=== PATIENT | male | born 1965 | race Caucasian/White ===

== ENCOUNTER 2022-06-07 15:23 | Outpatient (REF) | payer OTHER, SELFPAY ==
--- NOTE | ~2022-06-07 | US_ITS ---
EXAMINATION: US RETROPERITONEAL LIMITED (RENAL ONLY) CLINICAL INFORMATION: Flank pain, hypertension. COMPARISON: None TECHNIQUE: Real-time imaging of the kidneys. FINDINGS: RIGHT KIDNEY: 9.8 x 6.9 x 6.7 cm (SAG x AP x TRV). The kidney is normal in size, contour, and echogenicity. Renal cortical thickness is normal. No calculi or focal parenchymal lesions. No hydronephrosis. LEFT KIDNEY: 11.5 x 5.8 x 7.0 cm (SAG x AP x TRV). The kidney is normal in size, contour, and echogenicity. Renal cortical thickness is normal. No calculi or focal parenchymal lesions. No hydronephrosis. US/US renal BI IMPRESSION: Normal renal ultrasound.
== END 2022-06-07 15:24 | disposition home or self-care (01) ==
LOC: HO.HMGCX 15:23
PROVIDERS: PCP Internal Medicine; Visit Provider Internal Medicine
DX: R10.9 Unspecified abdominal pain (principal)
CPT/HCPCS: 76775

== ENCOUNTER 2022-11-20 17:51 | Inpatient (IN) | payer OTHER, SELFPAY ==
--- NOTE | ~2022-11-20 | CT_ITS ---
EXAMINATION: CT ABDOMEN AND PELVIS WITH CONTRAST CLINICAL INFORMATION: Upper GI bleed. ? esophageal varices COMPARISON: None. TECHNIQUE: Multidetector volumetric imaging was performed from the superior aspect of the liver through the pubic symphysis following administration of 85 mL Omnipaque 300 intravenous contrast. Sagittal and coronal reformatted images were obtained on the technologist workstation.. This CT examination was performed using dose optimization techniques as appropriate, variously including the following: *Automated exposure control *Adjustment of mA and/or kV according to patient size (this includes techniques or standardized protocols for targeted exams where dose is matched to indication/reason for exam; i.e. extremities or head) *Use of iterative reconstruction technique DLP: 871 mGy-cm FINDINGS: LUNG BASES: The visualized lung bases are unremarkable. LIVER, GALLBLADDER, AND BILIARY TREE: Liver demonstrates a nodular contour suggesting underlying fibrotic/cirrhotic changes. Subtle scattered subcentimeter hypodensities are seen but these are too small to characterize further on this study. Gallstones in the dependent aspect of the otherwise unremarkable gallbladder PANCREAS: Unremarkable. SPLEEN: Splenomegaly with maximal AP diameter of 16.7 cm. ADRENAL GLANDS: Unremarkable. KIDNEYS AND URETERS: The kidneys are normal in size, shape, and attenuation. No hydronephrosis, hydroureter, or calculi seen. No perinephric stranding. BLADDER: Unremarkable. GASTROINTESTINAL TRACT: Colon is mostly decompressed. There is mild fatty replacement in the colonic wall more so in the ascending colon. This could represent sequela of prior inflammatory change but I do not appreciate any abnormal enhancement to suggest an acute inflammatory process. Appendix is unremarkable. Visualized small bowel is unremarkable. Nasogastric tube seen within the stomach. ABDOMINAL WALL: No significant hernia is appreciated. LYMPHOVASCULAR STRUCTURES: Vascular calcification within the aorta iliac system. Visualized superior mesenteric vein, splenic vein, portal veins, and hepatic veins are grossly patent. A few small paraesophageal varicosities are noted PELVIC VISCERA: Unremarkable. OSSEOUS STRUCTURES: Mild multilevel degenerative changes in the spine CT/CT abdomen pelvis w IV con IMPRESSION: Nodular contour to the liver suggesting underlying fibrotic/cirrhotic changes. There is splenomegaly and small paraesophageal varicosities suggesting underlying portal hypertension. No acute intra-abdominal process seen. There is mild fatty replacement in the colonic wall more so in the ascending colon. This could represent sequela of prior inflammatory change but I do not appreciate any abnormal enhancement to suggest an acute inflammatory process.
[2022-11-20 19:01] LABS: MANUAL DIFF FLAG NO
[2022-11-20 19:02] LABS: Basophils Absolute Auto 0.1 X10*3/uL (0.0-0.2); Basophils Percent Auto 0.4 % (0-2); Eosinophils Percent Auto 0.1 % (0-4); Hematocrit 33.5 % (42.0-52.0); Hemoglobin 12.1 g/dl (14.0-18.0); Imm Gran Abs Auto 0.07 X10*3/uL (0.00-0.03); Imm Gran Pct Auto 0.5 % (0.0-0.4); Lymphocytes Absolute Auto 1.3 X10*3/uL (1.2-4.9); Lymphocytes Percent Auto 9.9 % (20-40); Mean Corpuscular HGB Conc 36.1 g/dl (31.0-36.0); Mean Corpuscular Hemoglobin 35.2 pg (27.0-33.0); Mean Corpuscular Volume 97.4 fL (80.0-98.0); Mean Platelet Volume 9.6 fL (9.4-12.4); Monocytes Absolute Auto 1.1 X10*3/uL (0.1-1.2); Monocytes Percent Auto 7.9 % (2-11); Neutrophils Absolute Auto 10.8 x10*3/uL (2.0-8.3); Neutrophils Percent Auto 81.2 % (45-73); Red Blood Count 3.44 X10*6/uL (4.60-5.80); White Blood Count 13.3 X10*3/uL (4.8-10.8)
[2022-11-20 19:03] LABS: Platelet Count 96 X10*3/uL (160-400)
[2022-11-20 19:08] LABS: INTERNATIONAL NORM RATIO 1.3 (0.9-1.1); Prothrombin Time 14.7 SEC (10.0-13.1)
[2022-11-20 19:11] LABS: Partial Thromboplastin Time 28.6 SEC (26.0-36.4)
[2022-11-20 19:21] LABS: Ethanol < 10 mg/dL
[2022-11-20 19:28] LABS: Alanine Aminotransferase 38 U/L (0-40); Albumin Level 3.1 g/dL (3.5-5.0); Alkaline Phosphatase 93 U/L (39-117); Anion Gap 15 (12-20); Aspartate Amino Transferase 58 U/L (5-37); Bilirubin Direct 1.7 mg/dL (0.0-0.5); Bilirubin Total 4.4 mg/dL (0.0-1.0); Blood Urea Nitrogen 33 mg/dL (9-16); Calcium 8.9 mg/dL (8.4-10.2); Carbon Dioxide 25 mmol/L (22-29); Chloride 101 mmol/L (96-108); Estimated Glomerular Filt Rate > 60; Glucose Random 161 mg/dL (60-115); Lipase 17 U/L (8-78); Magnesium 1.4 mg/dL (1.6-2.6); Potassium 4.8 mmol/L (3.3-5.1); Sodium 136 mmol/L (135-145); Total Protein 5.8 g/dL (6.5-8.0)
[2022-11-20 20:16] VITALS: BP 113/83; PULSE 137; RESP 18; TEMP 36; O2SAT 99; BMI 38.0
--- NOTE | 2022-11-20 20:16 | ED.NAVMDI ---
HPI - Nausea/Vomiting/Diarrhea General Chief complaint: Nausea/Vomiting/Diarrhea <SHAZIA Gates - Last Filed: 11/20/22 20:22> Stated complaint: vomiting blood <SHAZIA Gates - Last Filed: 11/20/22 20:22> Time Seen by Provider: 11/20/22 21:10 <SHAZIA Gates - Last Filed: 11/20/22 20:22> Source: patient, family, RN notes reviewed and old records reviewed <Teja Barreto - Last Filed: 11/20/22 23:26> Mode of arrival: ambulatory <Teja Barreto - Last Filed: 11/20/22 23:26> Limitations: no limitations <Teja Barreto - Last Filed: 11/20/22 23:26> History of Present Illness HPI Narrative: A 57-year-old male past medical history significant for alcohol dependence, hypertension, obesity presents for evaluation of ?vomiting blood. ? Patient reports that this morning approximately 12 hours ago while at work he felt nauseous and vomited ?a lot of bright red blood. He states that he has vomited a total of 7 times today and as always been either bright red blood or coffee-ground in appearance. He reports he also started with dark black stool today Denies any history of GI bleed He denies any abdominal pain The patient is not on any anticoagulation He reports that he uses ibuprofen 600 mg every other day He reports that he drinks approximately 8 beers per day and occasionally also has ?rum and coke. The patient denies any history of alcohol withdrawal His last drink was late last night <Teja Barreto - Last Filed: 11/20/22 23:26> Related Data Home medications: Previous Rx's Medication Instructions Recorded sildenafil 100 mg tablet (Viagra) 100 mg PO DAILY PRN sexual 07/22/22 activity #14 tabs lisinopril 20 1 tab PO DAILY 90 days #90 tabs 08/11/22 mg-hydrochlorothiazide 25 mg tablet <SHAZIA Gates - Last Filed: 11/20/22 20:22> Allergies/Adverse reactions: Allergies Allergy/AdvReac Type Severity Reaction Status Date / Time No Known Allergies Allergy Verified 11/20/22 20:16 <SHAZIA Gates - Last Filed: 11/20/22 20:22> Review of Systems Constitutional: Constitutional: Denies anorexia, Denies body ache(s), Denies lethargy, Denies malaise and Denies weakness <Teja Barreto - Last Filed: 11/20/22 23:26> Cardiovascular: Cardiovascular: Denies chest pain and Denies dyspnea <Teja Barreto - Last Filed: 11/20/22 23:26> Respiratory: Respiratory: Denies cough and Denies dyspnea <Teja Barreto - Last Filed: 11/20/22 23:26> Gastrointestinal: Gastrointestinal: Denies abdominal pain, Reports melena and Reports coffee ground emesis <Teja Barreto - Last Filed: 11/20/22 23:26> Neurologic: Denies weakness <Teja Barreto - Last Filed: 11/20/22 23:26> PMFSH Past Medical History Medical History: Medical History (Updated 11/20/22 @ 21:56 by Teja Barreto) Erectile dysfunction Fractured coccyx Hypertension Lumbar stress fracture Obesity (BMI 30-39.9) Tubular adenoma of colon <SHAZIA Gates - Last Filed: 11/20/22 20:22> Surgical History: Surgical History (Updated 05/13/20 @ 06:09 by Melissa [place] Deyanira) No pertinent past surgical history <SHAZIA Gates - Last Filed: 11/20/22 20:22> Family History Family History: Family History (Updated 05/22/22 @ 18:08 by Dalton Pisano MD) Father No problems noted. Mother No problems noted. Brother Alcohol abuse Brother CVA (cerebral vascular accident) <SHAZIA Gates - Last Filed: 11/20/22 20:22> Social History Social History: Social History (Updated 05/22/22 @ 18:08 by Dalton Pisano MD) Housing: House Alcohol intake: current Alcohol intake frequency: 3 or more drinks per day Alcohol type: beer and hard liquor Patient Tobacco Use Status: Former Tobacco user Years Smoked: stopped 2016 but does cigar Smoked in Last 30 Days: No e-Cigarette/Vaping Use: Never Used Second Hand Smoke Exposure: No Use of substances other than those prescribed or required for medical reasons: No Advance Directives: No Advance Directives Information Provided: Yes Current occupational status: employed Cognitive needs: No Hearing needs: No Vision needs: Yes <SHAZIA Gates - Last Filed: 11/20/22 20:22> Physical Exam Vital Signs: Vital Signs: Last Vital Signs Temp 98.0 F 11/20/22 22:58 Pulse 122 H 11/20/22 22:58 Resp 20 11/20/22 22:58 BP 115/75 11/20/22 22:58 Pulse Ox 97 11/20/22 22:58 O2 Del Method Room Air 11/20/22 22:58 BMI result Body Mass Index 38.0 <SHAZIA Gates - Last Filed: 11/20/22 20:22> Vital Signs: Last Vital Signs Temp 98.0 F 11/20/22 22:58 Pulse 122 H 11/20/22 22:58 Resp 20 11/20/22 22:58 BP 115/75 11/20/22 22:58 Pulse Ox 97 11/20/22 22:58 O2 Del Method Room Air 11/20/22 22:58 BMI result Body Mass Index 38.0 <Teja Barreto - Last Filed: 11/20/22 23:26> Const: General: healthy appearing, comfortable, no acute distress, alert and awake <Teja Barreto - Last Filed: 11/20/22 23:26> Nutritional Appearance: well nourished <Teja Barreto - Last Filed: 11/20/22 23:26> Orientation/consciousness: patient oriented x3 <Teja Barreto - Last Filed: 11/20/22 23:26> HEENT: Head: Yes normocephalic and Yes atraumatic <Teja Barreto - Last Filed: 11/20/22 23:26> Resp: Effort & Inspection: normal respiratory effort, able to speak in complete sentences, no audible wheezes and not labored <Teja Barreto - Last Filed: 11/20/22 23:26> Auscultation: clear to auscultation bilaterally <Teja Barreto - Last Filed: 11/20/22 23:26> Cardio: Rate: regular rate <Teja Barreto - Last Filed: 11/20/22 23:26> Rhythm: regular rhythm <Teja Barreto - Last Filed: 11/20/22 23:26> GI: Inspection: No distended <Teja Rendony - Last Filed: 11/20/22 23:26> Palpation (GI): Soft to palpation, not firm, nontender, no guarding and not rigid <Teja Rendony - Last Filed: 11/20/22 23:26> Auscultation: normoactive bowel sounds <Teja Rendony - Last Filed: 11/20/22 23:26> Rectal Exam - Male: Yes visual inspection normal, Yes normal sphincter tone, Yes heme positive stool and Yes other (Stool is black in color) <Teja Barreto - Last Filed: 11/20/22 23:26> Skin: General skin exam: no rashes or lesions noted and elasticity normal <Teja Rendony - Last Filed: 11/20/22 23:26> Neuro: General: patient oriented x3 <Tejanikki Barreto - Last Filed: 11/20/22 23:26> Cranial nerves: Yes CN's II-XII intact bilaterally and Yes Bilaterally intact EOM present <Teja Barreto - Last Filed: 11/20/22 23:26> Cognition (Neuro): normal cognition <Teja Barreto Last Filed: 11/20/22 23:26> Course Course Course Narrative: RME - 57 y/o male with history of HTN, obesity, chronic back pain on intermittent NSAIDs who presents to the ER for evaluation of acute onset of projectile bright red vomitus and coffee ground emesis that started this morning. He has had 7 episodes today, last was 20 minutes ago. No abdominal pain. Daily ETOH. Labs show Tbili 4.4. new anemia, worsening thrombocytopenia. no hx liver disease that he knows of. Plan: IV PPI, ?octreotide. add hepatitis panel, defer imaging to main ER provider. next to go back <SHAZIA Gates - Last Filed: 11/20/22 20:22> Reevaluation(s) Reevaluation #1: Patient had NG tube placed with approximately 40-50 cc of dark red blood withdrawn. The patient did vomit dark red blood again after the NG tube was placed. I spoke with GI, Dr. Rodriguez who recommends admission to medical service, NPO and the patient will be scoped in the morning. He recommends starting octreotide but does not recommend ceftriaxone at this time. <Teja Barreto - Last Filed: 11/20/22 23:26> Time: 23:25 <Teja Barreto - Last Filed: 11/20/22 23:26> Medications Administered Discontinued Medications Generic Name Dose Route Start Last Admin Trade Name Freq PRN Reason Stop Dose Admin Sodium Chloride 1,000 mls @ 999 mls/hr 11/20/22 20:30 11/20/22 22:16 Ns IV 11/20/22 21:30 Infused .Q1H1M BETSY Infusion Iohexol 100 ml 11/20/22 22:19 11/20/22 22:20 Iohexol 350 Mg/Ml 100 Ml Infus..Btl IV 11/20/22 22:20 85 ml ONCE ONE Administration Ondansetron HCl 4 mg 11/20/22 23:13 11/20/22 23:22 Ondansetron Hcl 4 Mg/2 Ml Vial IVPUSH 11/20/22 23:14 4 mg ONCE ONE Administration Pantoprazole Sodium 80 mg 11/20/22 20:19 11/20/22 21:17 Pantoprazole Sodium 40 Mg/10 Ml Vial IVPUSH 11/20/22 20:20 80 mg ONCE ONE Administration <SHAZIA Gates - Last Filed: 11/20/22 20:22> Medications Administered Discontinued Medications Generic Name Dose Route Start Last Admin Trade Name Freq PRN Reason Stop Dose Admin Sodium Chloride 1,000 mls @ 999 mls/hr 11/20/22 20:30 11/20/22 22:16 Ns IV 11/20/22 21:30 Infused .Q1H1M BETSY Infusion Iohexol 100 ml 11/20/22 22:19 11/20/22 22:20 Iohexol 350 Mg/Ml 100 Ml Infus..Btl IV 11/20/22 22:20 85 ml ONCE ONE Administration Ondansetron HCl 4 mg 11/20/22 23:13 11/20/22 23:22 Ondansetron Hcl 4 Mg/2 Ml Vial IVPUSH 11/20/22 23:14 4 mg ONCE ONE Administration Pantoprazole Sodium 80 mg 11/20/22 20:19 11/20/22 21:17 Pantoprazole Sodium 40 Mg/10 Ml Vial IVPUSH 11/20/22 20:20 80 mg ONCE ONE Administration <Teja Barreto - Last Filed: 11/20/22 23:26> Medical Decision Making Medical Decision Making MDM Narrative: 57-year-old male presents for evaluation of vomiting blood. He has multiple risk factors for upper GI bleed including alcohol abuse and NSAID use. Patient is black stool on exam that is heme positive. He was initially tachycardic on arrival to 137. This improved to 114 without intervention. The patient's initial H&H was 12.1 and 33.5. [place] [address]. Patient's BUN to creatinine ratio was over 30 his magnesium is low at 1.4. The patient's total bilirubin is 4.4 although he has no abdominal tenderness on exam. Patient has mild transaminitis with an AST of 58 and a normal alk-phos. Patient has no known history of esophageal varices. He was given Protonix 80 mg IV. He clearly has an upper GI bleed, we will put an NG tube in to see if there is any active bleeding. There is no indication for transfusion at this time. The patient is not anticoagulated. Will get a CT scan of the abdomen pelvis to evaluate for esophageal varices <Teja Barreto - Last Filed: 11/20/22 23:26> Differential Diagnosis Upper GI bleed Peptic ulcer disease Esophageal varices Liver cirrhosis <Teja Barreto - Last Filed: 11/20/22 23:26> Lab Data Result Diagrams: 11/20/22 18:57 11/20/22 18:57 <SHAZIA Gates - Last Filed: 11/20/22 20:22> Labs: Lab Results 11/20/22 11/20/22 11/20/22 Range/Units 18:57 18:57 18:57 WBC 13.3 H (4.8-10.8) X10*3/uL RBC 3.44 L (4.60-5.80) X10*6/uL Hgb 12.1 L (14.0-18.0) g/dl Hct 33.5 L (42.0-52.0) % MCV 97.4 (80.0-98.0) fL MCH 35.2 H (27.0-33.0) pg MCHC 36.1 H (31.0-36.0) g/dl RDW 13.0 (11.0-16.0) % Plt Count 96 L (160-400) X10*3/uL MPV 9.6 (9.4-12.4) fL Immature Gran % (Auto) 0.5 H (0.0-0.4) % Neut % (Auto) 81.2 H (45-73) % Lymph % (Auto) 9.9 L (20-40) % Thayer % (Auto) 7.9 (2-11) % Eos % (Auto) 0.1 (0-4) % Baso % (Auto) 0.4 (0-2) % Lymph # (Auto) 1.3 (1.2-4.9) X10*3/uL Thayer # (Auto) 1.1 (0.1-1.2) X10*3/uL Eos # (Auto) 0.0 (0.0-0.4) X10*3/uL Baso # (Auto) 0.1 (0.0-0.2) X10*3/uL Abs Immat Gran (auto) 0.07 H (0.00-0.03) X10*3/uL Absolute Neuts (auto) 10.8 H (2.0-8.3) x10*3/uL Absolute Nucleated RBC 0.000 (0.0-0.012) X10*3/uL Nucleated RBC % (auto) 0.0 (0.0-0.2) /100WBC PT 14.7 H (10.0-13.1) SEC INR 1.3 H (0.9-1.1) APTT 28.6 (26.0-36.4) SEC Sodium 136 (135-145) mmol/L Potassium 4.8 (3.3-5.1) mmol/L Chloride 101 (96-108) mmol/L Carbon Dioxide 25 (22-29) mmol/L Anion Gap 15 (12-20) BUN 33 H (9-16) mg/dL Creatinine 0.90 (0.5-1.4) mg/dL Estim Creat Clear Calc TNP Estimated GFR > 60 Random Glucose 161 H (60-115) mg/dL Calcium 8.9 (8.4-10.2) mg/dL Magnesium 1.4 L* (1.6-2.6) mg/dL Total Bilirubin 4.4 H (0.0-1.0) mg/dL Direct Bilirubin 1.7 H (0.0-0.5) mg/dL AST 58 H (5-37) U/L ALT 38 (0-40) U/L Alkaline Phosphatase 93 (39-117) U/L Total Protein 5.8 L (6.5-8.0) g/dL Albumin 3.1 L (3.5-5.0) g/dL Lipase 17 (8-78) U/L Stool Occult Blood (NEGATIVE) Ethyl Alcohol mg/dL COVID-19 ([facility]) (Negative) COVID-19 Clin Com 11/20/22 11/20/22 11/20/22 Range/Units 18:57 21:37 21:37 WBC (4.8-10.8) X10*3/uL RBC (4.60-5.80) X10*6/uL Hgb (14.0-18.0) g/dl Hct (42.0-52.0) % MCV (80.0-98.0) fL MCH (27.0-33.0) pg MCHC (31.0-36.0) g/dl RDW (11.0-16.0) % Plt Count (160-400) X10*3/uL MPV (9.4-12.4) fL Immature Gran % (Auto) (0.0-0.4) % Neut % (Auto) (45-73) % Lymph % (Auto) (20-40) % Thayer % (Auto) (2-11) % Eos % (Auto) (0-4) % Baso % (Auto) (0-2) % Lymph # (Auto) (1.2-4.9) X10*3/uL Thayer # (Auto) (0.1-1.2) X10*3/uL Eos # (Auto) (0.0-0.4) X10*3/uL Baso # (Auto) (0.0-0.2) X10*3/uL Abs Immat Gran (auto) (0.00-0.03) X10*3/uL Absolute Neuts (auto) (2.0-8.3) x10*3/uL Absolute Nucleated RBC (0.0-0.012) X10*3/uL Nucleated RBC % (auto) (0.0-0.2) /100WBC PT (10.0-13.1) SEC INR (0.9-1.1) APTT (26.0-36.4) SEC Sodium (135-145) mmol/L Potassium (3.3-5.1) mmol/L Chloride (96-108) mmol/L Carbon Dioxide (22-29) mmol/L Anion Gap (12-20) BUN (9-16) mg/dL Creatinine (0.5-1.4) mg/dL Estim Creat Clear Calc Estimated GFR Random Glucose (60-115) mg/dL Calcium (8.4-10.2) mg/dL Magnesium (1.6-2.6) mg/dL Total Bilirubin (0.0-1.0) mg/dL Direct Bilirubin (0.0-0.5) mg/dL AST (5-37) U/L ALT (0-40) U/L Alkaline Phosphatase (39-117) U/L Total Protein (6.5-8.0) g/dL Albumin (3.5-5.0) g/dL Lipase (8-78) U/L Stool Occult Blood POSITIVE (NEGATIVE) Ethyl Alcohol < 10 mg/dL COVID-19 ([facility]) Negative (Negative) COVID-19 Clin Com See Note <SHAZIA Gates - Last Filed: 11/20/22 20:22> Lab Results 11/20/22 11/20/22 11/20/22 Range/Units 18:57 18:57 18:57 WBC 13.3 H (4.8-10.8) X10*3/uL RBC 3.44 L (4.60-5.80) X10*6/uL Hgb 12.1 L (14.0-18.0) g/dl Hct 33.5 L (42.0-52.0) % MCV 97.4 (80.0-98.0) fL MCH 35.2 H (27.0-33.0) pg MCHC 36.1 H (31.0-36.0) g/dl RDW 13.0 (11.0-16.0) % Plt Count 96 L (160-400) X10*3/uL MPV 9.6 (9.4-12.4) fL Immature Gran % (Auto) 0.5 H (0.0-0.4) % Neut % (Auto) 81.2 H (45-73) % Lymph % (Auto) 9.9 L (20-40) % Thayer % (Auto) 7.9 (2-11) % Eos % (Auto) 0.1 (0-4) % Baso % (Auto) 0.4 (0-2) % Lymph # (Auto) 1.3 (1.2-4.9) X10*3/uL Thayer # (Auto) 1.1 (0.1-1.2) X10*3/uL Eos # (Auto) 0.0 (0.0-0.4) X10*3/uL Baso # (Auto) 0.1 (0.0-0.2) X10*3/uL Abs Immat Gran (auto) 0.07 H (0.00-0.03) X10*3/uL Absolute Neuts (auto) 10.8 H (2.0-8.3) x10*3/uL Absolute Nucleated RBC 0.000 (0.0-0.012) X10*3/uL Nucleated RBC % (auto) 0.0 (0.0-0.2) /100WBC PT 14.7 H (10.0-13.1) SEC INR 1.3 H (0.9-1.1) APTT 28.6 (26.0-36.4) SEC Sodium 136 (135-145) mmol/L Potassium 4.8 (3.3-5.1) mmol/L Chloride 101 (96-108) mmol/L Carbon Dioxide 25 (22-29) mmol/L Anion Gap 15 (12-20) BUN 33 H (9-16) mg/dL Creatinine 0.90 (0.5-1.4) mg/dL Estim Creat Clear Calc TNP Estimated GFR > 60 Random Glucose 161 H (60-115) mg/dL Calcium 8.9 (8.4-10.2) mg/dL Magnesium 1.4 L* (1.6-2.6) mg/dL Total Bilirubin 4.4 H (0.0-1.0) mg/dL Direct Bilirubin 1.7 H (0.0-0.5) mg/dL AST 58 H (5-37) U/L ALT 38 (0-40) U/L Alkaline Phosphatase 93 (39-117) U/L Total Protein 5.8 L (6.5-8.0) g/dL Albumin 3.1 L (3.5-5.0) g/dL Lipase 17 (8-78) U/L Stool Occult Blood (NEGATIVE) Ethyl Alcohol mg/dL COVID-19 ([facility]) (Negative) COVID-19 Clin Com 11/20/22 11/20/22 11/20/22 Range/Units 18:57 21:37 21:37 WBC (4.8-10.8) X10*3/uL RBC (4.60-5.80) X10*6/uL Hgb (14.0-18.0) g/dl Hct (42.0-52.0) % MCV (80.0-98.0) fL MCH (27.0-33.0) pg MCHC (31.0-36.0) g/dl RDW (11.0-16.0) % Plt Count (160-400) X10*3/uL MPV (9.4-12.4) fL Immature Gran % (Auto) (0.0-0.4) % Neut % (Auto) (45-73) % Lymph % (Auto) (20-40) % Thayer % (Auto) (2-11) % Eos % (Auto) (0-4) % Baso % (Auto) (0-2) % Lymph # (Auto) (1.2-4.9) X10*3/uL Thayer # (Auto) (0.1-1.2) X10*3/uL Eos # (Auto) (0.0-0.4) X10*3/uL Baso # (Auto) (0.0-0.2) X10*3/uL Abs Immat Gran (auto) (0.00-0.03) X10*3/uL Absolute Neuts (auto) (2.0-8.3) x10*3/uL Absolute Nucleated RBC (0.0-0.012) X10*3/uL Nucleated RBC % (auto) (0.0-0.2) /100WBC PT (10.0-13.1) SEC INR (0.9-1.1) APTT (26.0-36.4) SEC Sodium (135-145) mmol/L Potassium (3.3-5.1) mmol/L Chloride (96-108) mmol/L Carbon Dioxide (22-29) mmol/L Anion Gap (12-20) BUN (9-16) mg/dL Creatinine (0.5-1.4) mg/dL Estim Creat Clear Calc Estimated GFR Random Glucose (60-115) mg/dL Calcium (8.4-10.2) mg/dL Magnesium (1.6-2.6) mg/dL Total Bilirubin (0.0-1.0) mg/dL Direct Bilirubin (0.0-0.5) mg/dL AST (5-37) U/L ALT (0-40) U/L Alkaline Phosphatase (39-117) U/L Total Protein (6.5-8.0) g/dL Albumin (3.5-5.0) g/dL Lipase (8-78) U/L Stool Occult Blood POSITIVE (NEGATIVE) Ethyl Alcohol < 10 mg/dL COVID-19 ([facility]) Negative (Negative) COVID-19 Clin Com See Note <Teja Barreto - Last Filed: 11/20/22 23:26> Discharge Plan Discharge Clinical Impression: Acute upper GI bleed <SHAZIA Gates - Last Filed: 11/20/22 20:22> Patient Disposition: Admitted As Inpatient <SHAZIA Gates - Last Filed: 11/20/22 20:22>
[2022-11-20 20:51] VITALS: BP 116/69; PULSE 114; RESP 15; TEMP 37.4; O2SAT 99
[2022-11-20] MEDS: 0.9 % Sodium Chloride 1,000 ML 999 ML IV (21:01)
[2022-11-20] MEDS: Pantoprazole Sodium 40 MG/10 ML VIAL 80 MG IVPUSH (21:17)
--- NOTE | 2022-11-20 21:40 | PHA.MEDREC ---
Pharmacy Consult ? Medication Reconciliation Pharmacy has completed the medication reconciliation.
[2022-11-20 21:48] LABS: OBS Int Ctl Valid YES; OBS1 POSITIVE (NEGATIVE)
[2022-11-20 22:03] LABS: COVID-19 Test Negative (Negative); IDNOW Serial# 6674DD1D
[2022-11-20] MEDS: iohexoL 350 MG/ML 100 ML INFUS..BTL IV (22:20)
[2022-11-20 22:58] VITALS: BP 115/75; PULSE 122; RESP 20; TEMP 36.7; O2SAT 97
[2022-11-20] MEDS: ondansetron HCL 4 MG/2 ML VIAL IVPUSH (23:22)
[2022-11-20] MEDS: Octreotide Acetate 100 MCG/ML AMPUL 50 MCG IVPUSH (23:32)
[2022-11-21] VITALS (9 sets, daily range): BP systolic 102–135; BP diastolic 53–76; PULSE 88–114; RESP 13–20; TEMP 36.2–37.2; O2SAT 94–98; BMI 38.1
--- NOTE | 2022-11-21 00:01 | PC.NURSE ---
handoff to rich zuniga
[2022-11-21 00:14] LABS: Hematocrit 29.7 % (42.0-52.0); Hemoglobin 10.8 g/dl (14.0-18.0)
--- NOTE | 2022-11-21 00:50 | P.HPHOSP_ITS ---
History of Present Illness Date of Service: 11/21/22 Chief Complaint: vomiting blood 57-year-old male with past medical history of hypertension, alcohol abuse daily, presents to the hospital with complaints of coffee-ground emesis. Patient reports having multiple episodes of recurrent coffee-ground emesis. Hav ing no abdominal pain, no chest pain, no trauma, no nausea, no diarrhea, did developed tarry black stools eventually, but reports no other acute complaint. Denies any shortness of breath, no urinary symptoms and no lower extremity edema. Denies any previous similar episode. Reports taking ibuprofen 800 every other day for back pain for the past 4-5 months. On arrival to the ED patient found to have a heart rate of 137 otherwise stable Labs are significant for WBC count of 13.3, hemoglobin of 12.1 that dropped to 10.8 and 29.7 after 6 hours, INR of 1.3, magnesium of 1.4, total bili of 4.4, direct bili of 1.7, AST of 50, abdomen pelvic CT shows evidence of cirrhotic changes, splenomegaly and small paraesophageal varicosities, suggesting underlying hypertension, NG tube to placed, GI consult, patient will be admitted for further management Review of Systems Review of Systems: Yes all other systems are reviewed and are negative [facility] Medical History Erectile dysfunction Fractured coccyx Hypertension Lumbar stress fracture Obesity (BMI 30-39.9) Tubular adenoma of colon Family History Father No problems noted. Mother No problems noted. Brother Alcohol abuse Brother CVA (cerebral vascular accident) Surgical History No pertinent past surgical history Social History Housing: House Alcohol intake: current Alcohol intake frequency: 3 or more drinks per day Alcohol type: beer and hard liquor Patient Tobacco Use Status: Former Tobacco user Years Smoked: stopped 2015 but does cigar Smoked in Last 30 Days: No e-Cigarette/Vaping Use: Never Used Second Hand Smoke Exposure: No Use of substances other than those prescribed or required for medical reasons: No Advance Directives: No Advance Directives Information Provided: Yes Current occupational status: employed Cognitive needs: No Hearing needs: No Vision needs: Yes Meds Allergies Allergy/AdvReac Type Severity Reaction Status Date / Time No Known Allergies Allergy Verified 11/20/22 20:16 Active Medications: Current Medications Pharmacy Consult (Consult Rx Perform Med Rec) 1 each MISCELLANE ONCE PRN PRN Reason: Consult order Physical Exam Vital Signs and Narrative: Vital Signs: Last Vital Signs Temp 98.0 F 11/20/22 22:58 Pulse 122 H 11/20/22 22:58 Resp 20 11/20/22 22:58 BP 115/75 11/20/22 22:58 Pulse Ox 97 11/20/22 22:58 O2 Del Method Room Air 11/20/22 22:58 BMI result Body Mass Index 38.0 Const: General: cooperative and no acute distress Orientation/consciousness: patient oriented x3 HEENT: Other: NG tube in place, draining dark red blood Eyes: General: appearance normal, both eyes and all related structures Pupils: Equal, round and reactive pupils present Resp: Effort & Inspection: normal respiratory effort Auscultation: clear to auscultation bilaterally Cardio: Rate: regular rate Rhythm: regular rhythm GI: Palpation (GI): Soft to palpation Auscultation: normal bowel sounds Skin: General skin exam: no rashes or lesions noted Neuro: General: patient oriented x3 Cranial nerves: Yes Equal, round and reactive pupils present Cognition (Neuro): normal cognition Extrem: General: Yes normal to inspection and Yes no pedal edema Results Labs 11/21/22 00:06 11/20/22 18:57 Labs: Laboratory Results - last 24 hr 11/20/22 11/20/22 11/20/22 18:57 18:57 18:57 MCV 97.4 MCH 35.2 H MCHC 36.1 H RDW 13.0 Plt Count 96 L MPV 9.6 Immature Gran % (Auto) 0.5 H Neut % (Auto) 81.2 H Lymph % (Auto) 9.9 L [place] % (Auto) 7.9 Eos % (Auto) 0.1 Baso % (Auto) 0.4 Lymph # (Auto) 1.3 [place] # (Auto) 1.1 Eos # (Auto) 0.0 Baso # (Auto) 0.1 Abs Immat Gran (auto) 0.07 H Absolute Neuts (auto) 10.8 H Absolute Nucleated RBC 0.000 Nucleated RBC % (auto) 0.0 PT 14.7 H INR 1.3 H APTT 28.6 Anion Gap 15 Estim Creat Clear Calc TNP Estimated GFR > 60 Random Glucose 161 H Calcium 8.9 Magnesium 1.4 L* Total Bilirubin 4.4 H Direct Bilirubin 1.7 H AST 58 H ALT 38 Alkaline Phosphatase 93 Total Protein 5.8 L Albumin 3.1 L Lipase 17 Stool Occult Blood Ethyl Alcohol COVID-19 ([facility]) COVID-19 Clin Com 11/20/22 11/20/22 11/20/22 18:57 21:37 21:37 MCV MCH MCHC RDW Plt Count MPV Immature Gran % (Auto) Neut % (Auto) Lymph % (Auto) [place] % (Auto) Eos % (Auto) Baso % (Auto) Lymph # (Auto) [place] # (Auto) Eos # (Auto) Baso # (Auto) Abs Immat Gran (auto) Absolute Neuts (auto) Absolute Nucleated RBC Nucleated RBC % (auto) PT INR APTT Anion Gap Estim Creat Clear Calc Estimated GFR Random Glucose Calcium Magnesium Total Bilirubin Direct Bilirubin AST ALT Alkaline Phosphatase Total Protein Albumin Lipase Stool Occult Blood POSITIVE Ethyl Alcohol < 10 COVID-19 ([facility]) Negative COVID-19 Clin Com See Note Imaging Radiologist's Impressions: Impressions Abdomen/Pelvis CT 11/20/22 22:29 IMPRESSION: Nodular contour to the liver suggesting underlying fibrotic/cirrhotic changes. There is splenomegaly and small paraesophageal varicosities suggesting underlying portal hypertension. No acute intra-abdominal process seen. There is mild fatty replacement in the colonic wall more so in the ascending colon. This could represent sequela of prior inflammatory change but I do not appreciate any abnormal enhancement to suggest an acute inflammatory process. Assessment and Plan (1) Acute upper GI bleed: Status: Acute (2) Liver cirrhosis: Status: Acute Plan patient with history of alcohol abuse presents to the hospital with hemoptysis # hemoptysis - likely secondary to acute upper GI bleed - in the setting of alcohol abuse as well as ibuprofen use every other day - patient placed on PPI IV b.i.d., as well as octreotide drip - hemoglobin stable - has tachycardia - GI consult, plan for endoscopy in a.m. - will keep NPO # liver cirrhosis - likely secondary to alcohol abuse - hepatitis panel pending - GI consulted # alcohol abuse - currently not withdrawing - will place on CIWA - once able to take p.o., can consider starting him on thiamine and folic acid supplement # hypertension - stable - hold antihypertensive in the setting of GI bleed DVT prophylaxis: SCDs given acute GI bleed, patient will require minimum 2 nights inpatient hospital stay for further evaluation Time Spent With Patient Time: Total time managing care of this patient today ____ minutes. Quality Stroke Does the patient have a stroke diagnosis?: No VTE Prior VTE?: No VTE Risk Level:: Medical - moderate - high VTE Device Contraindication: N/A - Device Ordered VTE Drug Contraindication: Treatment Not Indicated
[2022-11-21] MEDS: Octreotide Acetate 500 MCG in 0.9 % Sodium Chloride 500 ML 50.1 MCG IVCONT (01:38)
[2022-11-21] MEDS: Lactated Ringers 1,000 ML 100 ML IVCONT (01:48)
--- NOTE | 2022-11-21 01:58 | PC.NURSE ---
Took over care at 11:30pm, pt medicated per Sep, pt a&o, denies any sob or chest pain, N-Gtube in place and functioning. pt had 700cc of urine out put, pt placed on bedside monitor. no sign of distress. Will continue to monitor
[2022-11-21] MEDS: Pantoprazole Sodium 40 MG/10 ML VIAL IVPUSH ×2 (06:02→16:50)
--- NOTE | 2022-11-21 06:09 | PC.NURSE ---
pt medicated per mar. pt denies any pain.
[2022-11-21 06:37] LABS: Hemoglobin 10.2 g/dl (14.0-18.0)
[2022-11-21 06:58] LABS: Alanine Aminotransferase 31 U/L (0-40); Albumin Level 2.9 g/dL (3.5-5.0); Alkaline Phosphatase 74 U/L (39-117); Anion Gap 11 (12-20); Aspartate Amino Transferase 51 U/L (5-37); Bilirubin Total 3.4 mg/dL (0.0-1.0); Blood Urea Nitrogen 39 mg/dL (9-16); Calcium 8.3 mg/dL (8.4-10.2); Carbon Dioxide 27 mmol/L (22-29); Chloride 104 mmol/L (96-108); Creatinine Clr Calc Pharmacy 95.2; Estimated Glomerular Filt Rate > 60; Glucose Random 144 mg/dL (60-115); Potassium 4.5 mmol/L (3.3-5.1); Sodium 137 mmol/L (135-145); Total Protein 5.2 g/dL (6.5-8.0)
--- NOTE | 2022-11-21 07:23 | PC.NURSE ---
taking over care of pt. Pt alert/oriented. Pt just met with MD concerning endoscopy this morning to assess source of GI bleed. Discussion of possible esophageal varies as cause. NG tube patent and draining dark red on intermittent suction. Approx 50ml in drainage container. IVs running per SEP. call abad within reach, will cont to jose juan.
--- NOTE | 2022-11-21 07:36 | MHC.SHP ---
Pre-Procedural Eval Section A Date of Service: 11/21/22 The patient is an INPATIENT: Yes Changes since office visit: No Cold of Flu in the past 2 weeks, No New Medical Problems, No Changes in Medication and No Patient answered all questions The History & Physical has been completed within 30 days and I have reviewed it.: Yes Section B Chief Complaint: GI Bleed Allergies: Allergies Allergy/AdvReac Type Severity Reaction Status Date / Time No Known Allergies Allergy Verified 11/20/22 20:16 Plan I have reviewed the history and physical and performed a pertinent physical examination on my patient. No changes have occurred unless specified. Time Spent With Patient Time: Total time managing care of this patient today ____ minutes.
--- NOTE | 2022-11-21 07:36 | PM.EVENT ---
Event Note Date of Service: 11/21/22 Event Note: GI consult dictated EGD today for further evaluation of UGI bleed. Pt understands risks and benefits and agrees to proceed. Time Spent With Patient Time: Total time managing care of this patient today ____ minutes.
[2022-11-21] MEDS: Magnesium Sulfate/H2O 2 GM/50 ML PIGGYBACK IV (07:47)
--- NOTE | 2022-11-21 09:40 | PC.NURSE ---
gave report to short stay regarding pt endoscopy. RN said that they would come and get pt at approx 11am.
--- NOTE | 2022-11-21 09:52 | PC.NURSE ---
IVs cont to run, NG tube patent, minimal increase in drainage since check this morning <100ml dark red drainage.
--- NOTE | 2022-11-21 10:10 | MHC.CM.PN ---
Addendum entered by Wilda Hays 11/21/22 10:51: Received notification that patient wants to complete a HCP. HCP completed, signed and witnessed. Original given to patient. Copy placed in chart. Original Note: Attempted to meet with patient in regards to discharge planning. Patient is currently sleeping. Spoke with patient's , Kirstie, via telephone at [phone]. Patient lives with , ambulates independently and had no services prior to coming to the hospital. Patient is employed full-time. No services anticipated to be needed because patient is not homebound. PCP verified. Patient has not received any Covid vaccines. Patient has never completed a HCP. Kirstie will transport patient home when medically stable. Continue to monitor for d/c needs.
--- NOTE | 2022-11-21 10:48 | HO.PM.IMPN ---
Subjective Subjective Date of Service: 11/21/22 Interval History: hematemesis Physical Exam Vital Signs: Vital Signs: Last Vital Signs Temp 98.0 F 11/21/22 07:14 Pulse 106 H 11/21/22 07:14 Resp 18 11/21/22 07:14 BP 119/62 11/21/22 07:14 Pulse Ox 94 11/21/22 07:14 O2 Del Method Room Air 11/21/22 07:14 BMI result Body Mass Index 38.0 General: AO X 3, no acute distress Resp: CTA bilateral, no accessory muscles used CVS: S1,S2,RRR GI: soft, non tender, non distended Neuro: motor grossly intact, alert Psych: appropriate affect, appropriate insight Objective Data Active Medications Lactated Ringer's (Lr) 1,000 mls @ 100 mls/hr IVCONT .Q10H [facility] Last Admin: 11/21/22 01:48 Dose: 100 mls/hr Documented By: UMM Octreotide Acetate 500 mcg/ (Sodium Chloride) 501 mls @ 50.1 mls/hr IVCONT .Q10H [facility] Last Admin: 11/21/22 01:38 Dose: 50 mcg/hr, 50.1 mls/hr Documented By: UMM Ondansetron HCl (Ondansetron Hcl 4 Mg/2 Ml Vial) 4 mg IVPUSH Q8H PRN PRN Reason: Nausea and Vomiting Pantoprazole Sodium (Pantoprazole Sodium 40 Mg/10 Ml Vial) 40 mg IVPUSH BID@0630,1630 [facility] Last Admin: 11/21/22 06:02 Dose: 40 mg Documented By: MELISSA Pharmacy Consult (Consult Rx Perform Med Rec) 1 each MISCELLANE ONCE PRN PRN Reason: Consult order Sodium Chloride (0.9 % Sodium Chloride Flush 3 Ml Syringe) 3 ml IVFLUSH QSHIFT [facility] Last Admin: 11/21/22 07:48 Dose: Not Given Documented By: DEVAUGHN Non-Admin Reason: IV Running Labs 11/21/22 06:20 11/21/22 06:20 Labs: Laboratory Results - last 24 hr 11/20/22 11/20/22 11/20/22 18:57 18:57 18:57 MCV 97.4 MCH 35.2 H MCHC 36.1 H RDW 13.0 Plt Count 96 L MPV 9.6 Immature Gran % (Auto) 0.5 H Neut % (Auto) 81.2 H Lymph % (Auto) 9.9 L [place] % (Auto) 7.9 Eos % (Auto) 0.1 Baso % (Auto) 0.4 Lymph # (Auto) 1.3 [place] # (Auto) 1.1 Eos # (Auto) 0.0 Baso # (Auto) 0.1 Abs Immat Gran (auto) 0.07 H Absolute Neuts (auto) 10.8 H Absolute Nucleated RBC 0.000 Nucleated RBC % (auto) 0.0 PT 14.7 H INR 1.3 H APTT 28.6 Anion Gap 15 Estim Creat Clear Calc TNP Estimated GFR > 60 Random Glucose 161 H Calcium 8.9 Magnesium 1.4 L* Total Bilirubin 4.4 H Direct Bilirubin 1.7 H AST 58 H ALT 38 Alkaline Phosphatase 93 Total Protein 5.8 L Albumin 3.1 L Lipase 17 Stool Occult Blood Ethyl Alcohol COVID-19 ([facility]) COVID-19 Clin Com 11/20/22 11/20/22 11/20/22 18:57 21:37 21:37 MCV MCH MCHC RDW Plt Count MPV Immature Gran % (Auto) Neut % (Auto) Lymph % (Auto) [place] % (Auto) Eos % (Auto) Baso % (Auto) Lymph # (Auto) [place] # (Auto) Eos # (Auto) Baso # (Auto) Abs Immat Gran (auto) Absolute Neuts (auto) Absolute Nucleated RBC Nucleated RBC % (auto) PT INR APTT Anion Gap Estim Creat Clear Calc Estimated GFR Random Glucose Calcium Magnesium Total Bilirubin Direct Bilirubin AST ALT Alkaline Phosphatase Total Protein Albumin Lipase Stool Occult Blood POSITIVE Ethyl Alcohol < 10 COVID-19 ([facility]) Negative COVID-19 Clin Com See Note 11/21/22 06:20 MCV MCH MCHC RDW Plt Count MPV Immature Gran % (Auto) Neut % (Auto) Lymph % (Auto) [place] % (Auto) Eos % (Auto) Baso % (Auto) Lymph # (Auto) [place] # (Auto) Eos # (Auto) Baso # (Auto) Abs Immat Gran (auto) Absolute Neuts (auto) Absolute Nucleated RBC Nucleated RBC % (auto) PT INR APTT Anion Gap 11 L Estim Creat Clear Calc 95.2 Estimated GFR > 60 Random Glucose 144 H Calcium 8.3 L D Magnesium Total Bilirubin 3.4 H Direct Bilirubin AST 51 H ALT 31 Alkaline Phosphatase 74 Total Protein 5.2 L Albumin 2.9 L Lipase Stool Occult Blood Ethyl Alcohol COVID-19 ([facility]) COVID-19 Clin Com Assessment and Plan (1) Liver cirrhosis: Status: Acute Plan 57M PMH etoh dependence presented with hematemesis acute blood loss anemia due to hematemesis in etoh dependence with cirrhosis and 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 Quality Stroke Does the patient have a stroke diagnosis?: No VTE Prior VTE?: No VTE Risk Level:: Medical - moderate - high VTE Device Contraindication: N/A - Device Ordered VTE Drug Contraindication: Treatment Not Indicated
--- NOTE | 2022-11-21 10:53 | PC.NURSE ---
garret from RN at short stay says endo is running a little behind and they will come get ot closer to 1200
[2022-11-21] MEDS: Lactated Ringers 1,000 ML 9 ML IVCONT (12:00)
--- NOTE | 2022-11-21 12:23 | PC.NURSE ---
pt to short stay. next dose of octreotide acetate held bc first bag was still running.
[2022-11-21 13:01] LABS: Hematocrit 27.1 % (42.0-52.0); Hemoglobin 9.5 g/dl (14.0-18.0)
--- NOTE | 2022-11-21 13:37 | CONS_ITS ---
DATE OF SERVICE: 11/21/2022 REFERRING PHYSICIAN: Dr. Barreto REASON FOR CONSULTATION: Hematemesis and upper GI bleeding. HISTORY OF PRESENT ILLNESS: The patient is a pleasant 57-year-old man who presented to the emergency room with complaints of hematemesis. He states he worked yesterday morning when he vomited a large amount of bright red blood and had recurrent episodes of coffee-grounds emesis at home. He presented to the emergency room where he reports having had 1 further episode of emesis and was evaluated. NG tube placement was done, which showed some dark blood with about 50 mL overnight of drainage. He has no complaints of abdominal pain. He does drink approximately 4 to 6 drinks on a daily basis and does have a history of ibuprofen usage every other day for his back discomfort. He denies a prior history of peptic ulcer disease. He was evaluated with laboratory studies and imaging. CT scanning of the abdomen and pelvis shows changes of cirrhosis with splenomegaly and small paraesophageal varicosities. Blood work showed a hematocrit of 33.5 on admission. This dropped somewhat overnight to 28.0. He denies a prior history of peptic ulcer disease or upper GI bleeding. He has not required blood transfusion. PAST MEDICAL HISTORY: 1. Hypertension. 2. Alcohol abuse. 3. Colon polyps. 4. Lumbar stress fracture. 5. Elevated body mass index. 6. Coccyx fracture. CURRENT MEDICATIONS: His current medication list is reviewed in the chart. ALLERGIES: THERE ARE NONE REPORTED. FAMILY HISTORY: This is reviewed with the patient and is noncontributory. SOCIAL HISTORY: Alcohol use is as above. REVIEW OF SYSTEMS: SKIN: No pruritus. HEENT: Negative. CARDIOPULMONARY: He denies shortness of breath or chest pain. GASTROINTESTINAL: As above. GENITOURINARY: Negative. NEUROPSYCHIATRIC: Negative. PHYSICAL EXAMINATION: GENERAL: Shows a pleasant male, lying comfortably on a stretcher. VITAL SIGNS: Reviewed in electronic medical record and are stable. SKIN: Anicteric. HEENT: Shows no scleral icterus. NECK: Without lymphadenopathy or thyromegaly. LUNGS: Clear. HEART: Shows a regular rate and rhythm. S1, S2. No murmur. ABDOMEN: Soft without focal masses or tenderness. Bowel sounds are present. No organomegaly is noted. EXTREMITIES: Show trace edema. DIAGNOSTIC DATA: Laboratory data and CT scanning are reviewed. IMPRESSION: Upper gastrointestinal bleeding. This could be related to his NSAID use with an NSAID induced ulcer. Also possible is erosive esophagitis and bleeding from esophageal varices with his underlying cirrhosis. I discussed endoscopy with him including risks and benefits. This will be arranged for later today. I agree with following his hematocrit and monitoring him for continued signs of bleeding and blood transfusion needs. I would recommend continuing octreotide, which was started in the emergency room along with pantoprazole. Thanks for asking me to see him. I will follow him in the hospital with you. MD DANIEL Valentin/SHAN / [id number]
--- NOTE | 2022-11-21 14:03 | HO.ANESPROP2 ---
HPI - Anesthesia Eval Consult details Narrative: upper endo for hematemisis with history of alcoholic cirrhosis and varices PMFSH Active Problems Active Problems: All Active Problems (Updated 11/21/22 @ 06:18 by Ayanna Lara MD) Liver cirrhosis (Acute) Acute upper GI bleed (Acute) Tubular adenoma of colon (Acute) Right flank pain (Acute) Bicipital tendinitis of right shoulder (Acute) Annual physical exam (Acute) Multiple pigmented nevi (Acute) Erectile dysfunction (Acute) Hypertension (Acute) Obesity (BMI 30-39.9) (Acute) Past Medical History Medical History Erectile dysfunction Fractured coccyx Hypertension Lumbar stress fracture Obesity (BMI 30-39.9) Tubular adenoma of colon Family History Family History Father No problems noted. Mother No problems noted. Brother Alcohol abuse Brother CVA (cerebral vascular accident) Family history of problems with anesthesia: No Surgical History Surgical History No pertinent past surgical history History of Problems with Anesthesia: No Social History Social History Housing: House Alcohol intake: current Alcohol intake frequency: 3 or more drinks per day Alcohol type: beer and hard liquor Patient Tobacco Use Status: Current someday Tobacco user Cigarettes Per Day: 4 Years Smoked: stopped 2015 but does cigar e-Cigarette/Vaping Use: Never Used Second Hand Smoke Exposure: No service: No Current occupational status: employed Cognitive needs: No Hearing needs: No Vision needs: Yes Meds Allergies Allergy/AdvReac Type Severity Reaction Status Date / Time No Known Allergies Allergy Verified 11/20/22 20:16 Active Medications: Current Medications Lactated Ringer's (Lr) 1,000 mls @ 100 mls/hr IVCONT .Q10H [facility] Last Admin: 11/21/22 12:00 Dose: 9 mls/hr Octreotide Acetate 500 mcg/ (Sodium Chloride) 501 mls @ 50.1 mls/hr IVCONT .Q10H [facility] Last Admin: 11/21/22 01:38 Dose: 50 mcg/hr, 50.1 mls/hr Ondansetron HCl (Ondansetron Hcl 4 Mg/2 Ml Vial) 4 mg IVPUSH Q8H PRN PRN Reason: Nausea and Vomiting Pantoprazole Sodium (Pantoprazole Sodium 40 Mg/10 Ml Vial) 40 mg IVPUSH BID@0630,1630 [facility] Last Admin: 11/21/22 06:02 Dose: 40 mg Pharmacy Consult (Consult Rx Perform Med Rec) 1 each MISCELLANE ONCE PRN PRN Reason: Consult order Sodium Chloride (0.9 % Sodium Chloride Flush 3 Ml Syringe) 3 ml IVFLUSH QSHIFT [facility] Last Admin: 11/21/22 07:48 Dose: Not Given Exam Exam Date and Time: November 21, 2022 1403 Height,Weight and Vital Signs: Height 5 ft 8 in Weight 113.398 kg Last Vital Signs Temp 97.7 F 11/21/22 12:33 Pulse 106 H 11/21/22 12:33 Resp 16 11/21/22 12:33 BP 118/67 11/21/22 12:33 Pulse Ox 98 11/21/22 12:33 O2 Del Method Room Air 11/21/22 12:33 Pertinent Lab Results Pertinent Lab Results: Laboratory Tests 11/20/22 11/20/22 11/20/22 18:57 18:57 18:57 WBC 13.3 H RBC 3.44 L Hgb 12.1 L Hct 33.5 L MCV 97.4 MCH 35.2 H MCHC 36.1 H RDW 13.0 Plt Count 96 L MPV 9.6 Immature Gran % (Auto) 0.5 H Neut % (Auto) 81.2 H Lymph % (Auto) 9.9 L [place] % (Auto) 7.9 Eos % (Auto) 0.1 Baso % (Auto) 0.4 Lymph # (Auto) 1.3 [place] # (Auto) 1.1 Eos # (Auto) 0.0 Baso # (Auto) 0.1 Abs Immat Gran (auto) 0.07 H Absolute Neuts (auto) 10.8 H Absolute Nucleated RBC 0.000 Nucleated RBC % (auto) 0.0 PT 14.7 H INR 1.3 H APTT 28.6 Sodium 136 Potassium 4.8 Chloride 101 Carbon Dioxide 25 Anion Gap 15 BUN 33 H Creatinine 0.90 Estim Creat Clear Calc TNP Estimated GFR > 60 Random Glucose 161 H Calcium 8.9 Magnesium 1.4 L* Total Bilirubin 4.4 H Direct Bilirubin 1.7 H AST 58 H ALT 38 Alkaline Phosphatase 93 Total Protein 5.8 L Albumin 3.1 L Lipase 17 Stool Occult Blood Ethyl Alcohol COVID-19 ([facility]) COVID-19 Clin Com 11/20/22 11/20/22 11/20/22 18:57 21:37 21:37 WBC RBC Hgb Hct MCV MCH MCHC RDW Plt Count MPV Immature Gran % (Auto) Neut % (Auto) Lymph % (Auto) [place] % (Auto) Eos % (Auto) Baso % (Auto) Lymph # (Auto) [place] # (Auto) Eos # (Auto) Baso # (Auto) Abs Immat Gran (auto) Absolute Neuts (auto) Absolute Nucleated RBC Nucleated RBC % (auto) PT INR APTT Sodium Potassium Chloride Carbon Dioxide Anion Gap BUN Creatinine Estim Creat Clear Calc Estimated GFR Random Glucose Calcium Magnesium Total Bilirubin Direct Bilirubin AST ALT Alkaline Phosphatase Total Protein Albumin Lipase Stool Occult Blood POSITIVE Ethyl Alcohol < 10 COVID-19 ([facility]) Negative COVID-19 Clin Com See Note 11/21/22 11/21/22 11/21/22 00:06 06:20 06:20 WBC RBC Hgb 10.8 L 10.2 L Hct 29.7 L 28.0 L MCV MCH MCHC RDW Plt Count MPV Immature Gran % (Auto) Neut % (Auto) Lymph % (Auto) [place] % (Auto) Eos % (Auto) Baso % (Auto) Lymph # (Auto) [place] # (Auto) Eos # (Auto) Baso # (Auto) Abs Immat Gran (auto) Absolute Neuts (auto) Absolute Nucleated RBC Nucleated RBC % (auto) PT INR APTT Sodium 137 Potassium 4.5 Chloride 104 Carbon Dioxide 27 Anion Gap 11 L BUN 39 H Creatinine 1.02 Estim Creat Clear Calc 95.2 Estimated GFR > 60 Random Glucose 144 H Calcium 8.3 L D Magnesium Total Bilirubin 3.4 H Direct Bilirubin AST 51 H ALT 31 Alkaline Phosphatase 74 Total Protein 5.2 L Albumin 2.9 L Lipase Stool Occult Blood Ethyl Alcohol COVID-19 ([facility]) COVID-19 Clin Com 11/21/22 12:53 WBC RBC Hgb 9.5 L Hct 27.1 L MCV MCH MCHC RDW Plt Count MPV Immature Gran % (Auto) Neut % (Auto) Lymph % (Auto) [place] % (Auto) Eos % (Auto) Baso % (Auto) Lymph # (Auto) [place] # (Auto) Eos # (Auto) Baso # (Auto) Abs Immat Gran (auto) Absolute Neuts (auto) Absolute Nucleated RBC Nucleated RBC % (auto) PT INR APTT Sodium Potassium Chloride Carbon Dioxide Anion Gap BUN Creatinine Estim Creat Clear Calc Estimated GFR Random Glucose Calcium Magnesium Total Bilirubin Direct Bilirubin AST ALT Alkaline Phosphatase Total Protein Albumin Lipase Stool Occult Blood Ethyl Alcohol COVID-19 ([facility]) COVID-19 Clin Com Airway Mallampati Class: II TM Dist: >3cm Neck ROM: Full Heart: rrr Lungs: cta Assessment and Plan Assessment Anesthesia Assessment: Anesthesia Plan Discussed and Chart Reviewed Final Anesthetic Review Family History of Problems with Anesthesia: No History of Problems with Anesthesia: No NPO: Yes ASA Class: III and Emergency Final Preanesthetic Review: No Changes in Pt Med Stat, Meds/Allgs Chart Reviewed, Consent Obtained/Reviewed and Anes Risks/Benef Reviewed Patient Risk: Intermediate Procedure Risk: Low Anesthetic Plan Anesthetic Plan: MAC: Disposition: Standard PACU
--- NOTE | 2022-11-21 14:37 | PM.OP ---
Brief Operative Note Date of Service: 11/21/22 Pre-op diagnosis: ugi bleed Post-op diagnosis: same Procedure: egd Surgeon: Jeromy Rodriguez Anesthesia: MAC Was an Roll Wrapper used for this Procedure?: No Estimated blood loss (mL): 2 Pathology: other Condition: stable Disposition: PACU
--- NOTE | 2022-11-21 14:40 | PM.EVENT ---
Event Note Date of Service: 11/22/22 Event Note: EGD/bx multiple gastric ulcers below EGJ, nonbleeding all with clean bases, largest about 25 x 10 mm Grade 1 nonbleeding esophageal varices mild portal hypertensive gastropathy. antral biopsies taken. Rec: f/u bx results d/c octreotide cont ppi no nsaids, etoh,tob repeat EGD in 12 weeks to assess healing Time Spent With Patient Time: Total time managing care of this patient today ____ minutes.
--- NOTE | 2022-11-21 16:24 | PC.NURSE ---
assumed care of patient post upper endoscopy. patient denies pain at this time. able to make needs known. call abad placed within reach
[2022-11-21] MEDS: 0.9 % Sodium Chloride Flush 3 ML SYRINGE IVFLUSH (16:50)
--- NOTE | 2022-11-21 18:31 | PC.NURSE ---
nurse to nurse report called to [facility] [place] @ [phone]
[2022-11-21 19:50] LABS: Hematocrit 36.8 % (42.0-52.0); Hemoglobin 13.2 g/dl (14.0-18.0)
[2022-11-22] MEDS: 0.9 % Sodium Chloride Flush 3 ML SYRINGE IVFLUSH ×4 (00:48→21:05)
--- NOTE | 2022-11-22 01:57 | OP_ITS ---
DATE OF SERVICE: 11/21/2022 SURGEON: Jeromy Rodriguez MD INDICATIONS: Upper GI bleeding. PREOPERATIVE DIAGNOSIS: POSTOPERATIVE DIAGNOSIS: PROCEDURE PERFORMED: Upper endoscopy with biopsy. ESTIMATED BLOOD LOSS: COMPLICATIONS: ANESTHESIA: Medications: Monitored anesthesia care. ASSISTANTS: SPECIMENS: DESCRIPTION OF PROCEDURE: A history and physical was performed. The risks and benefits of the procedure were explained to the patient. Informed consent was obtained. The patient was placed in the left lateral decubitus position. The Olympus video gastroscope was introduced into the esophagus, stomach, and duodenum. Examination was performed and the scope was removed. He tolerated the procedure well and was returned to the recovery area in stable condition. FINDINGS: Esophagus: The esophagus showed 3 chains of small grade 1 varices extending from the EG junction at 42 cm to about 34 cm. There was no stigmata of recent hemorrhage and the varices collapsed with insufflation. Stomach: There were multiple clean-based nonbleeding gastric ulcers below the EG junction. The largest of these measured about 25 x 10 mm. No therapy was performed. No gastric varices were identified. There were mild changes of portal hypertensive gastropathy and some pre-pyloric erosions. Antral biopsies were obtained. Duodenum: The bulb and second portion were normal. IMPRESSION: 1. Gastrointestinal bleeding secondary to gastric ulcers. 2. Small grade 1 esophageal varices, nonbleeding. RECOMMENDATIONS: 1. Follow up with the biopsy results. 2. Discontinue octreotide. 3. Continue with proton pump inhibitor. 4. No NSAIDs, alcohol, or tobacco. 5. He will need repeat EGD in about 12 weeks to assess for healing. MD DANIEL Valentin/ZHANEL / [id number] [facility] HOSPITALNorbert
[2022-11-22 03:17] VITALS: BP 107/61; PULSE 82; RESP 18; TEMP 36.2; O2SAT 97
[2022-11-22 04:30] LABS: HBc Num1 0.07 S/CO (0.00-0.79); HBsAGNum1 0.34 S/CO (0.00-0.99); Hepatitis A Antibody IgM 0.32 Index (0-0.79); Hepatitis B Core Antibody Nonreactive (Nonreactive); Hepatitis B Surface Antigen Negative (Negative); ~HepC Num1 0.09 S/CO (0.00-0.79); ~Hepatitis A Antibody IgM Nonreactive (Nonreactive); ~Hepatitis B Surface Antibody NONREACTIVE (Nonreactive); ~Hepatitis C Antibody Nonreactive (Nonreactive)
[2022-11-22] MEDS: Pantoprazole Sodium 40 MG/10 ML VIAL IVPUSH ×2 (05:19→15:43)
[2022-11-22 06:47] LABS: Hemoglobin 9.4 g/dl (14.0-18.0); Mean Corpuscular HGB Conc 34.8 g/dl (31.0-36.0); Mean Corpuscular Hemoglobin 35.9 pg (27.0-33.0); Mean Corpuscular Volume 103.1 fL (80.0-98.0); Mean Platelet Volume 9.9 fL (9.4-12.4); Red Blood Count 2.62 X10*6/uL (4.60-5.80); Red Cell Distribution Width 13.4 % (11.0-16.0)
[2022-11-22 06:48] LABS: Platelet Count 72 X10*3/uL (160-400)
--- NOTE | 2022-11-22 06:58 | HO.POSTANES ---
Post Anesthesia Evaluation Post Anesthesia Evaluation Vital Signs: Vital Signs Temp Pulse Resp BP Pulse Ox O2 Del Method 11/22/22 03:17 97.1 F 82 18 107/61 97 Room Air 11/21/22 23:42 99.0 F 88 18 107/53 L 98 Room Air Anesthesia: Monitored Mental Status: Awake Pain Control: Satisfactory Nausea/Vomiting: None Hydration: Adequate Anesthesia-Related Issues: No Anes. Related Issues
[2022-11-22 07:45] VITALS: BP 107/56; PULSE 89; RESP 16; TEMP 36.9; O2SAT 99
[2022-11-22 07:51] LABS: Alanine Aminotransferase 42 U/L (0-40); Albumin Level 2.8 g/dL (3.5-5.0); Alkaline Phosphatase 75 U/L (39-117); Anion Gap 11 (12-20); Aspartate Amino Transferase 83 U/L (5-37); Blood Urea Nitrogen 27 mg/dL (9-16); Calcium 8.2 mg/dL (8.4-10.2); Carbon Dioxide 27 mmol/L (22-29); Chloride 105 mmol/L (96-108); Creatinine Clr Calc Pharmacy 95.3; Estimated Glomerular Filt Rate > 60; Glucose Fasting 105 mg/dL (60-99); Potassium 4.2 mmol/L (3.3-5.1); Sodium 139 mmol/L (135-145); Total Protein 5.2 g/dL (6.5-8.0)
[2022-11-22 11:18] VITALS: BP 98/65; PULSE 89; RESP 16; TEMP 36.2; O2SAT 98
--- NOTE | 2022-11-22 13:41 | PM.GIPN ---
Subjective Subjective Date of Service: 11/22/22 Interval History: tolerating clear liquids no hematemesis Critical Care Time (minutes): 0 Physical Exam Vital Signs: Vital Signs: Last Vital Signs Temp 97.2 F 11/22/22 11:18 Pulse 89 11/22/22 11:18 Resp 16 11/22/22 11:18 BP 98/65 11/22/22 11:18 Pulse Ox 98 11/22/22 11:18 O2 Del Method Room Air 11/22/22 11:18 BMI result Body Mass Index 38.1 GI: Other: abdomen is soft and nontender Objective Data Labs 11/22/22 06:28 11/22/22 06:28 Labs: Laboratory Results - last 24 hr 11/20/22 11/21/22 11/22/22 18:57 19:20 06:28 WBC 11.0 H RBC 2.62 L D Hgb 13.2 L D 9.4 L D Hct 36.8 L D 27.0 L D MCV 103.1 H D MCH 35.9 H MCHC 34.8 RDW 13.4 Plt Count 72 L MPV 9.9 Absolute Nucleated RBC 0.000 Nucleated RBC % (auto) 0.0 Sodium Potassium Chloride Carbon Dioxide Anion Gap BUN Creatinine Estim Creat Clear Calc Estimated GFR Fasting Glucose Calcium Total Bilirubin Direct Bilirubin AST ALT Alkaline Phosphatase Total Protein Albumin Hepatitis A IgM Ab Nonreactive Hep Bs Antigen Negative Hep Bs Antibody NONREACTIVE Hep B Core Total Ab Nonreactive Hepatitis C Ab (EIA) Nonreactive 11/22/22 06:28 WBC RBC Hgb Hct MCV MCH MCHC RDW Plt Count MPV Absolute Nucleated RBC Nucleated RBC % (auto) Sodium 139 Potassium 4.2 Chloride 105 Carbon Dioxide 27 Anion Gap 11 L BUN 27 H Creatinine 1.02 Estim Creat Clear Calc 95.3 Estimated GFR > 60 Fasting Glucose 105 H Calcium 8.2 L Total Bilirubin 2.0 H Direct Bilirubin 1.0 H AST 83 H ALT 42 H Alkaline Phosphatase 75 Total Protein 5.2 L Albumin 2.8 L Hepatitis A IgM Ab Hep Bs Antigen Hep Bs Antibody Hep B Core Total Ab Hepatitis C Ab (EIA) Procedures Date of Service Date of Service: 11/22/22 Progress Note: A&P Assessment and plan (1) Acute upper GI bleed: Status: Acute Assessment and Plan: UGIB secondary to gastric ulcers cont bid ppi, can switch to po advance diet follow hct pr advised to avoid nsaids, alcohol and tobacco Time Spent With Patient Time: Total time managing care of this patient today ____ minutes. Quality Stroke Does the patient have a stroke diagnosis?: No VTE Prior VTE?: No VTE Risk Level:: Medical - moderate - high VTE Device Contraindication: N/A - Device Ordered VTE Drug Contraindication: Treatment Not Indicated
[2022-11-22 15:14] VITALS: BP 111/63; PULSE 59; RESP 20; TEMP 36.2; O2SAT 98
--- NOTE | 2022-11-22 15:15 | HO.PM.IMPN ---
Subjective Subjective Date of Service: 11/22/22 Interval History: Seen and evaluated hemoglobin stable tolerating clears no reported bleeding but had black stool no other overnight events Review of Systems Review of Systems: Yes all other systems are reviewed and are negative Physical Exam Vital Signs: Vital Signs: Last Vital Signs Temp 97.2 F 11/22/22 11:18 Pulse 89 11/22/22 11:18 Resp 16 11/22/22 11:18 BP 98/65 11/22/22 11:18 Pulse Ox 98 11/22/22 11:18 O2 Del Method Room Air 11/22/22 14:04 BMI result Body Mass Index 38.1 Const: Other: Constitutional : Awake, interactive, not in distress Neck : Normal inspection, Supple Cardiovascular : RRR, no JVP, no lower extremity edema Respiratory : good bilateral air entry, no crackles, wheezes or rhonchi Gastrointestinal: soft, lax, Normal bowel sounds, Non tender Skin : Warm, Dry Neurological : Alert & oriented x3, No focal deficit Objective Data Active Medications Ondansetron HCl (Ondansetron Hcl 4 Mg/2 Ml Vial) 4 mg IVPUSH Q8H PRN PRN Reason: Nausea and Vomiting Pantoprazole Sodium (Pantoprazole Sodium 40 Mg/10 Ml Vial) 40 mg IVPUSH BID@0630,1630 [facility] Last Admin: 11/22/22 05:19 Dose: 40 mg Documented By: REAL Pharmacy Consult (Consult Rx Perform Med Rec) 1 each MISCELLANE ONCE PRN PRN Reason: Consult order Sodium Chloride (0.9 % Sodium Chloride Flush 3 Ml Syringe) 3 ml IVFLUSH QSHIFT [facility] Last Admin: 11/22/22 09:13 Dose: 3 ml Documented By: JOSÉ Labs 11/22/22 06:28 11/22/22 06:28 Labs: Laboratory Results - last 24 hr 11/20/22 11/22/22 11/22/22 18:57 06:28 06:28 MCV 103.1 H D MCH 35.9 H MCHC 34.8 RDW 13.4 Plt Count 72 L MPV 9.9 Absolute Nucleated RBC 0.000 Nucleated RBC % (auto) 0.0 Anion Gap 11 L Estim Creat Clear Calc 95.3 Estimated GFR > 60 Fasting Glucose 105 H Calcium 8.2 L Total Bilirubin 2.0 H Direct Bilirubin 1.0 H AST 83 H ALT 42 H Alkaline Phosphatase 75 Total Protein 5.2 L Albumin 2.8 L Hepatitis A IgM Ab Nonreactive Hep Bs Antigen Negative Hep Bs Antibody NONREACTIVE Hep B Core Total Ab Nonreactive Hepatitis C Ab (EIA) Nonreactive Assessment and Plan (1) Acute upper GI bleed: Status: Acute (2) Gastric ulcer: Status: Acute Plan 57M PMH etoh dependence presented with hematemesis acute blood loss anemia due to hematemesis from gastric ulcers EGD showed gastric ulcers GI input appreciated continue ppi DC octreotide monitor cbc advance diet as tolerated etoh cirrhosis etoh abstinence, gi following (new diagnosis per patient) CIWA monitring for withdrawal htn restart as tolerated obesity weight loss recommended dvt prophylaxis - mechanical due to gi bleed full code reason for continued hospitalization: monitoring diet tolerance, possibe rebleed pending safe discharge plan Time Spent With Patient Time: Total time managing care of this patient today ____ minutes. Quality Stroke Does the patient have a stroke diagnosis?: No VTE Prior VTE?: No VTE Risk Level:: Medical - moderate - high VTE Device Contraindication: N/A - Device Ordered VTE Drug Contraindication: Treatment Not Indicated
[2022-11-22 19:10] VITALS: BP 120/56; PULSE 90; RESP 20; TEMP 36.1; O2SAT 100
[2022-11-22 23:15] VITALS: BP 103/52; PULSE 82; RESP 20; TEMP 36.6; O2SAT 98
[2022-11-23 04:00] VITALS: BP 100/53; PULSE 84; RESP 16; TEMP 36.3; O2SAT 97
[2022-11-23] MEDS: Pantoprazole Sodium 40 MG/10 ML VIAL IVPUSH (05:09)
[2022-11-23 07:30] LABS: Hematocrit 23.1 % (42.0-52.0); Hemoglobin 8.2 g/dl (14.0-18.0); Mean Corpuscular HGB Conc 35.5 g/dl (31.0-36.0); Mean Corpuscular Hemoglobin 35.8 pg (27.0-33.0); Mean Corpuscular Volume 100.9 fL (80.0-98.0); Mean Platelet Volume 9.3 fL (9.4-12.4); Red Blood Count 2.29 X10*6/uL (4.60-5.80); Red Cell Distribution Width 13.3 % (11.0-16.0); White Blood Count 5.4 X10*3/uL (4.8-10.8)
[2022-11-23 07:32] LABS: Platelet Count 46 X10*3/uL (160-400)
[2022-11-23 07:55] VITALS: BP 110/58; PULSE 79; RESP 20; TEMP 36.2; O2SAT 97
[2022-11-23 11:20] VITALS: BP 117/67; PULSE 85; RESP 20; TEMP 36.2; O2SAT 98
--- NOTE | 2022-11-23 12:31 | PM.EVENT ---
Event Note Date of Service: 11/23/22 Event Note: no vomiting last bm yest, black but formed vss abd soft, nt hct down somewhat but no bleeding seems stable for d/c advised to avoid alcohol, tob, nsaids f/u in office Time Spent With Patient Time: Total time managing care of this patient today ____ minutes.
--- NOTE | 2022-11-23 12:45 | PM.DS ---
DS: Providers Provider Date of Service: 11/23/22 Date of admission: 11/21/22 00:47 Primary care physician: Dalton Pisano MD Consults: 11/21/22 00:37 Consult to Gastroenterology Routine Consulting Provider: Jeromy Rodriguez Reason for consultation: Gi bleed Has provider been notified: Yes DS: Diagnosis Discharge Diagnosis (1) Acute upper GI bleed: Status: Acute (2) Gastric ulcer: Status: Acute (3) Liver cirrhosis: Status: Acute DS: Summary Hospital Course Hospital Course: Admission note HPI ?57-year-old male with past medical history of hypertension, alcohol? abuse daily, presents to the hospital with complaints of coffee-ground emesis.? Patient reports having multiple episodes of recurrent coffee-ground emesis.? Having no abdominal pain, no chest pain, no trauma, no nausea, no diarrhea, did developed tarry black stools? eventually, but reports no other acute complaint.? Denies any shortness of breath, no urinary symptoms and no lower extremity edema.? ? Denies any previous similar episode.? Reports taking ibuprofen 800 every other day for back pain for the past 4-5 months.? On arrival to the ED patient found to have a heart rate of 137 otherwise stable Labs are significant for WBC count of 13.3, hemoglobin of 12.1 that dropped to 10.8 and 29.7 after 6 hours, INR of 1.3, magnesium of 1.4, total bili of 4.4, direct bili of 1.7, AST of 50, abdomen pelvic CT shows? evidence of cirrhotic changes, splenomegaly and small paraesophageal varicosities, suggesting underlying hypertension, NG tube to placed, GI consult, patient will be admitted for further management Hospital course The patient was admitted for evaluation of acute blood loss anemia due to hematemesis. treated primarly with PPI IV, Octerotide and IVF. seen by GI dr Rodriguez who did an upper endoscopy showing an evidence of multiple non-bleeding gastric ulcers. no recurrence of bleeding inpatient. hemoglobin dropped but did not need blood transfusion. tolerated advancing diet with a plan to follow with GI as outpatient. Had hx of alcoholic cirrhosis. reported etoh abstinence. kept on CIWA monitring with no signs of withdrawal. Avoid Alcohol, NSAIDs pain medications and smoking Continue Omeprazole twice daily To follow with dr Rodriguez as outpatient Time Spent with Patient Time attestation: Total time managing care of this patient today ____ minutes. Discharge coordination time: Greater than 30 minutes Quality: Safe Use of Opioids Does Pt have an Active Cancer Diagnosis on the Problem List?: No Quality: Stroke Does the patient have a stroke diagnosis?: No Physical Exam Vital Signs: Vital Signs: Last Vital Signs Temp 97.1 F 11/23/22 11:20 Pulse 85 11/23/22 11:20 Resp 20 11/23/22 11:20 BP 117/67 11/23/22 11:20 Pulse Ox 98 11/23/22 11:20 O2 Del Method Room Air 11/23/22 11:20 BMI result Body Mass Index 38.1 Const: Other: Constitutional : Awake, interactive, not in distress Neck : Normal inspection, Supple Cardiovascular : RRR, no JVP, no lower extremity edema Respiratory : good bilateral air entry, no crackles, wheezes or rhonchi Gastrointestinal: soft, lax, Normal bowel sounds, Non tender Skin : Warm, Dry Neurological : Alert & oriented x3, No focal deficit DS: Data Data Completed and Pending Pending studies at discharge: Pending at discharge 11/21/22 14:33 Surgical [PTH] Routine Labs on day of discharge: Laboratory Results - last 24 hr 11/23/22 07:10 WBC 5.4 RBC 2.29 L Hgb 8.2 L Hct 23.1 L MCV 100.9 H MCH 35.8 H MCHC 35.5 RDW 13.3 Plt Count 46 L D MPV 9.3 L Absolute Nucleated RBC 0.000 Nucleated RBC % (auto) 0.[address] scan - abdomen: Radiologist's impression: ITS Impressions Abdomen/Pelvis CT 11/20/22 22:29 IMPRESSION: Nodular contour to the liver suggesting underlying fibrotic/cirrhotic changes. There is splenomegaly and small paraesophageal varicosities suggesting underlying portal hypertension. No acute intra-abdominal process seen. There is mild fatty replacement in the colonic wall more so in the ascending colon. This could represent sequela of prior inflammatory change but I do not appreciate any abnormal enhancement to suggest an acute inflammatory process. Discharge Plan Discharge Anticipated Discharge Date/Time: 11/23/22 12:42 Patient Disposition: Home, Self-Care Discharge Diagnosis: Acute gastrointestinal bleeding Referrals: Po,Dalton Shultz MD [Primary Care Provider] - 1 Week Discharge Medications: New omeprazole 40 mg capsule,delayed release(DR/EC) 40 mg PO BID Qty: 60 0RF Continued sildenafil [Viagra] 100 mg tablet 100 mg PO DAILY PRN (Reason: sexual activity) Qty: 14 12RF Rx Instructions: administer 30 minutes to 4 hours before activity lisinopril-hydrochlorothiazide 20-25 mg tablet 1 tab PO DAILY 90 Days Qty: 90 1RF Discharge Orders: Discharge Order (Routine); Ordered 11/23/22 Ordered By: Delfino Rivera Diet: Advance to usual diet Activity on Discharge: As tolerated Stand Alone Forms: Patient Portal Discharge page Care Plan Goals: Read below Health Concerns: Read below Plan of Treatment: Read below Assessment: You were admitted to the hospital for evaluation of vomiting blood. seen by GI who did urgent endoscopy showing evidence of multiple gastric ulcers with no active bleeding. you were treated with IV Pantoprazole with good response as you were able to tolerate diet. Avoid Alcohol, NSAIDs pain medications and smoking Continue Omeprazole twice daily To follow with dr Rodriguez as outpatient Discharge Date/Time: 11/23/22 13:35
--- NOTE | 2022-11-23 13:16 | MHC.CM.PN ---
PT WILL DC HOME TODAY WITH NO SERVICES S/O TO TRANSPORT
--- NOTE | 2022-11-23 13:34 | PC.NURSE ---
pt A&O, vitals within parameters, with at bedside - discharge instructions given. both verbalize understanding. IV out. ambulated with to front of hospital
== END 2022-11-23 13:35 | disposition home or self-care (01) | DRG 377 ==
LOC: HO.ED 23:29 → HO.EDOVER 11-21 00:52 → HO.IMC 11-21 16:31
PROVIDERS: Internal Medicine; Internal Medicine Gastroenterology; Physician Assistant; Admitting Provider Internal Medicine; Emergency Provider Emergency Medicine; PCP Internal Medicine; Visit Provider Student in an Organized Health Care Education/Training Program
PROC: 0DB78ZX Excision of Stomach, Pylorus, Via Natural or Artificial Opening Endoscopic, Diagnostic (ICD-10-PCS; principal; 2022-11-21 12:10)
DX: K25.4 Chronic or unspecified gastric ulcer with hemorrhage (principal); I85.11 Secondary esophageal varices with bleeding; D62 Acute posthemorrhagic anemia; R04.2 Hemoptysis; K76.6 Portal hypertension; K70.30 Alcoholic cirrhosis of liver without ascites; F10.20 Alcohol dependence, uncomplicated; T39.315A Adverse effect of propionic acid derivatives, initial encounter; E66.9 Obesity, unspecified; Z68.38 Body mass index [BMI] 38.0-38.9, adult; K31.89 Other diseases of stomach and duodenum; E83.42 Hypomagnesemia; F17.210 Nicotine dependence, cigarettes, uncomplicated; Z71.6 Tobacco abuse counseling; Z20.822 Contact with and (suspected) exposure to COVID-19; Z88.6 Allergy status to analgesic agent; Z79.899 Other long term (current) drug therapy
CPT/HCPCS: 36415; 74177; 80048; 80053; 80076; 80307; 82272; 83690; 83735; 85014; 85018; 85025; 85027; 85610; 85730; 86704; 86706; 86709; 86803; 87340; 87635; 88305; 88342; 99285; J2250; J2354; J2405; J3475; Q9967

== ENCOUNTER 2022-11-28 09:25 | Outpatient (REF) | payer OTHER, SELFPAY ==
[2022-11-28 09:44] LABS: MANUAL DIFF FLAG NO
[2022-11-28 10:03] LABS: Basophils Absolute Auto 0.1 X10*3/uL (0.0-0.2); Basophils Percent Auto 1.2 % (0-2); Eosinophils Absolute Auto 0.1 X10*3/uL (0.0-0.4); Eosinophils Percent Auto 2.5 % (0-4); Hematocrit 26.1 % (42.0-52.0); Imm Gran Abs Auto 0.04 X10*3/uL (0.00-0.03); Imm Gran Pct Auto 0.8 % (0.0-0.4); Lymphocytes Absolute Auto 1.2 X10*3/uL (1.2-4.9); Lymphocytes Percent Auto 23.3 % (20-40); Mean Corpuscular HGB Conc 34.5 g/dl (31.0-36.0); Mean Corpuscular Hemoglobin 35.4 pg (27.0-33.0); Mean Corpuscular Volume 102.8 fL (80.0-98.0); Mean Platelet Volume 9.9 fL (9.4-12.4); Monocytes Absolute Auto 0.7 X10*3/uL (0.1-1.2); Neutrophils Percent Auto 59.2 % (45-73); Red Blood Count 2.54 X10*6/uL (4.60-5.80); Red Cell Distribution Width 13.7 % (11.0-16.0); White Blood Count 5.1 X10*3/uL (4.8-10.8)
[2022-11-28 10:06] LABS: Platelet Count 76 X10*3/uL (160-400)
[2022-11-28 12:08] LABS: Alanine Aminotransferase 39 U/L (0-40); Albumin Level 2.8 g/dL (3.5-5.0); Alkaline Phosphatase 94 U/L (39-117); Anion Gap 8 (12-20); Aspartate Amino Transferase 51 U/L (5-37); Bilirubin Total 1.7 mg/dL (0.0-1.0); Blood Urea Nitrogen 14 mg/dL (9-16); Carbon Dioxide 26 mmol/L (22-29); Chloride 107 mmol/L (96-108); Estimated Glomerular Filt Rate > 60; Glucose Random 143 mg/dL (60-115); Phosphorus 1.9 mg/dL (2.7-4.5); Potassium 4.3 mmol/L (3.3-5.1); Sodium 137 mmol/L (135-145); Total Protein 5.3 g/dL (6.5-8.0)
== END 2022-11-28 09:26 | disposition home or self-care (01) ==
LOC: HO.LAB 09:25
PROVIDERS: PCP Internal Medicine; Visit Provider Nurse Practitioner Family
DX: Z13.0 Encounter for screening for diseases of the blood and blood-forming organs and certain disorders involving the immune mechanism (principal); D64.9 Anemia, unspecified; R25.2 Cramp and spasm
CPT/HCPCS: 36415; 80053; 83735; 84100; 85025

== ENCOUNTER 2022-12-13 15:20 | Outpatient (REF) | payer OTHER, SELFPAY ==
[2022-12-13 16:22] LABS: Alanine Aminotransferase 32 U/L (0-40); Alkaline Phosphatase 91 U/L (39-117); Anion Gap 11 (12-20); Aspartate Amino Transferase 37 U/L (5-37); Bilirubin Total 1.3 mg/dL (0.0-1.0); Blood Urea Nitrogen 15 mg/dL (9-16); Calcium 8.4 mg/dL (8.4-10.2); Carbon Dioxide 24 mmol/L (22-29); Chloride 107 mmol/L (96-108); Estimated Glomerular Filt Rate > 60; Glucose Random 132 mg/dL (60-115); Phosphorus 2.9 mg/dL (2.7-4.5); Potassium 4.1 mmol/L (3.3-5.1); Sodium 138 mmol/L (135-145); Total Protein 5.9 g/dL (6.5-8.0)
== END 2022-12-13 15:21 | disposition home or self-care (01) ==
LOC: HO.LAB 15:20
PROVIDERS: PCP Internal Medicine; Visit Provider Nurse Practitioner Family
DX: E83.51 Hypocalcemia (principal); E83.39 Other disorders of phosphorus metabolism
CPT/HCPCS: 36415; 80053; 84100

== ENCOUNTER 2023-01-09 10:08 | Outpatient (REF) | payer OTHER, SELFPAY ==
[2023-01-09 10:37] LABS: MANUAL DIFF FLAG NO
[2023-01-09 10:43] LABS: Basophils Absolute Auto 0.1 X10*3/uL (0.0-0.2); Basophils Percent Auto 1.2 % (0-2); Eosinophils Absolute Auto 0.1 X10*3/uL (0.0-0.4); Eosinophils Percent Auto 2.7 % (0-4); Hematocrit 33.7 % (42.0-52.0); Hemoglobin 11.4 g/dl (14.0-18.0); Imm Gran Abs Auto 0.01 X10*3/uL (0.00-0.03); Imm Gran Pct Auto 0.2 % (0.0-0.4); Lymphocytes Absolute Auto 1.3 X10*3/uL (1.2-4.9); Lymphocytes Percent Auto 30.4 % (20-40); Mean Corpuscular HGB Conc 33.8 g/dl (31.0-36.0); Mean Corpuscular Hemoglobin 31.8 pg (27.0-33.0); Mean Corpuscular Volume 94.1 fL (80.0-98.0); Mean Platelet Volume 9.4 fL (9.4-12.4); Monocytes Absolute Auto 0.5 X10*3/uL (0.1-1.2); Monocytes Percent Auto 10.9 % (2-11); Neutrophils Absolute Auto 2.3 x10*3/uL (2.0-8.3); Neutrophils Percent Auto 54.6 % (45-73); Red Blood Count 3.58 X10*6/uL (4.60-5.80); Red Cell Distribution Width 12.9 % (11.0-16.0); White Blood Count 4.1 X10*3/uL (4.8-10.8)
[2023-01-09 10:47] LABS: Platelet Count 52 X10*3/uL (160-400)
[2023-01-09 11:04] LABS: INTERNATIONAL NORM RATIO 1.1 (0.9-1.1); Prothrombin Time 13.1 SEC (10.0-13.1)
[2023-01-09 12:22] LABS: Alanine Aminotransferase 21 U/L (0-40); Albumin Level 3.2 g/dL (3.5-5.0); Alkaline Phosphatase 92 U/L (39-117); Anion Gap 14 (12-20); Aspartate Amino Transferase 43 U/L (5-37); Bilirubin Direct 0.4 mg/dL (0.0-0.5); Blood Urea Nitrogen 14 mg/dL (9-16); Calcium 8.9 mg/dL (8.4-10.2); Carbon Dioxide 23 mmol/L (22-29); Chloride 103 mmol/L (96-108); Estimated Glomerular Filt Rate > 60; Glucose Random 101 mg/dL (60-115); Iron 39 mcg/dL (45-160); Percent Iron Saturation 14 % (15-50); Sodium 136 mmol/L (135-145); Total Iron Binding Capacity 287 mcg/dL (228-428); Total Protein 6.9 g/dL (6.5-8.0); Unsaturated Iron Binding 248 ug/dL
[2023-01-09 12:29] LABS: Ferritin 63 ng/mL (20-250)
[2023-01-09 12:30] LABS: Folate 8.4 ng/mL (> or = 4.0); Vitamin B12 676 pg/mL (200-900)
[2023-01-10 04:39] LABS: Hepatitis A Antibody IgG REACTIVE (Nonreactive); ~Hepatitis A Antibody IgG 10.39 S/CO (0.00-0.99)
[2023-01-10 04:47] LABS: HBS Num1 0.19 mIU/mL (0-7.99); HBc Num1 0.09 S/CO (0.00-0.79); HBsAGNum1 0.28 S/CO (0.00-0.99); Hepatitis B Core Antibody Nonreactive (Nonreactive); Hepatitis B Surface Antigen Negative (Negative); ~HepC Num1 0.08 S/CO (0.00-0.79); ~Hepatitis B Surface Antibody NONREACTIVE (Nonreactive); ~Hepatitis C Antibody Nonreactive (Nonreactive)
[2023-01-11 11:53] LABS: Alpha Fetoprotein 3.9 ng/mL (<6.1)
== END 2023-01-09 10:09 | disposition home or self-care (01) ==
LOC: HO.10HDL 10:08
PROVIDERS: Visit Provider Internal Medicine
DX: K70.30 Alcoholic cirrhosis of liver without ascites (principal); D64.9 Anemia, unspecified
CPT/HCPCS: 36415; 80053; 82105; 82248; 82607; 82728; 82746; 83540; 85025; 85610; 86704; 86706; 86708; 86803; 87340

== ENCOUNTER 2023-03-09 08:44 | Day surgery (SDC) | payer OTHER, SELFPAY ==
--- NOTE | 2023-03-08 10:03 | P.CONAN_ITS ---
Documented by User: Yue Shelley NP 03/08/23 10:08 HPI - Anesthesia Eval Consult details Narrative: 57yo M for Upper Endoscopy and Colonoscopy s/p EGD 11/2022 with MAC Hx ETOH cirrhosis, nonbleeding varices by EGD 11/2022. Continues daily [place] [facility] [place] [facility] Active Problems Active Problems: All Active Problems (Updated 12/01/22 @ 00:34 by Background Daemon) Cramping of hands (Acute) Anemia (Acute) Tubular adenoma of colon (Acute) Right flank pain (Acute) Bicipital tendinitis of right shoulder (Acute) Annual physical exam (Acute) Multiple pigmented nevi (Acute) Erectile dysfunction (Acute) Hypertension (Acute) Obesity (BMI 30-39.9) (Acute) Past Medical History Medical History Erectile dysfunction Fractured coccyx Hypertension Lumbar stress fracture Obesity (BMI 30-39.9) Tubular adenoma of colon Family History Family History Father No problems noted. Mother No problems noted. Brother Alcohol abuse Brother CVA (cerebral vascular accident) Family history of problems with anesthesia: No Surgical History Surgical History No pertinent past surgical history History of Problems with Anesthesia: No Social History Social History Household Members: Significant Other Housing: House Do you presently have visiting nurse or other home services: No Alcohol intake: current Alcohol intake frequency: 3 or more drinks per day Alcohol type: beer and hard liquor Patient Tobacco Use Status: Current everyday Tobacco user Tobacco use type: Cigarette Cigarette Packs Per Day: 0.5 Cigarettes Per Day: 10.0 Years Smoked: stopped 2015 but does cigar e-Cigarette/Vaping Use: Never Used Second Hand Smoke Exposure: No service: No Current occupational status: employed Cognitive needs: No Hearing needs: No Vision needs: Yes Meds Allergies Allergy/AdvReac Type Severity Reaction Status Date / Time NSAIDS (Non-Steroidal Allergy Unknown Verified 11/28/22 08:52 Anti-Inflamma Exam Exam Date and Time: March 08, 2023 1003 Pertinent Lab Results Pertinent Lab Results: Laboratory Tests 01/09/23 10:19 Sodium 136 Potassium 4.0 Chloride 103 Carbon Dioxide 23 BUN 14 Creatinine 0.87 Laboratory Tests 01/09/23 01/09/23 10:19 10:19 PT 13.1 INR 1.1 Iron 39 L TIBC 287 % Saturation 14 L Unsat Iron Binding 248 Ferritin 63 Total Bilirubin 1.0 Direct Bilirubin 0.4 AST 43 H ALT 21 Alkaline Phosphatase 92 Total Protein 6.9 Albumin 3.2 L Assessment and Plan Assessment Anesthesia Assessment: Chart Reviewed Final Anesthetic Review Family History of Problems with Anesthesia: No History of Problems with Anesthesia: No Documented by User: Matt Nicholas MD 03/09/23 08:40 PMFSH Past Medical History Medical History Erectile dysfunction Fractured coccyx Hypertension Lumbar stress fracture Obesity (BMI 30-39.9) Tubular adenoma of colon Family History Family History Father No problems noted. Mother No problems noted. Brother Alcohol abuse Brother CVA (cerebral vascular accident) Surgical History Surgical History No pertinent past surgical history Social History Social History Household Members: Significant Other Housing: House Do you presently have visiting nurse or other home services: No Alcohol intake: current Alcohol intake frequency: 3 or more drinks per day Alcohol type: beer and hard liquor Patient Tobacco Use Status: Current everyday Tobacco user Tobacco use type: Cigarette Cigarette Packs Per Day: 0.5 Cigarettes Per Day: 10.0 Years Smoked: stopped 2015 but does cigar e-Cigarette/Vaping Use: Never Used Second Hand Smoke Exposure: No service: No Current occupational status: employed Cognitive needs: No Hearing needs: No Vision needs: Yes Meds Allergies Allergy/AdvReac Type Severity Reaction Status Date / Time NSAIDS (Non-Steroidal Allergy Unknown Verified 11/28/22 08:52 Anti-Inflamma Exam Airway Mallampati Class: II TM Dist: >3cm Neck ROM: Limited Heart: rrr Lungs: cta Assessment and Plan Final Anesthetic Review NPO: Yes ASA Class: III Final Preanesthetic Review: No Changes in Pt Med Stat, Meds/Allgs Chart Reviewed, Consent Obtained/Reviewed and Anes Risks/Benef Reviewed Patient Risk: Intermediate Procedure Risk: Intermediate Anesthetic Plan Anesthetic Plan: MAC: and Agree w/ Assess. and Plan Disposition: Standard PACU
[2023-03-09 09:04] VITALS: BP 147/85; PULSE 100; RESP 18; TEMP 36.7; O2SAT 97; BMI 36.8
[2023-03-09] MEDS: Lactated Ringers 1,000 ML 100 ML IVCONT (09:18)
[2023-03-09 10:33] VITALS: BP 91/57; PULSE 92; RESP 16; TEMP 36.2; O2SAT 95
--- NOTE | 2023-03-09 10:42 | PC.NURSE ---
late entry: dr. lang reviewed December 2022 labwork, declined ordered cbc.
--- NOTE | 2023-03-09 10:43 | P.BOP_ITS ---
Brief Operative Note Date of Service: 03/09/23 Pre-op diagnosis: Hx of gastric ulcers, Screening Post-op diagnosis: other (Esophageal varices, Gastritis, Diverticulosis) Procedure: EGD, Colonoscopy to cecum Surgeon: Hector Alcantar Anesthesia: MAC Was an Radiologic Technology Teacher used for this Procedure?: No Estimated blood loss (mL): 0 Pathology: none sent Condition: stable Disposition: PACU
[2023-03-09 10:48] VITALS: BP 107/69; PULSE 98; RESP 16; O2SAT 97
[2023-03-09 11:03] VITALS: BP 125/67; PULSE 88; RESP 18; TEMP 36.6; O2SAT 98
--- NOTE | 2023-03-09 11:53 | OP_ITS ---
DATE OF SERVICE: 03/09/2023 SURGEON: Hector Alcantar MD INDICATIONS: The patient presents for evaluation of previous history of gastric ulcers, personal history of tubular adenoma of the colon, and colorectal cancer screening. Full consent has been obtained from him for both procedures, including risks of bleeding and perforation. PREOPERATIVE DIAGNOSIS: History of gastric ulcers, personal history of tubular adenoma of the colon, colorectal cancer screening. POSTOPERATIVE DIAGNOSIS: PROCEDURE PERFORMED: ESTIMATED BLOOD LOSS: COMPLICATIONS: ANESTHESIA: Monitored anesthesia care. ASSISTANTS: SPECIMENS: PROCEDURE: Esophagogastroduodenoscopy, and colonoscopy to the cecum. POSTOPERATIVE DIAGNOSES: History of gastric ulcers, personal history of tubular adenoma of the colon, colorectal cancer screening, nonbleeding grade 1-2 esophageal varices, hiatal hernia, mild gastritis, diverticulosis, internal hemorrhoids. DESCRIPTION OF PROCEDURE: The patient was placed in the left lateral decubitus position. The Olympus video gastroscope was passed in the posterior oropharynx and upper esophagus under direct vision. The scope was passed slowly to the distal esophagus. The gastroesophageal junction appeared at 37 cm. There was no sign of any esophagitis nor Mac's esophagus. There were nonbleeding grade 1-2 esophageal varices, but without any stigmata of recent nor active bleeding. The scope entered the stomach, there was a small hiatal hernia. The scope was advanced to the pylorus and the duodenum was cannulated to the descending portion. The duodenum including the bulb appeared normal without mass or ulceration. The scope was withdrawn back in the stomach. The gastric antrum had some areas of erythema and edema, but no erosions or ulceration. The scope was retroflexed visualizing the proximal stomach carefully which appeared normal, without any sign of varices, mass, nor ulceration. The scope was straightened and withdrawn back to the esophagus. The esophageal mucosa otherwise appeared normal. The scope was withdrawn from the patient. He was turned around for the colonoscopy. The digital rectal exam revealed no abnormalities. The Olympus video pediatric colonoscope was entered into the rectum advanced easily to the cecum. Once in the cecum, I did identify normal-appearing cecal pouch with appendiceal orifice and a normal-appearing ileocecal valve. The entire cecum and ileocecal valve appeared normal. There was transillumination of light deep in the right lower quadrant. The scope was then slowly withdrawn assessing all mucosal surfaces carefully. Preparation was excellent, although did require some irrigation and suctioning to remove some liquid stool. I did not visualize any sign of polyps, colitis, nor angiodysplasia. There was a mild amount of sigmoid diverticulosis. In the rectum, scope was retroflexed visualizing internal hemorrhoids, but no other pathology. The rectal mucosa appeared normal. The scope was straightened and withdrawn from the patient. He tolerated both procedures well and was returned to the recovery area in stable condition. IMPRESSION: 1. Nonbleeding esophageal varices. 2. Hiatal hernia. 3. Mild gastritis. 4. Diverticulosis. 5. Internal hemorrhoids. PLAN: The patient was advised to continue his omeprazole on a long-term basis given his previous history of ulcers with GI bleeding, as well as his unfortunate use of ongoing alcohol abuse. I would recommend a repeat colonoscopy in 5 years. He was advised to see me again in several months for followup of his chronic liver disease. He was advised to stay off all aspirin and NSAIDs long-term as well. He again was advised to eliminate alcohol from his lifestyle long-term. This has been discussed with his . MD MAGUE Perez/SHAN / [id number] M[facility]bert
== END 2023-03-09 11:25 | disposition home or self-care (01) ==
PROVIDERS: PCP Internal Medicine; Visit Provider Internal Medicine
PROC: (CPT 45378; principal; 2023-03-09 09:50)
DX: Z12.11 Encounter for screening for malignant neoplasm of colon (principal); Z86.010 Personal history of colon polyps; K57.30 Diverticulosis of large intestine without perforation or abscess without bleeding; K64.8 Other hemorrhoids; I85.00 Esophageal varices without bleeding; Z87.11 Personal history of peptic ulcer disease; K29.70 Gastritis, unspecified, without bleeding; K44.9 Diaphragmatic hernia without obstruction or gangrene; K70.30 Alcoholic cirrhosis of liver without ascites; K76.6 Portal hypertension; D64.9 Anemia, unspecified; I10 Essential (primary) hypertension; Z79.899 Other long term (current) drug therapy; F10.10 Alcohol abuse, uncomplicated; F17.210 Nicotine dependence, cigarettes, uncomplicated
CPT/HCPCS: 45378; 43235

== ENCOUNTER 2023-06-08 15:51 | Outpatient (AMB) | payer MEDICARE, SELFPAY ==
[2023-06-08 15:57] VITALS: BP 140/64; PULSE 94; O2SAT 100; BMI 39.5
--- NOTE | 2023-06-08 15:57 | A.OFFPC_ITS ---
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: No Blind Cleaner: Not Required per policy Accompanied by: Self / Same As Patient Allergies NSAIDS (Non-Steroidal Anti-Inflamma Allergy (Verified 06/08/23 15:58) Unknown Medication List - Last Reconciled 06/08/23 by Dalton Pisano MD lisinopril-hydrochlorothiazide 20-25 mg 1 tab PO DAILY 90 days omeprazole 40 mg PO BID sildenafil (Viagra) 100 mg PO DAILY PRN Tobacco use date assessed: 08/11/22 Dental Screening Dental Screen Date: 06/08/23 Did you have a dental visit in the last 12 months?: Yes Did you have a dental problem in the last 6 months where you did not have access to dental care?: No Was dental information given to patient?: Patient has dentist HPI physical 2 HPI0 Details 57-year-old obese male with a history of gastric ulcer liver cirrhosis hypertension last seen in November 2022. Patient is here for physical exam. Patient just had EGD and colonoscopy done February 2023 noted nonbleeding esophageal varices, hiatal hernia mild gastritis diverticulosis and internal hemorrhoids on omeprazole long-term with a history of GI ulcers before and alcohol abuse. Advised repeat colonoscopy in 5 years. Patient was seen by the nurse practitioner in November 2022 as per hospital discharge liver cirrhosis anemia due to hematemesis treated with PPI had octreotide and did an endoscopy showing multiple nonbleeding gastric ulcers. Blood count on discharge 8.2.1 [facility] Medical History (Updated 06/08/23 @ 17:02 by Dalton Pisano MD) Gastric ulcer Liver cirrhosis Lumbar stress fracture Fractured coccyx Tubular adenoma of colon Erectile dysfunction Hypertension Obesity (BMI 30-39.9) Surgical History No pertinent past surgical history Family History Father No problems noted. Mother No problems noted. Brother Alcohol abuse Brother CVA (cerebral vascular accident) Social History (Updated 06/08/23 @ 16:45 by Dalton Pisano MD) Household Members: Significant Other Housing: House Do you presently have visiting nurse or other home services: No Alcohol intake: current Alcohol intake frequency: 3 or more drinks per day Alcohol type: beer and hard liquor Patient Tobacco Use Status: Current everyday Tobacco user Tobacco use type: Cigarette Cigarette Packs Per Day: 0.5 Cigarettes Per Day: 6 Years Smoked: 4 cigaretttes a day e-Cigarette/Vaping Use: Never Used Second Hand Smoke Exposure: No service: No Current occupational status: employed Cognitive needs: No Hearing needs: No Vision needs: Yes Questionnaire PHQ-9 Over the last 2 weeks, how often have you been bothered by any of the following problems? 1. Little interest or pleasure in doing things: not at all 2. Feeling down, depressed, or hopeless: not at all 3. Trouble falling or staying asleep, or sleeping too much: not at all 4. Feeling tired or having little energy: not at all 5. Poor appetite or overeating: not at all 6. Feeling bad about yourself - or that you are a failure or have let yourself or your family down: not at all 7. Trouble concentrating on things, such as reading the newspaper or watching television: not at all 8. Moving or speaking so slowly that other people could have noticed. Or the opposite - being so fidgety or restless that you have been moving around a lot more than usual: not at all 9. Thoughts that you would be better off or of hurting yourself in some way: not at all Total score: 0 Depression Screening Interpretation: Negative Depression Screening Done: Yes Source: Developed by Drs. Hector Gamez, Kelly Bonilla, Fausto Recinos and colleagues, with an educational polly from [employer]. Thrive Questionnaire Date Thrive assessed: 08/11/22 AUDIT C Alcohol Use Questionnaire (AUDIT-C) 1. How often do you have a drink containing alcohol?: 4 or more times a week 2. How many drinks containing alcohol do you have on a typical day when you are drinking?: 3 or 4 3. How often do you have six or more drinks on one occasion?: Never Total Score: 5 GIULIANA-7 AMB Questionnaire GIULIANA-7 Date GIULIANA - 7 assessed: 08/11/22 Source: Developed by Drs. Hector Gamez, Kelly Bonilla, Fausto Recinos and colleagues, with an educational polly from [employer]. Review of Systems Const Denies poor appetite and Denies weakness Eyes Denies no additional complaints ENT Reports Normal hearing present, Denies dizziness, Denies nasal congestion, Denies tinnitus and Denies sore throat Card Denies chest pain, Denies syncope, Denies rapid heart rate and Denies dyspnea Resp Denies cough and Denies dyspnea GI Denies change in stool character, Reports constipation, Denies diarrhea, Denies nausea and Denies vomiting Denies dysuria and Denies urinary frequency Neuro Reports Normal hearing present, Denies confusion, Denies dizziness, Denies syncope and Denies weakness Psych Denies confusion Physical exam (Primary Care) Vital Signs: Last Vital Signs Pulse 94 06/08/23 15:57 BP 140/64 H 06/08/23 15:57 Pulse Ox 100 06/08/23 15:57 Oxygen Delivery Method Room Air 06/08/23 15:57 BMI result Body Mass Index 39.5 Tobacco/Smoking Status: Tobacco use Status Tobacco use date assessed 08/11/22 06/08/23 15:59 Patient Tobacco Use Status Current everyday Tobacco 06/08/23 15:59 Tobacco use type Cigarette 06/08/23 15:59 e-Cigarette/Vaping Use Never Used 06/08/23 15:59 PHQ-9: PHQ-9 Score PHQ-9: Total score 0 06/08/23 15:59 Depression Screening Interpretation: Negative Thrive Assessment: Date of Thrive Assessment Date Thrive assessed 08/11/22 06/08/23 15:59 Const General: No confusion Orientation/consciousness: No confusion HENMT Head: Yes normocephalic Ears: external ears normal and TM's normal bilaterally Face and sinus: Yes normal facial exam Mouth: moist mucous membranes Throat: Yes tonsils normal Eyes Conjunctivae: conjunctivae normal Pupils: Equal, round and reactive pupils present and Pupil accommodation reflex normal Direct Ophthalmoscopy: normal light reflex Neck Neck: No lymphadenopathy Thyroid: Thyroid normal Chest Chest palpation & inspection: normal inspection of the chest Resp Effort & Inspection: normal respiratory effort and no audible wheezes Auscultation: clear to auscultation bilaterally, no crackles, no wheezes and lung sounds not diminished Cardio Rate: regular rate Rhythm: regular rhythm Peripheral pulses: radial pulses present and dorsalis pedis present GI Other: Had colonoscopy Palpation (GI): no masses Auscultation: normal bowel sounds and normoactive bowel sounds Rectal Exam - Male: Yes deferred Other: Declined Skin General skin exam: no rashes or lesions noted Rashes: no rashes Full body images: 2 1. 3 x 5 cm mildly erythematous bordered rash with central normal color of skin Neuro General: No confusion Cranial nerves: Yes Equal, round and reactive pupils present and Yes Normal hearing present Cognition (Neuro): normal cognition Gait exam (Neuro): Normal gait present Motor exam (neuro): 5/5 motor strength present throughout Deep tendon reflexes (DTR's): Right brachioradialis reflex intensity grade: 2+, Left brachioradialis reflex intensity grade: 2+, Right patellar reflex intensity grade: 2+ and Left patellar reflex intensity grade: 2+ Extrem General: No edema Assessment and Plan Assessment & Plan (1) Annual physical exam: Code(s): Z00.00 - Encounter for general adult medical examination without abnormal findings (2) Obesity (BMI 30-39.9): Code(s): E66.9 - Obesity, unspecified Plan: Diet and exercise (3) Gastric ulcer: Code(s): K25.9 - Gastric ulcer, unspecified as acute or chronic, without hemorrhage or perforation Plan: Stop alcohol continue with omeprazole 40 mg twice a day (4) Alcohol abuse: Code(s): F10.10 - Alcohol abuse, uncomplicated Plan: Stop alcohol ! (5) Anemia: Code(s): D64.9 - Anemia, unspecified Plan: Continue to monitor as patient had gastric ulcer. (6) Hypertension: Code(s): I10 - Essential (primary) hypertension Qualifiers: Hypertension type: essential hypertension Qualified Code(s): I10 - Essential (primary) hypertension Plan: Continue with blood pressure medication. Decrease salt intake and exercise patient on lisinopril hydrochlorothiazide (7) Liver cirrhosis: Code(s): K74.60 - Unspecified cirrhosis of liver Plan: Patient needs to abstain from alcohol! (8) Tobacco abuse: Code(s): Z72.0 - Tobacco use Plan: Advised strongly to stop smoking ! will refer for lung cancer screen (9) Tinnitus: Code(s): H93.19 - Tinnitus, unspecified ear Plan: Declined hearing this (10) Low back pain: Code(s): M54.50 - Low back pain, unspecified Plan: X-ray requested, cannot take NSAIDs due to gastric ulcer. Will give tramadol have the does as the patient does have cirrhosis also. (11) Tinea corporis: Code(s): B35.4 - Tinea corporis Plan: Cream sent in to apply twice a day for Orders: Orders 2 XR lumbar spine 2-3V Today M54.50 - Low back pain, unspecified Comprehensive Met. Panel Today K74.60 - Unspecified cirrhosis of liver Thyroid Stimulating Hormone Today K74.60 - Unspecified cirrhosis of liver Lipid Panel Today E78.00 - Pure hypercholesterolemia, unspecified, K74.60 - Unspecified cirrhosis of liver IRON PROFILE Today K74.60 - Unspecified cirrhosis of liver Prostate Specific Antigen Scr Today K74.60 - Unspecified cirrhosis of liver Complete Blood Count Auto Diff Today K74.60 - Unspecified cirrhosis of liver Free T4 (Free Thyroxine) Today K74.60 - Unspecified cirrhosis of liver Ferritin Today K74.60 - Unspecified cirrhosis of liver Vitamin B12 and Folate Today K74.60 - Unspecified cirrhosis of liver Referrals 2 Thoracic Surgery Referral Z72.0 - Tobacco use Medications: New 2 tramadol 25 mg (1/2 x 50 mg) PO DAILY 30 days 15 tabs 0RF M54.50 - Low back pain, unspecified clotrimazole 1% 1 appl topical BID 4 weeks 45 grams 0RF B35.4 - Tinea corporis Coding Level of Care Code Est Pt Prev Care 40-64y(79545) Diagnoses Annual physical exam Z00.00 Obesity (BMI 30-39.9) E66.9 Gastric ulcer K25.9 Alcohol abuse F10.10 Anemia D64.9 Essential hypertension I10 Hypertension type: essential hypertension Liver cirrhosis K74.60 Tobacco abuse Z72.0 Tinnitus H93.19 Low back pain M54.50 Tinea corporis B35.4
[2023-06-08 16:42] VITALS: BP 120/60
== END 2023-06-08 17:06 | disposition home or self-care (01) ==
PROVIDERS: Visit Provider Internal Medicine
DX: Z00.00 Encounter for general adult medical examination without abnormal findings (principal); E66.9 Obesity, unspecified; K74.60 Unspecified cirrhosis of liver; Z68.39 Body mass index [BMI] 39.0-39.9, adult; K25.9 Gastric ulcer, unspecified as acute or chronic, without hemorrhage or perforation; I10 Essential (primary) hypertension; F10.10 Alcohol abuse, uncomplicated; D64.9 Anemia, unspecified; Z72.0 Tobacco use; H93.19 Tinnitus, unspecified ear; M54.50 Low back pain, unspecified; B35.4 Tinea corporis
CPT/HCPCS: 99396

== ENCOUNTER 2023-08-24 07:55 | Outpatient (REF) | payer BC, SELFPAY ==
--- NOTE | ~2023-08-24 | CT_ITS ---
EXAMINATION: CT CHEST SCREENING CLINICAL INFORMATION: Current smoker with 45 pack year history. COMPARISON: None available. TECHNIQUE: Multidetector volumetric CT imaging of the chest is performed without contrast using low dose technique. Additional 2D coronal and sagittal reformatted images and axial 3D maximum intensity projection (MIP) images are generated on the CT workstation. This CT examination was performed using dose optimization techniques as appropriate, variously including the following: *Automated exposure control *Adjustment of mA and/or kV according to patient size (this includes techniques or standardized protocols for targeted exams where dose is matched to indication/reason for exam; i.e. extremities or head) *Use of iterative reconstruction technique DLP: 85 mGy-cm FINDINGS: CONVEYOR SYSTEM OPERATOR: Low lung volumes LUNGS: Trachea and bronchi are patent. Centrilobular emphysema. No consolidations. 1.1 cm ill-defined posterior right upper lobe groundglass opacity adjacent to the major fissure, sagittal 8:79, axial 5:157. No suspicious lung nodules. MEDIASTINUM: Unremarkable thyroid. Nonenlarged specific mediastinal lymph nodes. No pathologic lymphadenopathy. Nonenlarged heart. No pericardial effusion. Mild atherosclerotic calcifications nonaneurysmal aorta. Nonenlarged pulmonary arteries. CORONARY ARTERY CALCIFICATION: Mild. PLEURA: There is no pleural effusion. No pleural mass or thickening. AXILLA: No lymphadenopathy. UPPER ABDOMEN: Diffuse hypodensity to the liver parenchyma. Dependent calcified stones in otherwise unremarkable gallbladder. Enlarged spleen measuring 19.1 cm. OSSEOUS STRUCTURES: Unremarkable. CT/CT lung screening IMPRESSION: No suspicious lung nodules. 1.1 cm upper lobe groundglass opacity, possibly infectious. Follow-up CT at 6 months to confirm persistence, then every 2 years until 5 years if stable. Hepatic steatosis. Splenomegaly. Cholelithiasis. ASSESSMENT: Lung-RADS category 2: Benign RECOMMENDATION: Short interval 6 month follow up low dose CT chest.
--- NOTE | ~2023-08-24 | US_ITS ---
EXAMINATION: US ABDOMEN COMPLETE CLINICAL INFORMATION: Alcoholic cirrhosis of the liver. COMPARISON: CT abdomen/pelvis 11/20/2022 TECHNIQUE: Real-time imaging of the abdominal viscera. Doppler interrogation and spectral analysis was performed. FINDINGS: PANCREAS: Obscured. ABDOMINAL AORTA: The proximal, mid, and distal segments are normal in caliber. INFERIOR VENA CAVA: Visualized portions are normal. LIVER: The liver is normal in size. Nodular surface contour. There is diffuse increased liver parenchymal echogenicity, consistent with infiltrative hepatocellular disease. No definite focal lesion is seen, but evaluation is limited due to poor sound beam penetration through the coarse echogenic liver parenchyma. There is no intrahepatic biliary duct dilatation seen. DOPPLER INTERROGATION: There is appropriate directional portal venous and hepatic venous flow. Normal hepatic arterial waveforms are identified. GALLBLADDER: The gallbladder is physiologically distended without evidence of stones, sludge, polyps, wall thickening or pericholecystic fluid. COMMON BILE DUCT: Normal in caliber measuring 0.4 cm in diameter. RIGHT KIDNEY: No hydronephrosis. No renal calculi or focal parenchymal lesions. The kidney measures 11.2 cm in maximum dimension. LEFT KIDNEY: No hydronephrosis. No renal calculi or focal parenchymal lesions. The kidney measures 12.2 cm in maximum dimension. SPLEEN: Enlarged. The spleen measures 17.0 cm in maximum dimension. FREE FLUID: None. US/US abdomen complete IMPRESSION: Hepatic cirrhosis. Splenomegaly.
--- NOTE | ~2023-08-24 | US_ITS ---
EXAMINATION: US ABDOMEN DOPPLER EVALUATION CLINICAL INFORMATION: Cirrhosis COMPARISON: CT abdomen pelvis on 11/20/2022 TECHNIQUE: Real-time Doppler evaluation of the abdominal viscera. FINDINGS: INFERIOR VENA CAVA: Visualized portions are normal. SPLEEN: Enlarged. The spleen measures 17.0 cm in maximum dimension. FREE FLUID: None. DOPPLER EVALUATION: The main, right, and left portal vein are patent with hepatopedal flow. Hepatic artery is patent with antegrade flow and appropriate waveforms. The hepatic veins are patent. The splenic vein is patent. US/US duplex arterial venous comp IMPRESSION: 1. Patent portal vein with hepatopedal flow. 2. Splenomegaly.
== END 2023-08-24 07:56 | disposition home or self-care (01) ==
LOC: HO.US 07:55
PROVIDERS: PCP Internal Medicine; Visit Provider Internal Medicine
DX: Z12.2 Encounter for screening for malignant neoplasm of respiratory organs (principal); F17.210 Nicotine dependence, cigarettes, uncomplicated; K70.30 Alcoholic cirrhosis of liver without ascites; I85.00 Esophageal varices without bleeding
CPT/HCPCS: 71271; 76700; 93975

== ENCOUNTER 2023-09-04 12:40 | Outpatient (AMB) | payer BC, SELFPAY ==
--- NOTE | 2023-09-04 12:40 | MHC.OFFVIS ---
Intake Intake Visit Reasons: LDCT SD Allergies NSAIDS (Non-Steroidal Anti-Inflamma Allergy (Verified 06/08/23 15:58) Unknown HPI HPI Comments History of Present Illness Details Omar is a pleasant 57 year old male, current smoker with a 37 PYH, currently smoking less than 1/2 pack . Patient has been smoking since age 11 for 37 years at 1 ppd. He did quit for 9 years. Admits to occasional marijuana use. Reports possible exposure to chemicals or substances like asbestos, while in the x 10 years. Denies second hand smoke exposure. Denies known family history of lung cancer. Denies personal history of cancers. Denies chest CT in last year. Admits to recent travel outside the [place], [place], [place], [place], [place] Admits testing positive for COVID. Denies receiving COVID Vaccine. Denies fever, chills, chest pain, new cough, hemoptysis or unintentional weight loss. Lung Cancer Screening Questionnaire reviewed with patient by provider. Shared Decision Making Completed. Discussed in detail with patient, the risk versus benefit of LDCT screening. Patient in agreement of proceeding with scan. REPLACED BY [facility] Medical History (Updated 08/14/23 @ 15:32 by Renetta Hopkins NP) Gastric ulcer Liver cirrhosis Lumbar stress fracture Fractured coccyx Tubular adenoma of colon Erectile dysfunction Hypertension Obesity (BMI 30-39.9) Surgical History No pertinent past surgical history Family History Father No problems noted. Mother No problems noted. Brother Alcohol abuse Brother CVA (cerebral vascular accident) Social History (Updated 09/04/23 @ 12:54 by Renetta Hopkins NP) Household Members: Significant Other Housing: House Do you presently have visiting nurse or other home services: No Alcohol intake: current Alcohol intake frequency: 3 or more drinks per day Alcohol type: beer and hard liquor Patient Tobacco Use Status: Current everyday Tobacco user Tobacco use type: Cigarette Cigarette Packs Per Day: 0.5 Cigarettes Per Day: 6 Years Smoked: 37 e-Cigarette/Vaping Use: Never Used Second Hand Smoke Exposure: No service: No Current occupational status: employed Cognitive needs: No Hearing needs: No Vision needs: Yes Assessment & Plan Assessment & Plan (1) Nicotine dependence, cigarettes, uncomplicated: Code(s): F17.210 - Nicotine dependence, cigarettes, uncomplicated Plan Shared decision-making visit completed today via telephone. This patient meets criteria for LDCT for lung cancer screening purposes and is asymptomatic. Offered smoking cessation. Patient has been scheduled for a low dose chest CT for screening purposes at [facility]. We discussed how the results will be obtained depending on CT findings. RADS 1 and RADS 2 will receive a letter with results and will follow up for annual LDCT. Patient informed they will be contacted at later date to schedule upcoming LDCT scan. RADS 3 and RADS 4 will receive a telephone call, or an office visit after reviewing case at our Lung Cancer Conference to determine when the next LDCT will be scheduled or further interventions that may be needed. Discussed importance of screening program and compliance with yearly LDCT scan as scheduled. Risks, benefits, and alternatives were discussed in detail and patient agrees to proceed. Risks discussed include but are not limited to: radiation exposure and possibility of additional intervention for benign disease. Benefits include detection of lung cancer at an early stage. A copy of today's visit and LDCT results will be sent to patient's PCP. Incidental findings on LDCT are PCP's responsibility. If there are incidental findings, our office will ensure that PCP office is aware of these findings. All questions were answered and patient is in agreement of plan. Telehealth Telehealth Location of provider rendering services: practice address Location of patient: address on file Patient Identification confirmed using: Name, : Yes Telehealth method: voice only Patient verbally consented to treatment: Yes Patient verbally consented to billing insurance company: Yes Patient informed of any privacy concerns related to visit: Yes Coding Level of Care Code Lung Cancer Screening [id number] Diagnoses Nicotine dependence, cigarettes, uncomplicated F17.210
== END 2023-09-04 13:50 ==
PROVIDERS: PCP Internal Medicine; Referring Provider Internal Medicine; Visit Provider Nurse Practitioner Family
DX: F17.210 Nicotine dependence, cigarettes, uncomplicated (principal)
CPT/HCPCS: G0296

== ENCOUNTER → 2023-09-04 12:40 | Outpatient (BNVA) | payer BC, SELFPAY | PROVIDERS: PCP Internal Medicine; Referring Provider Internal Medicine; Visit Provider Nurse Practitioner Family | DX: F17.210 Nicotine dependence, cigarettes, uncomplicated (principal) | CPT/HCPCS: G0296 ==

== ENCOUNTER 2023-09-19 11:10 | Outpatient (AMB) | payer BC, SELFPAY ==
[2023-09-19 11:22] VITALS: BP 122/72; PULSE 82; O2SAT 98; BMI 39.5
--- NOTE | 2023-09-19 11:22 | MHC.PC.OV ---
Vital Signs 09/19/23 11:22 Height 5 ft 8 in Weight 260 lb BMI 39.5 BP 122/72 Blood Pressure Location Lt brachial Position Sitting Pulse 82 Pulse Source Pulse Oximeter Pulse Oximetry (%) 98 Oxygen Delivery Method Room Air Intake Visit Reasons: Left shoulder pain Intake Note: Patient did not get on scale, gave weight stating he took it this morning at home. Allergies NSAIDS (Non-Steroidal Anti-Inflamma Allergy (Verified 09/19/23 11:22) Unknown Tobacco use date assessed: 09/19/23 Dental Screening Dental Screen Date: 09/19/23 Did you have a dental visit in the last 12 months?: Yes Did you have a dental problem in the last 6 months where you did not have access to dental care?: No Was dental information given to patient?: Patient has dentist HPI Left shoulder pain HPI Details 58-year-old obese male smoker with a history of gastric ulcer from alcohol anemia hypertension liver cirrhosis coming in for follow-up.. Last seen in May 2023. Colonoscopy is up-to-date review of the notes was seen diet pulmonary for lung cancer screening program had 1 in 08/24/2023 no suspicious lung nodules has a 1.1 cm upper lobe ground-glass opacity and advised to follow up in 6 months. Ultrasound done in August also having hepatic cirrhosis with splenomegaly. L shoulder pain 1 year pain, deny fall or trauma [facility] Medical History (Updated 09/19/23 @ 12:02 by Dalton Pisano MD) Gastric ulcer Liver cirrhosis Lumbar stress fracture Fractured coccyx Tubular adenoma of colon Erectile dysfunction Hypertension Obesity (BMI 30-39.9) Surgical History No pertinent past surgical history Family History (Updated 09/19/23 @ 11:23 by Mary Hall CMA) Father No problems noted. Mother No problems noted. Brother Alcohol abuse Brother CVA (cerebral vascular accident) Social History (Updated 09/04/23 @ 12:54 by Renetta Hopkins NP) Household Members: Significant Other Housing: House Do you presently have visiting nurse or other home services: No Alcohol intake: current Alcohol intake frequency: 3 or more drinks per day Alcohol type: beer and hard liquor Patient Tobacco Use Status: Current everyday Tobacco user Tobacco use type: Cigarette Cigarette Packs Per Day: 0.5 Cigarettes Per Day: 6 Years Smoked: 37 e-Cigarette/Vaping Use: Never Used Second Hand Smoke Exposure: No service: No Current occupational status: employed Cognitive needs: No Hearing needs: No Vision needs: Yes Questionnaire PHQ-9 Over the last 2 weeks, how often have you been bothered by any of the following problems? 1. Little interest or pleasure in doing things: not at all 2. Feeling down, depressed, or hopeless: not at all 3. Trouble falling or staying asleep, or sleeping too much: not at all 4. Feeling tired or having little energy: not at all 5. Poor appetite or overeating: not at all 6. Feeling bad about yourself - or that you are a failure or have let yourself or your family down: not at all 7. Trouble concentrating on things, such as reading the newspaper or watching television: not at all 8. Moving or speaking so slowly that other people could have noticed. Or the opposite - being so fidgety or restless that you have been moving around a lot more than usual: not at all 9. Thoughts that you would be better off or of hurting yourself in some way: not at all Total score: 0 Depression Screening Interpretation: Negative Depression Screening Done: Yes Source: Developed by Drs. Hector Gamez, Kelly Bonilla, Fausto Recinos and colleagues, with an educational polly from [employer]. Thrive Questionnaire Date Thrive assessed: 09/19/23 I am a: Patient What is your living situation today?: I have a steady place to live Within the past 12 months, did the food you bought not last and you didn't have the money to get more?: Never true Within the past 12 months, did you worry whether your food would run out before you got money to buy more?: Never true Do you have trouble paying for medicines?: No Do you have trouble getting transportation to medical appointments?: No Do you have trouble paying your heating and electricity bill?: No Do you have trouble taking care of your child, family member or friend?: No Do you have trouble with day-to-day activities such as bathing, preparing meals, shopping, managing finances, etc.?: No Are you currently unemployed and looking for a job?: No Are you interested in more education?: No Currently or been in a relationship where the following occur: no concerns reported THRIVE Score: 0 AUDIT C Alcohol Use Questionnaire (AUDIT-C) 1. How often do you have a drink containing alcohol?: 4 or more times a week 2. How many drinks containing alcohol do you have on a typical day when you are drinking?: 3 or 4 3. How often do you have six or more drinks on one occasion?: Never Total Score: 5 GIULIANA-7 AMB Questionnaire GIULIANA-7 Date GIULIANA - 7 assessed: 09/19/23 Feeling nervous, anxious, or on edge: 0 = Not at all Not being able to stop or control worryin = Not at all Worrying too much about different things: 0 = Not at all Trouble relaxin = Not at all Being so restless that it is hard to sit still: 0 = Not at all Becoming easily annoyed or irritable: 0 = Not at all Feeling afraid as if something awful might happen: 0 = Not at all Total GIULIANA-7 score (0-4 normal; 5-9 mild; 10-14 moderate; 15-21 severe): 0 Source: Developed by Drs. Hector Gamez, Kelly Bonilla, Fausto Recinos and colleagues, with an educational polly from [employer]. Physical exam (Primary Care) Vital Signs: Last Vital Signs Pulse 82 09/19/23 11:22 BP 122/72 09/19/23 11:22 Pulse Ox 98 09/19/23 11:22 Oxygen Delivery Method Room Air 09/19/23 11:22 BMI result Body Mass Index 39.5 Tobacco/Smoking Status: Tobacco use Status Tobacco use date assessed 09/19/23 09/19/23 11:24 Patient Tobacco Use Status Current everyday Tobacco 09/19/23 11:24 Tobacco use type Cigarette 09/19/23 11:24 e-Cigarette/Vaping Use Never Used 09/19/23 11:24 PHQ-9: PHQ-9 Score PHQ-9: Total score 0 09/19/23 11:57 Depression Screening Interpretation: Negative Thrive Assessment: Date of Thrive Assessment Date Thrive assessed 09/19/23 09/19/23 11:24 Currently or been in a relationship where the following occur: no concerns reported Const General: alert; No acute distress Eyes Conjunctivae: conjunctivae normal Resp Auscultation: clear to auscultation bilaterally Cardio Rate: regular rate Rhythm: regular rhythm GI Inspection: Yes normal to inspection Extrem Other: Arm elevation up to 90 degrees with pain on the lateral left shoulder. No swelling no redness. Also noted reddish border rash irregular on bilateral axilla. General: No edema Assessment and Plan Assessment & Plan (1) Alcohol abuse: Code(s): F10.10 - Alcohol abuse, uncomplicated Plan: Patient is strongly advised to abstain from alcohol (2) Hypertension: Code(s): I10 - Essential (primary) hypertension Qualifiers: Hypertension type: essential hypertension Qualified Code(s): I10 - Essential (primary) hypertension Plan: Continue with blood pressure medication. Decrease salt intake and exercise on lisinopril hydrochlorothiazide (3) Obesity (BMI 30-39.9): Code(s): E66.9 - Obesity, unspecified Plan: Diet and exercise (4) Liver cirrhosis: Code(s): K74.60 - Unspecified cirrhosis of liver Plan: Patient is strongly advised to abstain from alcohol (5) Tobacco abuse: Code(s): Z72.0 - Tobacco use Plan: Patient advised to stop smoking. (6) Pulmonary nodule: Code(s): R91.1 - Solitary pulmonary nodule Plan: Follow-up CT scan in February 2024 (7) Shoulder pain, left: Code(s): M25.512 - Pain in left shoulder (8) Tinea corporis: Comment: bilateral armpit Code(s): B35.4 - Tinea corporis Orders: Orders XR shoulder LT min 2V Today M25.512 - Pain in left shoulder Referrals Orthopedics Referral M25.512 - Pain in left shoulder Dermatology Referral B35.4 - Tinea corporis Medications: New clotrimazole-betamethasone 1-0.05 % 1 appl topical BID 2 weeks 45 grams 0RF B35.4 - Tinea corporis miconazole nitrate 2% (Zeasorb AF) 1 appl topical BID 85 grams 0RF B35.4 - Tinea corporis Coding Level of Care Code Est Pt Level 4 (85225) Diagnoses Alcohol abuse F10.10 Essential hypertension I10 Hypertension type: essential hypertension Obesity (BMI 30-39.9) E66.9 Liver cirrhosis K74.60 Tobacco abuse Z72.0 Pulmonary nodule R91.1 Shoulder pain, left M25.512 Tinea corporis B35.4
== END 2023-09-19 13:02 | disposition home or self-care (01) ==
PROVIDERS: PCP Internal Medicine; Visit Provider Internal Medicine
DX: I10 Essential (primary) hypertension (principal); K74.60 Unspecified cirrhosis of liver; E66.9 Obesity, unspecified; Z68.39 Body mass index [BMI] 39.0-39.9, adult; F10.10 Alcohol abuse, uncomplicated; Z72.0 Tobacco use; R91.1 Solitary pulmonary nodule; M25.512 Pain in left shoulder; B35.4 Tinea corporis
CPT/HCPCS: 99214

== ENCOUNTER 2023-09-26 11:46 | Outpatient (REF) | payer BC, SELFPAY ==
--- NOTE | ~2023-09-26 | XR_ITS ---
EXAMINATION: XR SHOULDER, LEFT CLINICAL INFORMATION: Pain in left shoulder COMPARISON: None available. TECHNIQUE: AP neutral and scapular Y views of the left shoulder. FINDINGS: The bones are intact. No fracture. Glenohumeral and acromioclavicular alignment is anatomic. Mild degenerative change of acromioclavicular joint. The glenohumeral joint is intact. Several small calcifications are seen adjacent to the humeral head consistent with calcific tendinitis. XR/XR shoulder LT min 2V IMPRESSION: 1. Calcific tendinitis. 2. Mild degenerative change of the acromioclavicular joint.
== END 2023-09-26 11:47 | disposition home or self-care (01) ==
LOC: HO.HOSX 11:46
PROVIDERS: Visit Provider Orthopaedic Surgery
DX: M25.512 Pain in left shoulder (principal)
CPT/HCPCS: 73030

== ENCOUNTER 2023-09-26 14:37 | Outpatient (AMB) | payer BC, SELFPAY ==
[2023-09-26 14:39] VITALS: BMI 39.5
--- NOTE | 2023-09-26 14:39 | MHC.OFFVIS ---
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 The patient states that his symptoms have gotten worse over the last few years in spite of continued non operative treatments. The patient reports difficulty lifting his left hand above shoulder height. He does do quite a bit of lifting at work. He has tried Tylenol and anti-inflammatory medicines which gave him minimal relief. He has also done physical therapy exercises which aggravated his pain. Allergies NSAIDS (Non-Steroidal Anti-Inflamma Allergy (Verified 09/19/23 11:22) Unknown Medication List - Last Reconciled 09/26/23 by Joshua Duggan MD clotrimazole-betamethasone 1-0.05 % 1 appl topical BID 2 weeks lisinopril-hydrochlorothiazide 20-25 mg 1 tab PO DAILY 90 days miconazole nitrate 2% (Zeasorb AF) 1 appl topical BID omeprazole 40 mg PO BID sildenafil (Viagra) 100 mg PO DAILY PRN PFSH Medical History (Updated 09/19/23 @ 12:02 by Dalton Pisano MD) Gastric ulcer Liver cirrhosis Lumbar stress fracture Fractured coccyx Tubular adenoma of colon Erectile dysfunction Hypertension Obesity (BMI 30-39.9) Surgical History No pertinent past surgical history Family History (Updated 09/19/23 @ 11:23 by Mary Hall CMA) Father No problems noted. Mother No problems noted. Brother Alcohol abuse Brother CVA (cerebral vascular accident) Social History (Updated 09/26/23 @ 14:55 by Katheryn Lopez CMA) Household Members: Significant Other Housing: House Do you presently have visiting nurse or other home services: No Alcohol intake: current Alcohol intake frequency: 3 or more drinks per day Alcohol type: beer and hard liquor Patient Tobacco Use Status: Current everyday Tobacco user Tobacco use type: Cigarette Cigarette Packs Per Day: 0.5 Cigarettes Per Day: 6 Years Smoked: 37 e-Cigarette/Vaping Use: Never Used Second Hand Smoke Exposure: No service: No Current occupational status: employed 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[employer] , 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 Cognitive needs: No Hearing needs: No Vision needs: Yes Physical Exam Vital Signs: BMI result Body Mass Index 39.5 Const Other: Well-nourished well-developed very friendly male awake alert and oriented x3 in no acute distress Extrem Other: Bilateral upper extremity examination shows good capillary refill, no skin lesions noted, normal sensation light touch Left shoulder examination shows decreased range of motion when compared to his right shoulder, 4/5 strength with supraspinatus testing, positive impingement signs, tenderness over his acromioclavicular joint, no instability Results Reviewed Results Reviewed: X-rays of the patient's left shoulder taken today show severe acromioclavicular joint narrowing, a type 2 acromion, no acute bony abnormalities Assessment & Plan Assessment & Plan (1) Shoulder pain, left: Code(s): M25.512 - Pain in left shoulder Plan Mr. Resendez presents with progressively worsening left shoulder pain and weakness most likely due to a rotator cuff tear. Thus, I will send the patient for an MRI of his left shoulder for further evaluation. I will see him back once the MRI is completed to discuss the findings and treatment options. Feel free to call me at any time should questions regarding his orthopedic management arise. Thank you very much for asking me to see this very friendly gentleman. I spent 22 minutes in reviewing the patient's records and imaging studies, seeing the patient and documenting in the medical record. Orders: Orders XR shoulder LT min 2V Today M25.512 - Pain in left shoulder MR shoulder LT wo con Today M25.512 - Pain in left shoulder Coding Level of Care Code New Pt Level 2 (85875) Diagnoses Shoulder pain, left M25.512
== END 2023-09-26 15:03 | disposition home or self-care (01) ==
PROVIDERS: PCP Internal Medicine; Visit Provider Orthopaedic Surgery
DX: M25.512 Pain in left shoulder (principal)
CPT/HCPCS: 99202

== ENCOUNTER 2023-09-27 06:48 | Outpatient (REF) | payer BC, SELFPAY ==
[2023-09-27 07:14] LABS: MANUAL DIFF FLAG NO
[2023-09-27 07:54] LABS: INTERNATIONAL NORM RATIO 1.1 (0.9-1.1); Prothrombin Time 13.6 SEC (11.1-13.3)
[2023-09-27 07:57] LABS: Basophils Absolute Auto 0.1 X10*3/uL (0.0-0.2); Eosinophils Absolute Auto 0.1 X10*3/uL (0.0-0.4); Eosinophils Percent Auto 1.9 % (0-4); Hematocrit 37.7 % (42.0-52.0); Hemoglobin 13.5 g/dl (14.0-18.0); Imm Gran Abs Auto 0.05 X10*3/uL (0.00-0.03); Imm Gran Pct Auto 0.9 % (0.0-0.4); Lymphocytes Absolute Auto 1.6 X10*3/uL (1.2-4.9); Lymphocytes Percent Auto 27.3 % (20-40); Mean Corpuscular HGB Conc 35.8 g/dl (31.0-36.0); Mean Corpuscular Volume 89.3 fL (80.0-98.0); Monocytes Absolute Auto 0.7 X10*3/uL (0.1-1.2); Monocytes Percent Auto 11.2 % (2-11); Neutrophils Absolute Auto 3.3 x10*3/uL (2.0-8.3); Neutrophils Percent Auto 57.7 % (45-73); Platelet Count 60 X10*3/uL (160-400); Red Blood Count 4.22 X10*6/uL (4.60-5.80); Red Cell Distribution Width 14.1 % (11.0-16.0); White Blood Count 5.8 X10*3/uL (4.8-10.8)
[2023-09-27 08:21] LABS: Alanine Aminotransferase 34 U/L (0-40); Albumin Level 3.5 g/dL (3.5-5.0); Alkaline Phosphatase 103 U/L (39-117); Aspartate Amino Transferase 48 U/L (5-37); Bilirubin Direct 0.6 mg/dL (0.0-0.5); Bilirubin Total 1.8 mg/dL (0.0-1.0); Total Protein 6.9 g/dL (6.5-8.0)
[2023-09-27 08:32] LABS: Alanine Aminotransferase 33 U/L (0-40); Albumin Level 3.5 g/dL (3.5-5.0); Alkaline Phosphatase 102 U/L (39-117); Anion Gap 13 (12-20); Aspartate Amino Transferase 47 U/L (5-37); Bilirubin Total 1.8 mg/dL (0.0-1.0); Blood Urea Nitrogen 14 mg/dL (9-16); Calcium 9.1 mg/dL (8.4-10.2); Carbon Dioxide 27 mmol/L (22-29); Chloride 99 mmol/L (96-108); Cholesterol 186 mg/dL (<200); Estimated Glomerular Filt Rate > 60; Glucose Random 111 mg/dL (60-115); HDL Cholesterol 53 mg/dL (>40); Iron 111 mcg/dL (45-160); LDL Cholesterol Calculated 116 mg/dL (<100); Percent Iron Saturation 35 % (15-50); Potassium 4.2 mmol/L (3.3-5.1); Sodium 135 mmol/L (135-145); Total Iron Binding Capacity 321 mcg/dL (228-428); Total Protein 6.9 g/dL (6.5-8.0); Triglycerides 89 mg/dL (<150); Unsaturated Iron Binding 210 ug/dL
[2023-09-27 08:37] LABS: Ferritin 41 ng/mL (20-250); Free T4 (Free Thyroxine) 0.93 ng/dL (0.71-1.85); Thyroid Stimulating Hormone 1.93 uIU/mL (0.32-4.0)
[2023-09-27 08:57] LABS: Folate 9.8 ng/mL (> or = 4.0); Prostate Specific Antigen Scr 0.32 ng/mL (<0.05-4.0); Vitamin B12 552 pg/mL (200-900)
[2023-10-01 12:57] LABS: Alpha Fetoprotein 3.6 ng/mL (<6.1)
== END 2023-09-27 06:49 | disposition home or self-care (01) ==
LOC: HO.LAB 06:48
PROVIDERS: Absent Provider Internal Medicine; PCP Internal Medicine; Visit Provider Internal Medicine
DX: Z12.5 Encounter for screening for malignant neoplasm of prostate (principal); K74.60 Unspecified cirrhosis of liver; E78.00 Pure hypercholesterolemia, unspecified
CPT/HCPCS: 36415; 80053; 80061; 80076; 82105; 82248; 82607; 82728; 82746; 83540; 84153; 84439; 84443; 85025; 85610

== ENCOUNTER 2023-10-12 16:49 | Outpatient (REF) | payer BC, SELFPAY ==
--- NOTE | ~2023-10-12 | MR_ITS ---
EXAMINATION: MR SHOULDER WITHOUT CONTRAST, LEFT CLINICAL INFORMATION: Worsening left shoulder pain. Decreased range of motion. COMPARISON: Left shoulder radiographs dated 09/26/2023. TECHNIQUE: MRI of the shoulder without contrast was performed on a high-field scanner. FINDINGS: ROTATOR CUFF: Lobulated low T1/T2 signal within the distal aspect of the infraspinatus tendon measuring up to 0.6 x 1.5 x 1.4 cm, corresponding to the prior radiographs and consistent with calcific tendinitis. Mild adjacent edema. Mild subscapularis tendinosis. No measurable rotator cuff tendon tear. No muscle atrophy or fatty infiltration. BICEPS: Small amount of fluid within the proximal long head biceps tendon sheath which may be related to the small joint effusion or indicate mild tenosynovitis. No transverse tendon tear or tendon retraction. CORACOACROMIAL ARCH: The undersurface of the acromion is minimally curved with no subacromial spur. Severe acromioclavicular osteoarthritis with a small joint effusion. Trace edema within the subacromial subdeltoid bursa, consistent with minimal bursitis. LABRUM/CAPSULE: Somewhat linear, intermediate signal within the undersurface of the superior labrum consistent with nondisplaced undersurface tearing. There is a superior paralabral cyst measuring up to 1.2 cm in greatest dimension. Mild thickening and edema of the anteroinferior joint capsule which can be seen in the setting of adhesive capsulitis. GLENOHUMERAL JOINT/MARROW: Intact articular cartilage. No acute osseous injury. Small joint effusion. MR/MR shoulder LT wo con IMPRESSION: 1. Distal infraspinatus calcific tendinitis with mild adjacent edema. Mild subscapularis tendinosis. No measurable rotator cuff tendon tear. 2. Small amount of fluid within the proximal long head biceps tendon sheath which may be related to the small joint effusion or indicate mild tenosynovitis. No transverse tendon tear or tendon retraction. 3. Severe acromioclavicular osteoarthritis with a small joint effusion. Minimal subacromial subdeltoid bursitis. 4. Nondisplaced undersurface tear of the superior labrum with a superior paralabral cyst measuring up to 1.2 cm. 5. Mild thickening and edema of the anteroinferior joint capsule which can be seen the setting of adhesive capsulitis.
--- NOTE | ~2023-10-12 | XR_ITS ---
EXAMINATION: Right knee CLINICAL INFORMATION: Pre-MRI study. Evaluate for foreign body. COMPARISON: None. TECHNIQUE: 2 views of the right knee FINDINGS: There is no radiopaque foreign body. No air in the soft tissue. Small exostosis of the medial femoral epicondyle. Mild joint narrowing of the medial femoral tibial joint. No joint effusion. XR/XR pre mri screening IMPRESSION: 1. No radiopaque foreign body. 2. Small exostosis of the medial femoral epicondyle. 3. Mild joint narrowing of the medial femoral tibial joint.
== END 2023-10-12 16:50 | disposition home or self-care (01) ==
LOC: HO.MRI 16:49
PROVIDERS: Absent Provider Internal Medicine; PCP Internal Medicine; Visit Provider Orthopaedic Surgery
DX: M25.512 Pain in left shoulder (principal)
CPT/HCPCS: 73221

== ENCOUNTER → 2023-10-22 11:07 | Outpatient (BNV) | payer BC, SELFPAY | PROVIDERS: PCP Internal Medicine; Referring Provider Internal Medicine; Visit Provider Internal Medicine Medical Oncology | DX: D69.6 Thrombocytopenia, unspecified (principal) | CPT/HCPCS: 99204 ==

== ENCOUNTER 2023-10-23 13:14 | Outpatient (AMB) | payer BC, SELFPAY ==
[2023-10-23 13:15] VITALS: BMI 40.4
--- NOTE | 2023-10-23 13:15 | A.OFFVIS_ITS ---
Intake Vital Signs 10/23/23 13:15 Height 5 ft 8 in Weight 266 lb BMI 40.4 Intake Visit Reasons: O/V LT shdr MRI rev Intake Note: Omar is a 58 year old 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 male who presents with complaints of progressively worsening left shoulder pain. The patient states that his symptoms have gotten worse over the last few years in spite of continued non operative treatments. The patient reports difficulty lifting his left hand above shoulder height. He does do quite a bit of lifting at work. He has tried Tylenol and anti-inflammatory medicines which gave him minimal relief. He has also done physical therapy exercises which aggravated his pain. Allergies NSAIDS (Non-Steroidal Anti-Inflamma Allergy (Verified 10/23/23 13:18) Unknown Medication List - Last Reconciled 10/23/23 by Joshua Duggan MD clotrimazole-betamethasone 1-0.05 % 1 appl topical BID 2 weeks lisinopril-hydrochlorothiazide 20-25 mg 1 tab PO DAILY 90 days miconazole nitrate 2% (Zeasorb AF) 1 appl topical BID omeprazole 40 mg PO BID sildenafil (Viagra) 100 mg PO DAILY PRN PFSH Medical History Gastric ulcer Liver cirrhosis Lumbar stress fracture Fractured coccyx Tubular adenoma of colon Erectile dysfunction Hypertension Obesity (BMI 30-39.9) Surgical History No pertinent past surgical history Family History Father No problems noted. Mother No problems noted. 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 , 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 Cognitive needs: No Hearing needs: No Vision needs: Yes Physical Exam Vital Signs: BMI result Body Mass Index 40.4 Const Other: Well-nourished well-developed very friendly male awake alert and oriented x3 in no acute distress Extrem Other: Bilateral upper extremity examination shows good capillary refill, no skin lesions noted, normal sensation light touch Left shoulder examination shows slightly decreased range of motion when compared to his right shoulder, 4+ out of 5 strength with supraspinatus testing, positive impingement signs, tenderness over his acromioclavicular joint, no instability Results Reviewed Results Reviewed: MRI of the patient's left shoulder show severe acromioclavicular joint narrowing, a type 2 acromion, signal change within the supraspinatus tendon most likely due to rotator cuff tendinosis Assessment & Plan Assessment & Plan (1) Impingement syndrome of left shoulder: Code(s): M75.42 - Impingement syndrome of left shoulder Plan Mr. Resendez presents with progressively worsening left shoulder pain due to impingement syndrome and acromioclavicular joint arthritis. I had a lengthy discussion with the patient regarding the treatment options. At this point he has failed continued non operative treatments. The risks and benefits of left shoulder surgery were discussed at length with the patient. The patient wishes to proceed with surgery. Surgery will involve left shoulder diagnostic arthroscopy with distal clavicle excision and acromioplasty. The patient will be scheduled for next available date. He will be given a prescription for pain medicine at the time of his surgery. He will follow-up as instructed. Feel free to call me at any time should questions regarding his orthopedic management arise. I spent 22 minutes in reviewing the patient's records and imaging studies, seeing the patient and documenting in the medical record. Coding Level of Care Code Est Pt Level 2 (08855) Diagnoses Impingement syndrome of left shoulder M75.42
== END 2023-10-23 13:31 | disposition home or self-care (01) ==
PROVIDERS: PCP Internal Medicine; Visit Provider Orthopaedic Surgery
DX: M75.42 Impingement syndrome of left shoulder (principal)
CPT/HCPCS: 99214

== ENCOUNTER → 2023-10-23 13:14 | Outpatient (BNVA) | payer BC, SELFPAY | PROVIDERS: PCP Internal Medicine; Visit Provider Orthopaedic Surgery ==

== ENCOUNTER 2023-11-16 05:55 | Day surgery (SDC) | payer BC, SELFPAY ==
[2023-11-14 09:37] VITALS: BMI 39.5
--- NOTE | 2023-11-15 09:20 | P.CONAN_ITS ---
HPI - Anesthesia Eval Consult details Narrative: 58yo M for Left Shoulder Arthroscopy, distal clavicle excision, acromioplasty ETOH cirrhosis with thrombocytopenia. 11/14/23 Plts low at 48. Follows [facility] heme. Per Dr Black, pt to receive plt transfusion preop. 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 Phone assessment with PAT RN. [facility] Active Problems Active Problems: All Active Problems Impingement syndrome of left shoulder (Acute) Thrombocytopenia (Acute) Thrombocytopenia (Acute) Shoulder pain, left (Acute) Pulmonary nodule (Acute) Nicotine dependence, cigarettes, uncomplicated (Acute) Nicotine dependence (Acute) Tinea corporis (Acute) Low back pain (Acute) Tobacco abuse (Acute) Tinnitus (Acute) Alcohol abuse (Acute) Cramping of hands (Acute) Anemia (Acute) Right flank pain (Acute) Bicipital tendinitis of right shoulder (Acute) Annual physical exam (Acute) Multiple pigmented nevi (Acute) Liver cirrhosis (Acute) Gastric ulcer (Acute) Tubular adenoma of colon (Acute) Erectile dysfunction (Acute) Hypertension (Acute) Obesity (BMI 30-39.9) (Acute) Past Medical History Medical History (Updated 11/14/23 @ 09:25 by Sara Robles RN) GERD (gastroesophageal reflux disease) Alcohol dependence Pulmonary nodule Thrombocytopenia Gastric ulcer Liver cirrhosis Lumbar stress fracture Fractured coccyx Tubular adenoma of colon Erectile dysfunction Hypertension Obesity (BMI 30-39.9) Family History Family History Father No problems noted. Mother No problems noted. Brother Alcohol abuse Brother CVA (cerebral vascular accident) Family history of problems with anesthesia: No Surgical History Surgical History (Updated 11/14/23 @ 09:22 by Sara Robles RN) History of esophagogastroduodenoscopy (EGD) H/O colonoscopy History of Problems with Anesthesia: No Social History Social History (Updated 10/22/23 @ 11:17 by Brigid Otoole) Household Members: Significant Other Housing: House Do you presently have visiting nurse or other home services: No Alcohol intake: current Alcohol intake frequency: 3 or more drinks per day Alcohol type: beer and hard liquor Patient Tobacco Use Status: Current everyday Tobacco user Tobacco use type: Cigarette Cigarette Packs Per Day: 0.5 Cigarettes Per Day: 6 Years Smoked: 37 e-Cigarette/Vaping Use: Never Used Second Hand Smoke Exposure: No Use of substances other than those prescribed or required for medical reasons: No Do you feel safe in your current relationship?: Yes Advance Directives Date on File: 11/21/22 Do you have thoughts of harming others: None Do you have a plan to hurt others: No Plan service: No Current occupational status: employed 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 , 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 Cognitive needs: No Hearing needs: No Vision needs: Yes Meds Allergies Allergy/AdvReac Type Severity Reaction Status Date / Time NSAIDS (Non-Steroidal Allergy Intermediate Gastrointestinal Verified 11/14/23 09:25 Anti-Inflamma Upset Active Medications: Current Medications Cefazolin Sodium/Dextrose (Ancef) 2 gm in 50 mls @ 100 mls/hr IV PREOP ONE Stop: 11/16/23 06:00 Exam Height,Weight and Vital Signs: Height 5 ft 8 in Weight 117.934 kg Pertinent Lab Results Pertinent Lab Results: Laboratory Tests 11/14/23 11:24 WBC 5.5 Hgb 14.4 Hct 39.9 L Plt Count 48 L Sodium 136 Potassium 4.1 Chloride 101 Carbon Dioxide 27 BUN 12 Creatinine 0.86 Laboratory Tests 11/14/23 11:24 Total Bilirubin 1.8 H AST 49 H ALT 36 Alkaline Phosphatase 103 Total Protein 6.9 Albumin 3.4 L Laboratory Tests 11/14/23 11:24 Blood Type O Positive Antibody Screen NEGATIVE Narrative Narrative: EKG 10/2023 Vent. Rate : 087 BPM Atrial Rate : 087 BPM P-R Int : 164 ms QRS Dur : 090 ms QT Int : 364 ms P-R-T Axes : 063 054 046 degrees QTc Int : 438 ms Normal sinus rhythm Normal ECG No previous ECGs available US abdomen complete 08/2023 IMPRESSION: Hepatic cirrhosis. Splenomegaly. (No ascited noted) Assessment and Plan Assessment Anesthesia Assessment: Chart Reviewed Final Anesthetic Review Family History of Problems with Anesthesia: No History of Problems with Anesthesia: No
[2023-11-16] VITALS (11 sets, daily range): BP systolic 101–154; BP diastolic 65–97; PULSE 86–101; RESP 16–18; TEMP 36.2–37.1; O2SAT 94–98
[2023-11-16] MEDS: Lactated Ringers 1,000 ML 100 ML IVCONT (06:58)
[2023-11-16] MEDS: Albuterol Sulfate (0.083%) 2.5 MG/3 ML VIAL.NEB INHALE (07:13)
--- NOTE | 2023-11-16 09:30 | PC.NURSE ---
Second bag of platelets hung and documented in TAR at beginning. This bag was hung one minute late due to finding a second witness and anesthesia in process of completing block. Second bag was not completed when patient left sss and information and 2 documentation sheets given to Kendra KHANNA and she is aware of places to fill in on second bag sheet to finalize transfusion. First sheet was completed by author as well and documentation in TAR.
--- NOTE | 2023-11-16 11:16 | P.BOP_ITS ---
Brief Operative Note Date of Service: 11/16/23 Pre-op diagnosis: Left shoulder acromioclavicular joint arthritis, left shoulder impingement syndrome, left shoulder adhesive capsulitis Post-op diagnosis: same Procedure: Left shoulder diagnostic arthroscopy with left shoulder arthroscopic distal clavicle excision, left shoulder arthroscopic acromioplasty, left shoulder arthroscopic anterior capsular release, left shoulder manipulation under anesthesia Implants: none Surgeon: Joshua Duggan MD Anesthesia: GETA and regional Was an Fire Prevention Officer used for this Procedure?: No Estimated blood loss (mL): 10 Pathology: none sent Condition: stable Disposition: PACU
[2023-11-16] MEDS: cefTRIAXone sodium 1 GM in 0.9 % Sodium Chloride 50 ML IV (11:17)
--- NOTE | 2023-11-16 11:17 | W.PM.OPN ---
Operative Note Operative Note Date of Service: 11/16/23 Narrative: After the patient was identified as Omar Resendez and his left shoulder was initialed by myself the patient was brought to the holding area where a left shoulder interscalene regional block was performed by the anesthesiologist in routine fashion. The patient was then brought to the operating room where general anesthesia was induced by the anesthesiologist in routine fashion. The patient was given 2 g of IV Ancef preoperatively for infection prophylaxis. Examination under anesthesia of the patient's left shoulder showed decreased range of motion when compared to the right shoulder. The patient's left shoulder had forward flexion to 120 degrees compared to 170 degrees, external rotation to 20 degrees compared to 60 degrees, and internal rotation to 30 degrees compared to 40 degrees. The patient was gently positioned in the beach chair position with all bony prominences well padded. The patient's left shoulder region and upper extremity were prepped and draped in sterile fashion. A formal time-out was completed. A #11 scalpel blade was used to make a posterior portal 2 cm inferior and 1 cm medial to the posterolateral corner of the acromion. Blunt trocar technique was used to enter the glenohumeral joint in routine fashion. An anterior portal was made just lateral to the coracoid process after proper positioning was confirmed using a spinal needle. Diagnostic arthroscopy showed minimal degenerative changes of the glenoid and humeral head articular surfaces. There was no evidence of rotator cuff tearing. There was no evidence of injury to the biceps tendon or its insertion onto the glenoid. There was inflammation of the anterior joint capsule consistent with adhesive capsulitis. The ArthroCare Wand was then used to perform an anterior capsular release between the inferior border of the biceps tendon and the superior border of the subscapularis tendon. The arthroscope was then placed from the posterior portal into the subacromial space. A lateral portal was made 2 fingerbreadths lateral to the anterior lateral corner of the acromion. The ArthroCare Wand was used to ablate soft tissues along the undersurface of the acromion as well as to excise the coracoacromial ligament. There was a sharp spur along the undersurface of the acromion which was removed using the hooded bur. The arthroscope was then placed into the lateral portal and the acromioplasty was completed with the bur in the posterior portal using the posterior aspect of the acromion as a cutting block. The ArthroCare Wand was then brought in through the anterior portal and was used to ablate soft tissues along the acromioclavicular joint and distal clavicle. The posterior and superior ligamentous structures were left intact. A distal clavicle excision of 8 mm was performed using the hooded bur. Any remaining bursal tissue was removed using the arthroscopic shaver. The subacromial space was irrigated and then drained. All arthroscopic instruments were removed. A gentle manipulation under anesthesia was then performed. Full passive range of motion was easily attained. The 3 portals were closed with 3-0 nylon interrupted suture. The subacromial space was injected with Marcaine. Dry sterile dressing was placed over all incisions. The patient's left upper extremity was placed into a sling. The patient was awoken and extubated in the operating room. The patient was transferred to the recovery room in stable condition.
== END 2023-11-16 12:21 | disposition home or self-care (01) ==
PROVIDERS: PCP Internal Medicine; Visit Provider Orthopaedic Surgery
PROC: (CPT 29805; principal; 2023-11-16 09:00)
DX: M75.42 Impingement syndrome of left shoulder (principal); M75.02 Adhesive capsulitis of left shoulder; M19.012 Primary osteoarthritis, left shoulder; I10 Essential (primary) hypertension; E66.9 Obesity, unspecified; Z68.41 Body mass index [BMI] 40.0-44.9, adult; Z79.899 Other long term (current) drug therapy; Z88.6 Allergy status to analgesic agent; F17.210 Nicotine dependence, cigarettes, uncomplicated
CPT/HCPCS: 29824; 29825; 29826; 86850; 86900; 86901; 93005; 94640; J0171; J0665; J0690; J0696; J1100; J2250; J2405; J2704; J2795; J3010; P9073

== ENCOUNTER → 2023-11-16 05:55 | Outpatient (BNV) | payer BC, SELFPAY | PROVIDERS: PCP Internal Medicine; Visit Provider Orthopaedic Surgery | DX: M19.012 Primary osteoarthritis, left shoulder (principal); M75.42 Impingement syndrome of left shoulder; M75.02 Adhesive capsulitis of left shoulder | CPT/HCPCS: 29824; 29826 ==

== ENCOUNTER 2023-11-27 10:10 | Outpatient (AMB) | payer BC, SELFPAY ==
--- NOTE | 2023-11-27 10:56 | MHC.OFFVIS ---
Intake Visit Reasons: PO LT Shld 11/16/23 DR Intake Note: Omar is a 58 year old male who presents for his post operative appointment s/p his Left shoulder on 11/16/2023. Patient reports he is having pain and discomfort but it is improving. He states he has been able to do things that he hasn't done in years. He continues with his home stretching program. Allergies NSAIDS (Non-Steroidal Anti-Inflamma Allergy (Intermediate, Verified 11/14/23 09:25) Gastrointestinal Upset Medication List - Last Reconciled 11/27/23 by Joshua Duggan MD hydrocodone-acetaminophen 5-325 mg 1 tab PO Q6H PRN 2 weeks lisinopril-hydrochlorothiazide 20-25 mg 1 tab PO DAILY 90 days sildenafil (Viagra) 100 mg PO DAILY PRN PFSH Medical History (Updated 11/14/23 @ 09:25 by Sara Robles, RN) GERD (gastroesophageal reflux disease) Alcohol dependence Pulmonary nodule Thrombocytopenia Gastric ulcer Liver cirrhosis Lumbar stress fracture Fractured coccyx Tubular adenoma of colon Erectile dysfunction Hypertension Obesity (BMI 30-39.9) Surgical History (Updated 11/14/23 @ 09:22 by Sara Robles, KAYODE) History of esophagogastroduodenoscopy (EGD) H/O colonoscopy Family History Father No problems noted. Mother No problems noted. Brother Alcohol abuse Brother CVA (cerebral vascular accident) Social History (Updated 10/22/23 @ 11:17 by Brigid Otoole) Household Members: Significant Other Housing: House Do you presently have visiting nurse or other home services: No Alcohol intake: current Alcohol intake frequency: 3 or more drinks per day Alcohol type: beer and hard liquor Patient Tobacco Use Status: Current everyday Tobacco user Tobacco use type: Cigarette Cigarette Packs Per Day: 0.5 Cigarettes Per Day: 6 Years Smoked: 37 e-Cigarette/Vaping Use: Never Used Second Hand Smoke Exposure: No Advance Directives Date on File: 11/21/22 service: No Current occupational status: employed 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 Resendez is doing very well after undergoing left shoulder arthroscopic surgery on 11/16/2023. His sutures were removed and Steri-Strips placed over his incisions. He will continue with his home stretching program. The do's and don'ts of lifting were discussed at length with the patient. I did refill his prescription for Vicodin. He will contact me prior to his follow-up appointment in 2 months should any questions or concerns arise. Feel free to call me at any time should questions regarding his orthopedic management arise. Medications: Changed From hydrocodone-acetaminophen 5-325 mg Partial Fill upon patient request. 2 tabs PO Q4H 1 week PRN 40 tabs 0RF pain To hydrocodone-acetaminophen 5-325 mg Partial Fill upon patient request. 1 tab PO Q6H PRN 30 tabs 0RF pain 2 weeks Coding Level of Care Code Global (87696) Diagnoses Shoulder pain, left M25.512
== END 2023-11-27 11:29 | disposition home or self-care (01) ==
PROVIDERS: PCP Internal Medicine; Visit Provider Orthopaedic Surgery
DX: M25.512 Pain in left shoulder (principal)
CPT/HCPCS: 99024

== ENCOUNTER → 2023-11-27 10:10 | Outpatient (BNVA) | payer BC, SELFPAY | PROVIDERS: PCP Internal Medicine; Visit Provider Orthopaedic Surgery ==

== ENCOUNTER 2024-01-29 13:43 | Outpatient (AMB) | payer BC, SELFPAY ==
--- NOTE | 2024-01-29 13:48 | MHC.OFFVIS ---
Intake Visit Reasons: PO LT Shld 11/16/23 Intake Note: Omar is a 58 year old male who presents to the office today for a PO left shoulder 11/16/23 . Pt states his left shoulder is doing well. He states a few times a day he will get zingers but overall he states he is improving. He continues with his home stretching program. Allergies NSAIDS (Non-Steroidal Anti-Inflamma Allergy (Intermediate, Verified 01/29/24 13:49) Gastrointestinal Upset Medication List - Last Reconciled 01/29/24 by Joshua Duggan MD lisinopril-hydrochlorothiazide 20-25 mg 1 tab PO DAILY 90 days sildenafil (Viagra) 100 mg PO DAILY PRN PFSH Medical History (Updated 11/27/23 @ 18:55 by Dalton Pisano MD) GERD (gastroesophageal reflux disease) Alcohol dependence Pulmonary nodule Thrombocytopenia Gastric ulcer Liver cirrhosis Lumbar stress fracture Fractured coccyx Tubular adenoma of colon Erectile dysfunction Hypertension Obesity (BMI 30-39.9) Surgical History (Updated 11/14/23 @ 09:22 by Sara Robles RN) History of esophagogastroduodenoscopy (EGD) H/O colonoscopy Family History Father No problems noted. Mother No problems noted. Brother Alcohol abuse Brother CVA (cerebral vascular accident) Social History (Updated 10/22/23 @ 11:17 by Brigid Otoole) Household Members: Significant Other Housing: House Do you presently have visiting nurse or other home services: No Alcohol intake: current Alcohol intake frequency: 3 or more drinks per day Alcohol type: beer and hard liquor Patient Tobacco Use Status: Current everyday Tobacco user Tobacco use type: Cigarette Cigarette Packs Per Day: 0.5 Cigarettes Per Day: 6 Years Smoked: 37 e-Cigarette/Vaping Use: Never Used Second Hand Smoke Exposure: No Advance Directives Date on File: 11/21/22 service: No Current occupational status: employed 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 Resendez continues to do very well after undergoing left shoulder arthroscopic surgery on 11/16/2023. He will continue with his range of motion exercises to prevent stiffness. The do's and don'ts of lifting were discussed at length with the patient. Will follow up with me on an as-needed basis should his symptoms not plateau at an unacceptable level over the next few months. Feel free to call me at any time should questions regarding his orthopedic management arise. Coding Level of Care Code Global (66912) Diagnoses Shoulder pain, left M25.512
== END 2024-01-29 14:12 | disposition home or self-care (01) ==
PROVIDERS: PCP Internal Medicine; Visit Provider Orthopaedic Surgery
DX: M25.512 Pain in left shoulder (principal)
CPT/HCPCS: 99024

== ENCOUNTER → 2024-01-29 13:43 | Outpatient (BNVA) | payer BC, SELFPAY | PROVIDERS: PCP Internal Medicine; Visit Provider Orthopaedic Surgery ==

== ENCOUNTER 2024-11-10 10:58 | Outpatient (AMB) | payer BC, SELFPAY ==
--- OUTSIDE RECORDS SUMMARY | 2024-11-10 11:01 | XMS_ITS | Clinical Summary ---
Author Organization [facility] Address [address] [place] [phone] Care Team Providers Care Cable Tower Operator Name Role Phone Pcp, No Primary Care Provider Unavailabl e Social History Tobacco Use Types Packs/Day Years Used Date Smoking Tobacco: Never Assessed Sex and Gender Information Value Date Recorded Sex Assigned at Not on file Legal Sex Male 6:23 PM EDT Gender Identity Not on file Sexual Orientation Not on file Plan of Treatment Health Maintenance Due Date Last Done Comments Hepatitis C Virus Screening 1965 HIV Screening 1976 DTaP/Tdap/Td Vaccines (1 - Tdap) 1982 Pneumococcal Vaccines 50+ (1 of 1 - PCV) 2013 Zoster (Shingles) Vaccine (1 of 2) 2013 COVID-19 Vaccine ( - 2023-2 5 season) 2024 RSV Vaccine 60 years and old er and Patients (1 - 1-dose 75+ series) 2038 Hepatitis B Vaccines Aged Out No long er eligible based on patient's age to complete this topic Care Teams Cable Tower Operator Relationship Specialty Start Date End Date Pcp, No PCP - General General Medicine 07/14/15
--- OUTSIDE RECORDS SUMMARY | 2024-11-10 11:02 | XMS_ITS | Encounter Summary ---
Author Organization [facility] Address [address] [place] [address] Care Team Providers Care Skip Loader Name Role Phone Pcp, No Primary Care Provider Unavailabl e Encounter Details Date Type Department Care Team (Late st Contact Info) Description 07/15/2015 Scanned Document [address] [phone] Provider, Generic Social History Tobacco Use Types Packs/Day Years Used Date Smoking Tobacco: Never Assessed Sex and Gender Information Value Date Recorded Sex Assigned at Not on file Legal Sex Male 6:23 PM EDT Gender Identity Not on file Sexual Orientation Not on file documented as of this encounter Plan of Treatment Not on file documented as of this encounter Procedures Procedure Name Priority Date/Time Associated Diagnosis Comments MD COMPRE AUDIOMETRY THRESHOLD EVAL SP RECOGNIJ 07/15/2015 documented in this encounter Results * MD COMPREHENSIVE HEARING TEST (07/15/2015) Narrative 07/15/2015 Ordered by an unspecified provider. us Generic Provider MD OTORHINOLARYNGOLOGIC Final R esult documented in this encounter Visit Diagnoses Not on filedocumented in this encounter Care Teams Skip Loader Relationship Specialty Start Date End Date Pcp, No PCP - General General Medicine 07/14/15 documented as of this encounter
--- OUTSIDE RECORDS SUMMARY | 2024-11-10 11:02 | XMS_ITS | Patient Health Record ---
Author Organization [facility] Address [address] [place] [address] Care Team Providers Care Jewelry Facer Name Role Phone Dalton Pisano MD Primary Care Provider Hector Virgen Unavailable [phone] Allergies No Known Allergies Reason For Referral Referring Provider First Name Dalton Referring Provider Last Name Norris Referring Provider Speciality Internal M edicine Referred Organization [facility] Referred Provider Hector Alcantar Referred Address [address],[place], [place],[address], Referred Provider Specialty Gastroentero logy General Notes Mirian Chan 024 04:15:14 PM EST > requested an o blue referral from Dr. Pisano's office for visit with Dr. Alcantar on [phone] (left message on answering machine) Referral Priority Routine Medications Medication SIG (Take, Route, Fr equency, Duration) Notes Start Date End Date Status Lisinopril 10 MG 1 tablet Orally Once a day Active Omeprazole 40 MG 1 Orally Once a day in the morning for 90 days 01/09/2023 Active Social History Tobacco Use: Social History Observation Description Date Details (start date - stop date) Current Smoker NA - NA Tobacco Use/Smoking Question Answer Notes Patient is a current smoker How many cigarettes a day do you smoke? 5 or les s Alcohol Screen Question Answer Notes Did you have a drink contain ing alcohol in the past year? Yes How often did you have a dri nk containing alcohol in the past year? 4 or more times a week (4 points) How many drinks did you have on a typical day when you were drinking in the past year? 3 or 4 drinks (1 point) How often did you have 6 or more drinks on one occasion in the past year? Weekly (3 points) Points 8 Interpretation Positive Section Notes: Nonsmoker; at least 4-5 beer s/drinks per day Smokes a few cigarettes johnny y; at least 4-5 beers/drinks per day Smokes a few cigarettes johnny y; at least 4-5 beers/drinks per day Problems Problem Type SNOMED Code ICD Code Onset Dates Problem Status W/U Status Risk Notes Problem 669602880 Encounter for screening for malignant neoplasm of colon (Z12.11) Active confirmed Problem 241214335 History of adenomatous polyp of colon (Z86.010) Active confirmed Problem Esophageal varices without bleeding (37512603) Esophageal varices without bleeding (I85.00) Active confirmed Problem 659018859 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) Active confirmed Problem Portal hypertension (91784144) Portal hypertension (K76.6) Active confirmed Problem History of polyp of colon (512503121) History of colon polyps (Z86.010) Active confirmed Problem Esophageal varices (85983099) Esophageal varices (I85.00) Active confirmed Problem Gastritis (5032613) Gastritis (K29.70) Active confirmed Problem 817235616 Anemia, unspecified type (D64.9) Active confirmed Problem 636383715686559 Pre-procedural examination (Z01.818) Active confirmed Problem Gastric ulcer (410833352) Gastric ulcer (K25.9) Active confirmed Problem Diverticulosis of colon (332664550) Diverticulosis of colon (K57.30) Active confirmed Encounters Encounter Location Date Provider Diagnosis [facility] [address] [place] [phone] 07/30/2024 Hector Alcantar Plan Of Treatment Pending Test Test Name Order Date CHEM 7 PROFILE 01/09/2023 LIVER PROFILE 07/31/2023 LIVER PROFILE 01/09/2023 IRON + IBC (FE) 01/09/2023 CBC w DIFF 07/31/2023 CBC w DIFF 01/09/2023 ALPHA-FETOPROTEIN,TUMOR MARKER Prothrombin Time INR 07/31/2023 Liver Panel 09/27/2023 Hepatitis A Antibody IgG 01/09/2023 US abdomen complete 07/31/2023 Future Test Test Name Order Date COLONOSCOPY 12/26/2017 UPPER GI ENDOSCOPY 01/09/2023 COLONOSCOPY 01/09/2023 Next Appt Details Provider Name:Hector Alcantar , 12/03/2024 03:00:00 PM, [address], [address], [place], [address], Insurance Providers Payer Name Payer Address Payer Phone Subscriber Number Group Number Insured Name Patient Relationship to Insured Coverage Start Date Coverage End Date [facility] [employer] [address] [place] [address] [id number] ADRIANA GRIJALVA Self - patient is the insured Medical (General) History Medical History History ICD Code Hypertension Denies ME,DM,CVA,Lung disease,renal dise ase Alcohol related cirrhosis se en on CT scan in November of 2022--there was no mass or ascites noted at that time Upper GI bleed in November--Dr. Rodriguez performed an upper endoscopy with the finding of multiple gastric ulcers, nonbleeding grade 1 esophageal varices, and portal gastropathy--gastric biopsies were negative for H. pylori Colonoscopy in November of 2017 r evealed a small tubular adenoma that was removed and hyperplastic polyps Thrombocytopenia due to cirrhosis Screening Colonoscopy in February of 2023 was negative for polyps EGD in 02/2023 revealed grade 1-2 esophageal varices without any signs of bleeding and a healed gastric ulcer Surgical History Surgery Date(Month/Year)
--- OUTSIDE RECORDS SUMMARY | 2024-11-10 11:02 | XMS_ITS ---
Author Organization [facility] Address [address] [place] [phone] Care Team Providers Care Professor Of Communication And Writing Name Role Phone Dalton Pisano MD Primary Care Provider Hector Virgen [phone] Allergies No Known Allergies REASON FOR VISIT Patient presents today for esophageal varices, gastritis Medications Medication SIG (Take, Route, Fr equency, [...] points) Points 8 Interpretation Positive Section Notes: Smokes a few cigarettes johnny y; at least 4-5 beers/drinks per day Vital Signs Temperature 98.4 degrees Fahrenheit 07/31/19 24 Blood pressure systolic 00 mm Hg 07/31/19 24 Blood pressure diastolic 00 mm Hg 024 Height 68 in 07/31/2023 Weight 260 lbs 07/31/2023 BMI 39.53 kg/m2 07/31/2023 Encounters Encounter Location Date Provider Diagnosis [facility] [address] [place] [address] 07/31/2023 Hector Alcantar Esophageal varices without bleeding I85.00 ; Alcoholic cirrhosis of liver without ascites K70.30 and Gastritis K29.70 Assessments Encounter Date Diagnosis (ICD Code) Assessment Notes Treatment Notes Treatment Clinical Notes Section Notes 07/31/2023 Esophageal varices without bleeding (ICD-10 - I85.00) Overall, mOar appears stable and does not show any signs of decompensating liver disease despite his ongoing use of alcohol. We did have another detailed conversation today regarding his need to abstain completely from alcohol, including beer. I advised him of the advanced nature of his liver disease in regard to cirrhosis and esophageal varices. I did remind him to avoid all aspirin and NSAIDs long-term, as well as to not use any acetaminophen more than once or twice a day at the most but not on a daily basis. I shall check a followup abdominal ultrasound with Doppler studies and the below laboratories in regard to his chronic liver disease. If things otherwise are stable I advised him to see me in one year for a followup office visit. I did advise him to contact me prior to that if he has any problems or questions I can be of assistance with. Omar was comfortable with this plan. Thank you again for allowing me to participate in Omar's care. I shall continue to keep you advised of his progress. 07/31/2023 Alcoholic cirrhosis of liver without ascites (ICD-10 - K70.30) Overall, Omar appears stable and does not show any signs of decompensating liver disease despite his ongoing use of alcohol. We did have another detailed conversation today regarding his need to abstain completely from alcohol, including beer. I advised him of the advanced nature of his liver disease in regard to cirrhosis and esophageal varices. I did remind him to avoid all aspirin and NSAIDs long-term, as well as to not use any acetaminophen more than once or twice a day at the most but not on a daily basis. I shall check a followup abdominal ultrasound with Doppler studies and the below laboratories in regard to his chronic liver disease. If things otherwise are stable I advised him to see me in one year for a followup office visit. I did advise him to contact me prior to that if he has any problems or questions I can be of assistance with. Omar was comfortable with this plan. Thank you again for allowing me to participate in Omar's care. I shall continue to keep you advised of his progress. 07/31/2023 Gastritis (ICD-10 - K29.70) Overall, Omar appears stable and does not show any signs of decompensating liver disease despite his ongoing use of alcohol. We did have another detailed conversation today regarding his need to abstain completely from alcohol, including beer. I advised him of the advanced nature of his liver disease in regard to cirrhosis and esophageal varices. I did remind him to avoid all aspirin and NSAIDs long-term, as well as to not use any acetaminophen more than once or twice a day at the most but not on a daily basis. I shall check a followup abdominal ultrasound with Doppler studies and the below laboratories in regard to his chronic liver disease. If things otherwise are stable I advised him to see me in one year for a followup office visit. I did advise him to contact me prior to that if he has any problems or questions I can be of assistance with. Omar was comfortable with this plan. Thank you again for allowing me to participate in Omar's care. I shall continue to keep you advised of his progress. Plan Of Treatment Pending Test Test Name Order Date LIVER PROFILE 07/31/2023 CBC w DIFF 07/31/2023 ALPHA-FETOPROTEIN,TUMOR MARKER Prothrombin Time INR 07/31/2023 US abdomen complete 07/31/2023 Next Appt Details Follow Up: 1 Year, Reason: Provider Name:Hector Alcantar , 12/03/2024 03:00:00 PM, [address] [place] [address], [place] [address], [place], [address], Progress Notes * GRIJALVAOMARDOB:1965 (58 yo M)Acc No.[id number]:07/31/2023 Progress Notes Patient:?OMAR GRIJALVA Provider:?Hector Alcantar MD :1965???Age:57 Y???Sex:Male Mauricio e:07/31/2023 Address:[address] [place] [address] Pcp:Dalton Pisano MD Subjective: * Chief Complaints: * ???Patient presents today fo r esophageal varices, gastritis * HPI: ???incontinence:? I saw Omar in followup today in regard to his alcohol-related cirrhosis, previous history of a gastric ulcer, history of nonbleeding esophageal varices, and a personal history of tubular adenomas of the colon. ?I last saw Omar in February of 2023, at which time he underwent a negative screening colonoscopy. He also had a followup upper endoscopy in regard to the previous peptic ulcer disease found on his November 2022 upper endoscopy. The February endoscopy revealed healing of the ulcers and only some mild gastritis. Grade 1-2 nonbleeding esophageal varices were again noted. ?Since those procedures he reports that he has been feeling well, although unfortunately does continue to use alcohol with at least 4 beers per day. He has not noticed any jaundice, increasing abdominal girth, nor edema. He enjoys a good appetite and denies any significant heartburn or dysphagia. He has remained on his daily omeprazole. He is avoiding all NSAIDs. His bowel movements have been regular and he denies any hematochezia nor melena. ?He reports that he is well aware of the need to eliminate alcohol from his lifestyle but he has not been able to nor does he have any plans to try. * ROS:?General/Constitutional:?Change in appetite?denies.?Chills?denies.?Fatigue?denies.?Ophthalmologic:?Comments?all negative.?ENT:?Comments?all negative.?Respiratory:?hemoptysis?denies.?Cough?denies.?Cardiovascular:?Chest pain?denies.?Orthopnea?denies.?Gastrointestinal:?Comments?See HPI for details.?Genitourinary:?Hematuria?denies.?Dysuria?denies.?Musculoskeletal:?Painful joints?denies.?Weakness?denies.?Skin:?Itching?denies.?Rash?denies.?Neurologic:?Headache?denies.?Seizures?denies.?Psychiatric:?Comments?all negative.? * Medical History:? * Surgical History:?Denies Pas t Surgical History * Hospitalization/Major Diagno stic Procedure:?No Hospitalization History. * Family History:?Father: dece ased.?Mother: alive, diagnosed with HTN (hypertension).? No colorectal cancer. * Social History:?Tobacco Use:?Tobacco Use/Smoking?Patient is a?current smoker,?How many cigarettes a day do you smoke??5 or less.?Drugs/Alcohol:?Alcohol Screen?Did you have a drink containing alcohol in the past year??Yes,?How often did you have a drink containing alcohol in the past year??4 or more times a week (4 points),?How many drinks did you have on a typical day when you were drinking in the past year??3 or 4 drinks (1 point),?How often did you have 6 or more drinks on one occasion in the past year??Weekly (3 points),?Points?8,?Interpretation?Positive.?Miscellaneous:?Marital status: . 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 ???Smokes a few cigarettes daily; at least 4-5 beers/drinks per day. * Medications:?TakingLisinopri l 10 MG Tablet 1 tablet Orally Once a dayOmeprazole 40 MG Capsule Delayed Release 1 Orally Once a day in the morningMedication List reviewed and reconciled with the patientTaking Lisinopril 10 MG Tablet 1 tablet Orally Once a dayTaking Omeprazole 40 MG Capsule Delayed Release 1 Orally Once a day in the morningMedication List reviewed and reconciled with the patient * Allergies:?N.K.D.A.yes[Aller gies Verified] Objective: * Vitals:?Wt: 260 lbs, Ht: 68 in, BMI:39.53 Index, BP: 00/00 mm Hg, Temp: 98.4. * Examination: ???General Examination: ?GENERAL APPEARANCE:?pleasant, well nourished, well developed, in no acute distress.?EYES:?sclera non-icteric.?ORAL CAVITY:?mucosa moist.?NECK/THYROID:?no cervical lymphadenopathy, neck supple.?SKIN:?nonjaundiced, no spider angiomata.?HEART:?S1, S2 normal.?LUNGS:?clear to auscultation bilaterally.?ABDOMEN:?normal bowel sounds, no guarding or rigidity, no guarding or rigidity, no masses palpable, soft, nontender, nondistended.?EXTREMITIES:?no edema.?NEUROLOGIC:?alert and oriented.? Assessment: * Assessment: 1.?Alcoholic cirrhosis of li sandeep without ascites - K70.30 (Primary)?2.?Esophageal varices without bleeding - I85.00?3.?Gastritis - K29.70? Overall, Omar appears stable and does not show any signs of decompensating liver disease despite his ongoing use of alcohol. We did have another detailed conversation today regarding his need to abstain completely from alcohol, including beer. I advised him of the advanced nature of his liver disease in regard to cirrhosis and esophageal varices. I did remind him to avoid all aspirin and NSAIDs long-term, as well as to not use any acetaminophen more than once or twice a day at the most but not on a daily basis. I shall check a followup abdominal ultrasound with Doppler studies and the below laboratories in regard to his chronic liver disease. If things otherwise are stable I advised him to see me in one year for a followup office visit. I did advise him to contact me prior to that if he has any problems or questions I can be of assistance with. Omar was comfortable with this plan. Thank you again for allowing me to participate in Omar's care. I shall continue to keep you advised of his progress. Plan: * Treatment: * 2.?Esophageal varices without bleeding?LAB: LIVER PROFILE ?LAB: CBC w DIFF ?LAB: ALPHA-FETOPROTEIN,TUMOR MARKER ?LAB: Prothrombin Time INR ?Imaging: US abdomen complete* Do with Dopplers to assess p ortal vein to rule out portal vein thrombosisSCHED FOR 08/24/23 at 8:00 [facility] ULTRASOUND DEPT 2ND FLOORFASTING 8 HRS PRIOR * * Procedure Codes:?3017F COLOR ECTAL CA SCREEN DOC [id number] Pt scrn tbco and id as [id number] BP SCR NOT PRFRM REC REASON NOS * Preventive Medicine:? ??Counseling:?Care goal follow-up plan:?Above Normal BMI Follow-up?Giving encouragement to exercise,?BMI management provided?Yes.? * Follow Up:?1 Year * * Sign off status: Completed true * Provider:?Hector Alcantar MD Date:? 024 Generated for Jessica hernandez/Shelly/Nahomyitting on:?11/10/2024 11:01 AM EDT History and Physical Notes * HPI (History of Present Illness) Category Sub-Category Detail Notes Category Not es incontinence I saw Omar in followup today in regard to his alcohol-related cirrhosis, previous history of a gastric ulcer, history of nonbleeding esophageal varices, and a personal history of tubular adenomas of the colon. I last saw Omar in February of 2023, at which time he underwent a negative screening colonoscopy. He also had a followup upper endoscopy in regard to the previous peptic ulcer disease found on his November 2022 upper endoscopy. The February endoscopy revealed healing of the ulcers and only some mild gastritis. Grade 1-2 nonbleeding esophageal varices were again noted. Since those procedures he reports that he has been feeling well, although unfortunately does continue to use alcohol with at least 4 beers per day. He has not noticed any jaundice, increasing abdominal girth, nor edema. He enjoys a good appetite and denies any significant heartburn or dysphagia. He has remained on his daily omeprazole. He is avoiding all NSAIDs. His bowel movements have been regular and he denies any hematochezia nor melena. He reports that he is well aware of the need to eliminate alcohol from his lifestyle but he has not been able to nor does he have any plans to try. Examination Category Sub-Category Detail Notes Category Not es General Examination GENERAL APPEARANCE: pleasant , well nourished, well developed, in no acute distress HEAD: EYES: sclera non-icteric EARS: NOSE: THROAT: NECK/THYROID: no cervical lymphade nopathy, neck supple HEART: S1, S2 normal CHEST: LUNGS: clear to auscultatio n bilaterally ABDOMEN: normal bowel sounds, no guarding or rigidity, no guarding or rigidity, no masses palpable, soft, nontender, nondistended NEUROLOGIC: alert and oriented SKIN: nonjaundiced, no spi kate angiomata EXTREMITIES: no edema PERIPHERAL PULSES: BACK: BREASTS: MUSCULOSKELETAL: MALE GENITOURINARY: LYMPH NODES: RECTAL EXAM: FEMALE GENITOURINARY: ORAL CAVITY: mucosa moist
--- OUTSIDE RECORDS SUMMARY | 2024-11-10 11:03 | XMS_ITS ---
Author Organization [facility] Address [address] [place] [address] Care Team Providers Care Insurance Operations Rep Name Role Phone Dalton Pisano MD Primary Care Provider Hector Virgen [phone] REASON FOR VISIT esophageal varices Encounters Encounter Location Date Provider Diagnosis [facility] [address] [place] [phone] 07/31/2024 Hector Alcantar Plan Of Treatment Next Appt Details Provider Name:Hector Alcantar , 12/03/2024 03:00:00 PM, [address], [address], [place], [address], Progress Notes * ADRIANA GRIJALVADOB:1965 (59 yo M)Acc No.[id number]:07/31/2024 Progress Notes Patient:?ADRIANA GRIJALVA Provider:?Hector Alcantar MD :1965???Age:58 Y???Sex:Male Mauricio e:07/31/2024 Address:[address] [place] [address] Pcp:Dalton Pisano MD Subjective: * Chief Complaints: * ???1. Esophageal varices. * Medical History:? Objective: * Vitals:? Assessment: Plan: * Treatment: * * The named appointment provid er may or may not be the originator of this progress note, and it is not deemed complete until electronically signed by the appointment provider. Sign off status: Pending * Provider:?Hector Alcantar MD Date:? 025 Generated for Celinai mary/Shelly/eTransmitting on:?11/10/2024 11:02 AM EDT
[2024-11-10 11:05] VITALS: BP 120/62; PULSE 102; TEMP 36.3; O2SAT 98; BMI 37.7
--- NOTE | 2024-11-10 11:05 | A.OFFPC_ITS ---
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 Required: No Accompanied by: Self / Same As Patient Allergies NSAIDS (Non-Steroidal Anti-Inflamma Allergy (Intermediate, Verified 11/10/24 11:10) Gastrointestinal Upset Medication List - Last Reconciled 11/10/24 by Dalton Pisano MD lisinopril-hydrochlorothiazide 20-25 mg 1 tab PO DAILY 90 days Tobacco use date assessed: 11/10/24 Dental Screening Dental Screen Date: 11/10/24 [facility] Medical History (Updated 11/10/24 @ 11:33 by Dalton Pisano MD) Alcohol abuse Thrombocytopenia Nicotine dependence, cigarettes, uncomplicated GERD (gastroesophageal reflux disease) Pulmonary nodule Gastric ulcer Liver cirrhosis Lumbar stress fracture Fractured coccyx Tubular adenoma of colon Erectile dysfunction Hypertension Obesity (BMI 30-39.9) Surgical History History of colonoscopy History of esophagogastroduodenoscopy (EGD) Family History Father No problems noted. Mother No problems noted. Brother Alcohol abuse Brother CVA (cerebral vascular accident) Social History (Updated 11/10/24 @ 11:40 by Dalton Pisano MD) Household Members: Significant Other Housing: House Do you presently have visiting nurse or other home services: No Alcohol intake: current Alcohol intake frequency: 3 or more drinks per day Alcohol type: beer and hard liquor Comment: daily 4 drinks Patient Tobacco Use Status: Current everyday Tobacco user Tobacco use type: Cigarette Cigarette Packs Per Day: 0.5 Cigarettes Per Day: 6 Years Smoked: 37 cigar a day e-Cigarette/Vaping Use: Never Used Second Hand Smoke Exposure: No Advance Directives Date on File: 11/21/22 service: No Current occupational status: employed 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 1. Little interest or pleasure in doing things: not at all 2. Feeling down, depressed, or hopeless: not at all 3. Trouble falling or staying asleep, or sleeping too much: not at all 4. Feeling tired or having little energy: not at all 5. Poor appetite or overeating: not at all 6. Feeling bad about yourself - or that you are a failure or have let yourself or your family down: not at all 7. Trouble concentrating on things, such as reading the newspaper or watching television: not at all 8. Moving or speaking so slowly that other people could have noticed. Or the opposite - being so fidgety or restless that you have been moving around a lot more than usual: not at all 9. Thoughts that you would be better off or of hurting yourself in some way: not at all Total score: 0 Depression Screening Interpretation: Negative Depression Screening Done: Yes 17872 - PHQ-9 Billing: Yes Source: Developed by Drs. Hector Gamez, Kelly Bonilla, Fausto Recinos and colleagues, with an educational polly from [employer]. Thrive Questionnaire Date Thrive assessed: 11/10/24 I am a: Patient What is your living situation today?: I have a steady place to live Within the past 12 months, did the food you bought not last and you didn't have the money to get more?: Never true Within the past 12 months, did you worry whether your food would run out before you got money to buy more?: Never true Do you have trouble paying for medicines?: No Do you have trouble getting transportation to medical appointments?: No Do you have trouble paying your heating and electricity bill?: No Do you have trouble taking care of your child, family member or friend?: No Do you have trouble with day-to-day activities such as bathing, preparing meals, shopping, managing finances, etc.?: No Are you currently unemployed and looking for a job?: No Are you interested in more education?: No Please select the resources that you would like help with: None Currently or been in a relationship where the following occur: No concerns reported THRIVE Score: 0 AUDIT C Alcohol Use Questionnaire (AUDIT-C) 1. How often do you have a drink containing alcohol?: 4 or more times a week 2. How many drinks containing alcohol do you have on a typical day when you are drinking?: 3 or 4 3. How often do you have six or more drinks on one occasion?: Never Total Score: 5 GIULIANA-7 AMB Questionnaire GIULIANA-7 Date GIULIANA - 7 assessed: 09/19/23 Source: Developed by Drs. Hector Gamez, Kelly Bonilla, Fausto queen nd colleagues, with an educational polly from [employer]. Review of Systems Const Denies poor appetite and Denies weakness Eyes Denies no additional complaints ENT Reports Normal hearing present, Denies dizziness, Denies nasal congestion, Denies tinnitus and Denies sore throat Card Denies chest pain, Denies syncope, Denies rapid heart rate and Denies dyspnea Resp Denies cough and Denies dyspnea GI Denies change in stool character, Reports constipation, Denies diarrhea, Denies nausea and Denies vomiting Denies dysuria and Denies urinary frequency Neuro Reports Normal hearing present, Denies confusion, Denies dizziness, Denies syncope and Denies weakness Psych Denies confusion Physical exam (Primary Care) Vital Signs: Last Vital Signs Temp 97.3 F 11/10/24 11:05 Pulse 102 H 11/10/24 11:05 BP 120/62 11/10/24 11:05 Pulse Ox 98 11/10/24 11:05 Oxygen Delivery Method Room Air 11/10/24 11:05 BMI result Body Mass Index 37.7 Tobacco/Smoking Status: Tobacco use Status Tobacco use date assessed 11/10/24 11/10/24 11:12 Patient Tobacco Use Status Current everyday Tobacco 11/10/24 11:12 Tobacco use type Cigarette 11/10/24 11:12 e-Cigarette/Vaping Use Never Used 11/10/24 11:12 PHQ-9: PHQ-9 Score PHQ-9: Total score 0 11/10/24 11:12 Depression Screening Interpretation: Negative Thrive Assessment: Date of Thrive Assessment Date Thrive assessed 11/10/24 11/10/24 11:12 Currently or been in a relationship where the following occur: No concerns reported Const General: No confusion Orientation/consciousness: No confusion HENMT Head: Yes normocephalic Ears: external ears normal and TM's normal bilaterally Face and sinus: Yes normal facial exam Mouth: moist mucous membranes Throat: Yes tonsils normal Eyes Conjunctivae: conjunctivae normal Pupils: Equal, round and reactive pupils present and Pupil accommodation reflex normal Direct Ophthalmoscopy: normal light reflex Neck Neck: No lymphadenopathy Thyroid: Thyroid normal Chest Chest palpation & inspection: normal inspection of the chest Resp Effort & Inspection: normal respiratory effort and no audible wheezes Auscultation: clear to auscultation bilaterally, no crackles, no wheezes and lung sounds not diminished Cardio Rate: regular rate Rhythm: regular rhythm Peripheral pulses: radial pulses present and dorsalis pedis present GI Palpation (GI): no masses Auscultation: normal bowel sounds and normoactive bowel sounds Rectal Exam - Male: Yes deferred Skin General skin exam: no rashes or lesions noted Rashes: no rashes Neuro General: No confusion Cranial nerves: Yes Equal, round and reactive pupils present and Yes Normal hearing present Cognition (Neuro): normal cognition Gait exam (Neuro): Normal gait present Motor exam (neuro): 5/5 motor strength present throughout Deep tendon reflexes (DTR's): Right brachioradialis reflex intensity grade: 2+, Left brachioradialis reflex intensity grade: 2+, Right patellar reflex intensity grade: 2+ and Left patellar reflex intensity grade: 2+ Extrem General: No edema Coding Level of Care Code Est Pt Prev Care 40-64y(89522) Diagnoses Nicotine dependence, cigarettes, uncomplicated F17.210 Annual physical exam Z00.00 Obesity (BMI 30-39.9) E66.9 Essential hypertension I10 Hypertension type: essential hypertension Alcohol abuse F10.10 Liver cirrhosis K74.60 Gastric ulcer K25.9 Thrombocytopenia D69.6 Impingement syndrome of left shoulder M75.42 Additional Codes PHQ-9 - 86605 - PHQ-9 Billing: Yes ([id number]) Assessment & Plan Assessment & Plan (1) Nicotine dependence, cigarettes, uncomplicated: Comment: (onset 11 for 35 years at 1 ppd - 30+PYH) please can August 2023 Code(s): F17.210 - Nicotine dependence, cigarettes, uncomplicated Category: Medical Plan: Reminded patient about lung cancer screening program (2) Annual physical exam: Code(s): Z00.00 - Encounter for general adult medical examination without abnormal findings Category: Medical Plan: Patient is advised to eat healthy, keep well hydrated, keep active and have adequate sleep. (3) Obesity (BMI 30-39.9): Code(s): E66.9 - Obesity, unspecified Category: Medical Plan: Diet and exercise (4) Hypertension: Code(s): I10 - Essential (primary) hypertension Category: Medical Qualifiers: Hypertension type: essential hypertension Qualified Code(s): I10 - Essential (primary) hypertension Plan: Continue with blood pressure medication. Decrease salt intake and exercise on lisinopril hydrochlorothiazide 20/25 mg once a day (5) Alcohol abuse: Code(s): F10.10 - Alcohol abuse, uncomplicated Category: Social Hx Plan: Patient is strongly advised to abstain from alcohol (6) Liver cirrhosis: Code(s): K74.60 - Unspecified cirrhosis of liver Category: Medical Plan: Patient is strongly advised to abstain from alcohol (7) Gastric ulcer: Code(s): K25.9 - Gastric ulcer, unspecified as acute or chronic, without hemorrhage or perforation Category: Medical Plan: Avoid the foods that causes that usually spicy foods, tomato products, juices, coffee, soda and foods that your sensitive to. After eating do not lie down, allow 3-4 hours before in lie down. And keep the head of bed above 30 degrees to avoid the acid from going up. (8) Thrombocytopenia: Code(s): D69.6 - Thrombocytopenia, unspecified Category: Medical Plan: Continuing to monitor. (9) Impingement syndrome of left shoulder: Comment: Left arthroscopic surgeryApr2023 Dr. Duggan Code(s): M75.42 - Impingement syndrome of left shoulder Category: Medical Plan: Status post surgery in October 2023, keep active Plan History of Present Illness The patient is a 59-year-old male presenting for an annual physical examination with a known history of essential hypertension and thrombocytopenia. He manages his hypertension with lisinopril hydrochlorothiazide and has expressed dissatisfaction with Viagra due to adverse effects, considering alternatives like Cialis. The patient has a history of tubular adenoma of the colon and gastric ulcers, linked with previous alcohol use and resulting in liver cirrhosis. Follow-up hematology assessments have continued to highlight low platelet counts. In postoperative recovery from left shoulder arthroscopy completed in October 2023, the patient has been actively encouraged to engage in physical activity. He recently underwent a preventive CT scan and reported ongoing cigar use. He plans for lifestyle modifications coinciding with impending correction. Health Maintenance - Regular monitoring of blood pressure and platelet counts due to hypertension and thrombocytopenia. - CT scan scheduled for follow-up on previous findings. - Reminder for lung cancer screening due to tobacco use. - Advised to abstain from alcohol and smoking for liver health and general well- being. - Discussion on diet, exercise, and weight management for overall wellness. Social History - History of alcohol abuse, currently advised to abstain. - Currently smokes one cigar daily. - Plans to retire in approximately ten months and anticipates significant lifestyle changes, including increased physical activity. 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 Review of Systems - General: Denies fatigue; states feeling dizzy lately. - Respiratory: Denies shortness of breath or chest pains. - Cardiovascular: Denies heart attacks. - Gastrointestinal: Denies constipation or diarrhea; occasional straining noted. - Musculoskeletal: Reports status post-left shoulder surgery. 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 - Genitourinary: Nighttime urination reported once nightly. - Psychiatric: No current concerns noted. Physical Exam General: Cooperative, healthy appearing, comfortable, no acute distress and well developed Orientation: Patient oriented x3 Limitations: No limitations Head: Normal to inspection Ears: Hearing grossly normal bilaterally Nose: Normal external nose present Face and sinus: Normal facial exam Eyes: Appearance normal, both eyes and all related structures Neck: Normal visual inspection and Yes full ROM Respiratory: Normal respiratory effort and able to speak in complete sentences. Clear to auscultation bilaterally Cardiovascular: Regular rate and rhythm. Normal S1 and S2 GI: Normal to inspection. Soft to palpation and nontender Skin: No rashes or lesions noted Neuro: Patient oriented x3 Extremities: Normal to inspection Results - Labs: Thrombocytopenia with platelet count of 48; normal electrolytes; slightly elevated liver function test at 49; mildly elevated blood sugar. - Cholesterol: Total cholesterol reported at 116 in September 2023. - Imaging: CT scan completed in August 2023 for annual screening, follow-up advised. Plan The patient's management plan focused on maintaining strict control over his hypertension with lisinopril hydrochlorothiazide, as well as transitioning to Cialis for his erectile dysfunction due to side effects from Viagra. Encouraging abstinence from alcohol and cessation of smoking were emphasized, with detailed lifestyle modification plans discussed to improve overall health. Continuous monitoring of thrombocytopenia through regular follow-ups with hematology is essential. Postoperative care for his shoulder surgery will focus on maintaining mobility. Reinforcement of past advice on healthy diet, weight loss, and exercise was reiterated to support overall health maintenance. Patient was informed and verbally consented to the use of an ambient scribe for clinic note documentation during this visit. Discussion Notes In our discussion, I reinforced the importance of managing hypertension and thrombocytopenia through continued medication compliance and regular follow-ups. The considerable adverse effects from Viagra prompted the consideration of Cialis as a substitute for erectile dysfunction management. We reviewed smoking cessation benefits and discussed the risks of alcohol consumption on liver health, urging complete abstinence. Future CT follow-up will ensure any prior concerns are adequately monitored. For post-surgical care, I reiterated the importance of regular physical activity. I highlighted the significance of adopting a heart-healthy diet, maintaining hydration, and moderating caffeine intake, all of which are crucial for his long-term health management. Patient Instructions - Continue taking prescribed medications for hypertension. - Abstain from alcohol and smoking. - Consider changing erectile dysfunction medication to Cialis; do not exceed recommended dosage. - Increase physical activity post-shoulder surgery as advised. - Arrange for a follow-up CT scan as recommended. - Maintain a heart-healthy diet, stay hydrated, and watch caffeine intake. - Schedule regular check-ups for monitoring platelet counts and overall health. - Contact the office if experiencing new or worsening symptoms. Orders: Orders Comprehensive Met. Panel Today I10 - Essential (primary) hypertension Prostate Specific Antigen Scr Today I10 - Essential (primary) hypertension Complete Blood Count Auto Diff Today I10 - Essential (primary) hypertension Free T4 (Free Thyroxine) Today I10 - Essential (primary) hypertension Thyroid Stimulating Hormone Today I10 - Essential (primary) hypertension Lipid Panel Today E78.00 - Pure hypercholesterolemia, unspecified, I10 - Essential (primary) hypertension Vitamin B12 and Folate Today I10 - Essential (primary) hypertension Medications: New tadalafil administer approximately 30min before sexual activity; do not use more than 1 dose per 24hrs 20 mg PO DAILY PRN 14 tabs 1RF sexual activity N52.9 - Male erectile dysfunction, unspecified
== END 2024-11-10 11:51 | disposition home or self-care (01) ==
LOC: HO.HMCH 10:59
PROVIDERS: PCP Internal Medicine; Visit Provider Internal Medicine
DX: Z00.00 Encounter for general adult medical examination without abnormal findings (principal); K74.60 Unspecified cirrhosis of liver; D69.6 Thrombocytopenia, unspecified; Z68.37 Body mass index [BMI] 37.0-37.9, adult; F17.210 Nicotine dependence, cigarettes, uncomplicated; E66.9 Obesity, unspecified; I10 Essential (primary) hypertension; F10.10 Alcohol abuse, uncomplicated; K25.9 Gastric ulcer, unspecified as acute or chronic, without hemorrhage or perforation; M75.42 Impingement syndrome of left shoulder

== ENCOUNTER → 2024-11-10 10:58 | Outpatient (BNVA) | payer BC, SELFPAY | PROVIDERS: PCP Internal Medicine; Visit Provider Internal Medicine | DX: Z00.00 Encounter for general adult medical examination without abnormal findings (principal); E66.9 Obesity, unspecified; Z68.37 Body mass index [BMI] 37.0-37.9, adult; I10 Essential (primary) hypertension; F10.10 Alcohol abuse, uncomplicated; K74.60 Unspecified cirrhosis of liver; K25.9 Gastric ulcer, unspecified as acute or chronic, without hemorrhage or perforation; D69.6 Thrombocytopenia, unspecified; M75.42 Impingement syndrome of left shoulder; F17.210 Nicotine dependence, cigarettes, uncomplicated; Z79.899 Other long term (current) drug therapy | CPT/HCPCS: 96127 ==

== ENCOUNTER 2025-05-25 13:25 | Outpatient (AMB) | payer BC, SELFPAY ==
--- NOTE | 2025-05-25 13:28 | A.OFFPC_ITS ---
Vital Signs 05/25/25 13:29 Height 5 ft 8 in Weight 293 lb 4 oz BMI 44.6 BP 164/90 H Blood Pressure Location Lt brachial Position Sitting Pulse 120 H Pulse Source Pulse Oximeter Temp 97.5 F Temp Source Temporal Artery Scan Pulse Oximetry (%) 95 Oxygen Delivery Method Room Air Intake Visit Reasons: Swollen leg Allergies NSAIDS (Non-Steroidal Anti-Inflamma Allergy (Intermediate, Verified 05/25/25 13:31) Gastrointestinal Upset Medication List - Last Reconciled 05/25/25 by Karma Ramirez MD furosemide (Lasix) 20 mg PO QAM lisinopril-hydrochlorothiazide 20-25 mg 1 tab PO DAILY 90 days tadalafil 20 mg PO DAILY PRN Tobacco use date assessed: 05/25/25 Dental Screening Dental Screen Date: 05/25/25 Did you have a dental visit in the last 12 months?: Yes Did you have a dental problem in the last 6 months where you did not have access to dental care?: No Was dental information given to patient?: Patient has dentist HPI HPI Comments History of Present Illness Details Patient is a 59-year-old male with history of hypertension, liver cirrhosis presenting today with diffuse swelling including his abdomen, scrotum and bilateral lower extremity with 50 lb weight gain over the past 2 weeks. He reports that he ran out of his blood pressure medication for the past month and has not been taking it. He denies chest pain, shortness O of breath or palpitations. He reports that since he learned has liver cirrhosis via ultrasound back in August 2023, he has cut down his alcohol intake now at 3-4 beers daily. Currently smokes 4 cigarettes a day. Denies hematochezia, melena, recent travels. [facility] Medical History Alcohol abuse Thrombocytopenia Nicotine dependence, cigarettes, uncomplicated GERD (gastroesophageal reflux disease) Pulmonary nodule Gastric ulcer Liver cirrhosis Lumbar stress fracture Fractured coccyx Tubular adenoma of colon Erectile dysfunction Hypertension Obesity (BMI 30-39.9) Surgical History History of colonoscopy History of esophagogastroduodenoscopy (EGD) Family History Father No problems noted. Mother No problems noted. Brother Alcohol abuse Brother CVA (cerebral vascular accident) Social History Household Members: Significant Other Housing: House Do you presently have visiting nurse or other home services: No Alcohol intake: current Alcohol intake frequency: 3 or more drinks per day Alcohol type: beer and hard liquor Comment: daily 4 drinks Patient Tobacco Use Status: Current everyday Tobacco user Tobacco use type: Cigarette Cigarette Packs Per Day: 0.5 Cigarettes Per Day: 4 Years Smoked: 37 cigar a day e-Cigarette/Vaping Use: Never Used Second Hand Smoke Exposure: No Advance Directives Date on File: 11/21/22 service: No Current occupational status: employed 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 1. Little interest or pleasure in doing things: not at all 2. Feeling down, depressed, or hopeless: not at all 3. Trouble falling or staying asleep, or sleeping too much: not at all 4. Feeling tired or having little energy: not at all 5. Poor appetite or overeating: not at all 6. Feeling bad about yourself - or that you are a failure or have let yourself or your family down: not at all 7. Trouble concentrating on things, such as reading the newspaper or watching television: not at all 8. Moving or speaking so slowly that other people could have noticed. Or the opposite - being so fidgety or restless that you have been moving around a lot more than usual: not at all 9. Thoughts that you would be better off or of hurting yourself in some way: not at all Total score: 0 Depression Screening Interpretation: Negative Depression Screening Done: Yes Source: Developed by Drs. Hector Gamez, Kelly Bonilla, Fausto Recinos and colleagues, with an educational polly from [employer]. Thrive Questionnaire Date Thrive assessed: 11/10/24 I am a: Patient What is your living situation today?: I have a steady place to live Within the past 12 months, did the food you bought not last and you didn't have the money to get more?: Never true Within the past 12 months, did you worry whether your food would run out before you got money to buy more?: Never true Do you have trouble paying for medicines?: No Do you have trouble getting transportation to medical appointments?: No Do you have trouble paying your heating and electricity bill?: No Do you have trouble taking care of your child, family member or friend?: No Do you have trouble with day-to-day activities such as bathing, preparing meals, shopping, managing finances, etc.?: No Are you currently unemployed and looking for a job?: No Are you interested in more education?: No Please select the resources that you would like help with: None Currently or been in a relationship where the following occur: No concerns reported THRIVE Score: 0 AUDIT C Alcohol Use Questionnaire (AUDIT-C) 1. How often do you have a drink containing alcohol?: 4 or more times a week 2. How many drinks containing alcohol do you have on a typical day when you are drinking?: 3 or 4 3. How often do you have six or more drinks on one occasion?: Less than monthly Total Score: 6 GIULIANA-7 AMB Questionnaire GIULIANA-7 Date GIULIANA - 7 assessed: 05/25/25 Feeling nervous, anxious, or on edge: 0 = Not at all Not being able to stop or control worryin = Not at all Worrying too much about different things: 0 = Not at all Trouble relaxin = Not at all Being so restless that it is hard to sit still: 0 = Not at all Becoming easily annoyed or irritable: 0 = Not at all Feeling afraid as if something awful might happen: 0 = Not at all Total GIULIANA-7 score (0-4 normal; 5-9 mild; 10-14 moderate; 15-21 severe): 0 Source: Developed by Drs. Hector Gamez, Kelly Bonilla, Fausto Recinos and colleagues, with an educational polly from [employer]. GIULIANA-7 Assessment Billing GIULIANA-7 Assessment Tool: GIULIANA-7 Assessment 99316 Physical exam (Primary Care) Vital Signs: Last Vital Signs Temp 97.5 F 05/25/25 13:29 Pulse 120 H 05/25/25 13:29 BP 164/90 H 05/25/25 13:29 Pulse Ox 95 05/25/25 13:29 Oxygen Delivery Method Room Air 05/25/25 13:29 General: Well-appearing, alert and oriented ?3, in no acute distress. No scleral jaundice Cardiovascular: Regular rhythm, rapid rate, S1-S2 appreciated, no murmurs, rubs or gallops. Respiratory: Lungs clear to auscultation bilaterally, no wheezes, rales or rhonchi. Abdomen: Distended abdomen, nontender. Bilateral lower extremity 2+ edema BMI result Body Mass Index 44.6 Tobacco/Smoking Status: Tobacco use Status Tobacco use date assessed 05/25/25 05/25/25 13:32 Patient Tobacco Use Status Current everyday Tobacco 05/25/25 13:32 Tobacco use type Cigarette 05/25/25 13:32 e-Cigarette/Vaping Use Never Used 05/25/25 13:32 PHQ-9: PHQ-9 Score PHQ-9: Total score 0 05/25/25 13:39 Depression Screening Interpretation: Negative Thrive Assessment: Date of Thrive Assessment Date Thrive assessed 11/10/24 05/25/25 13:32 Currently or been in a relationship where the following occur: No concerns reported Coding Level of Care Code Est Pt Level 4 (61603) Diagnoses Weight gain with edema R63.5; R60.9 Alcoholic cirrhosis, unspecified whether ascites present K70.30 Ascites presence: unspecified Hepatic cirrhosis type: alcoholic cirrhosis Essential hypertension I10 Hypertension type: essential hypertension Additional Codes GIULIANA-7 Assessment Billing - GIULIANA-7 Assessment Tool: GIULIANA-7 Assessment 96957 ([id number]) Assessment & Plan Assessment & Plan (1) Weight gain with edema: Code(s): R63.5 - Abnormal weight gain; R60.9 - Edema, unspecified Category: Medical Plan: Patient presenting with diffuse swelling including his abdomen, scrotum and bilateral lower extremity edema with reportedly 50 lb weight gain over the past 2 weeks in the setting of history of liver cirrhosis and continued alcohol intake of 3-4 beers a day, raising concern for decompensated liver cirrhosis. Heart failure etiology is also on the differentials. -obtain CMP, A1c, TSH -obtain abdominal ultrasound -obtain echocardiogram to assess for possible heart failure -resume blood pressure medication which has hydrochlorothiazide in it. -start Lasix 20 mg daily -follow up in 2 weeks (2) Liver cirrhosis: Code(s): K74.60 - Unspecified cirrhosis of liver Category: Medical Qualifiers: Ascites presence: unspecified Hepatic cirrhosis type: alcoholic cirrhosis Qualified Code(s): K70.30 - Alcoholic cirrhosis of liver without ascites Plan: As above (3) Hypertension: Code(s): I10 - Essential (primary) hypertension Category: Medical Qualifiers: Hypertension type: essential hypertension Qualified Code(s): I10 - Essential (primary) hypertension Plan: Patient with history of hypertension on lisinopril-hydrochlorothiazide 20-25 mg daily. Reports running out of medication a month ago and has not been taking his medication. Blood pressure elevated today at 164/19 -resume blood pressure medication Orders: Orders Comprehensive Met. Panel Today R63.5 - Abnormal weight gain Hemoglobin A1c Today R60.9 - Edema, unspecified, R63.5 - Abnormal weight gain TSH reflex Free T4 Today R63.5 - Abnormal weight gain US abdomen complete Today K70.30 - Alcoholic cirrhosis of liver without ascites CA echo transthoracic complete Today R60.9 - Edema, unspecified, R63.5 - Abnormal weight gain Medications: New furosemide (Lasix) 20 mg PO QAM 30 tabs 0RF Refilled lisinopril-hydrochlorothiazide 20-25 mg 1 tab PO DAILY 90 tabs 0RF 90 days I10 - Essential (primary) hypertension
[2025-05-25 13:29] VITALS: BP 164/90; PULSE 120; TEMP 36.4; O2SAT 95; BMI 44.6
== END 2025-05-25 14:03 | disposition home or self-care (01) ==
LOC: HO.HMCH 13:25
PROVIDERS: PCP Internal Medicine; Visit Provider Student in an Organized Health Care Education/Training Program
DX: R63.5 Abnormal weight gain (principal); R60.9 Edema, unspecified; K70.30 Alcoholic cirrhosis of liver without ascites; I10 Essential (primary) hypertension

== ENCOUNTER → 2025-05-25 13:25 | Outpatient (BNVA) | payer BC, SELFPAY | PROVIDERS: PCP Internal Medicine; Visit Provider Student in an Organized Health Care Education/Training Program | DX: I10 Essential (primary) hypertension (principal); K70.30 Alcoholic cirrhosis of liver without ascites; R63.5 Abnormal weight gain; R60.9 Edema, unspecified | CPT/HCPCS: 96127 ==

== ENCOUNTER 2025-05-26 07:27 | Outpatient (REF) | payer BC, SELFPAY ==
--- OUTSIDE RECORDS SUMMARY | 2024-07-31 04:00 | XMS_ITS ---
Author Organization [facility] Address [address] [place] [phone] Care Team Providers Care Layboy Tender Name Role Phone Dalton Pisano MD Primary Care Provider Hector Virgen [phone] REASON FOR VISIT esophageal varices Encounters Encounter Location Date Provider Diagnosis [facility] [address] [place] [phone] 07/31/2024 Hector Alcantar Plan Of Treatment No Information Progress Notes * GRIJALVA ADRIANADOB:1965 (59 yo M)Acc No.[id number]:07/31/2024 Progress Notes Patient: ADRIANA WARD Provider: Rosio Alcantar MD :1965 A ge:58 Y S ex:Male Date:07/31/2024 Address:[address] [place], [place] [phone] Pcp:Dalton Pisano MD Subjective: * Chief Complaints: [...] 0 07/31/2024 Generated for Jessica hernandez/Shelly/Liosmitting on: 07/26/2024 07:30 AM EST
--- OUTSIDE RECORDS SUMMARY | 2024-12-03 10:00 | XMS_ITS ---
Author Organization [facility] Address [address] [place] [phone] Care Team Providers Care Management Retail Intern Name Role Phone Dalton Pisano MD Primary Care Provider Hector Virgen [phone] REASON FOR VISIT f/u appt from esophageal varices Encounters Encounter Location Date Provider Diagnosis [facility] [address] [place] [phone] 12/03/2024 Hector Alcantar Plan Of Treatment No Information Progress Notes * ADRIANA GRIJALVADOB:1965 (59 yo M)Acc No.[id number]:12/03/2024 Progress Notes Patient: ADRIANA WARD Provider: Rosio Alcantar MD :1965 A ge:59 Y S ex:Male Date:12/03/2024 Address:[address] [place], [place] [id number] Pcp:Dalton Pisano MD Subjective: * Chief Complaints: [...] 12/03/2024 Generated for Jessica hernandez/Shelly/eTulissessmitting on: 1 07/26/2024 07:30 AM EST
--- OUTSIDE RECORDS SUMMARY | 2025-03-20 09:40 | XMS_ITS ---
Author Organization [facility] Address [address] [place] [phone] Care Team Providers Care Lockstitch Shoulder Joiner Name Role Phone Dalton Pisano MD Primary Care Provider Hector Virgen [phone] REASON FOR VISIT Patient presents today for esophageal varices Encounters Encounter Location Date Provider Diagnosis [facility] [address] [place] [phone] 03/20/2025 Hector Alcantar Plan Of Treatment No Information Progress Notes * ADRIANA GRIJALVADOB:1965 (59 yo M)Acc No.[id number]:03/20/2025 Progress Notes Patient: ADRIANA WARD Provider: Rosio Alcantar MD :1965 A ge:59 Y S ex:Male Date:03/20/2025 Address:[address] [place], [place] [id number] Pcp:Dalton Pisano MD Subjective: * Chief Complaints: [...] 0 03/20/2025 Generated for Jessica hernandez/Shelly/eTransmitting on: 07/26/2024 07:30 AM EST
--- OUTSIDE RECORDS SUMMARY | 2025-05-26 07:30 | XMS_ITS | Encounter Summary ---
Author Organization [facility] Address [address] [place] [address] Care Team Providers Care Urgent Care Nurse Practitioner Name Role Phone Pcp, No Primary Care Provider Unavailabl e Encounter Details Date Type Department Care Team (Late st Contact Info) Description 07/15/2015 Scanned Document [address] [phone] Provider, Generic Social History Tobacco Use Types [...] Procedure Name Priority Date/Time Associated Diagnosis Comments [place] COMPRE AUDIOMETRY THRESHOLD EVAL SP RECOGNIJ 07/15/2015 documented in this encounter Results * [place] COMPREHENSIVE HEARING TEST (07/15/2015) Narrative 07/15/2015 Ordered by an unspecified provider. us Generic Provider [place] OTORHINOLARYNGOLOGIC Final R esult documented in this encounter Visit Diagnoses Not on filedocumented in this encounter Care Teams Urgent Care Nurse Practitioner Relationship Specialty Start Date End Date Pcp, No PCP - General General Medicine 07/14/15 documented as of this encounter
--- OUTSIDE RECORDS SUMMARY | 2025-05-26 07:30 | XMS_ITS | Clinical Summary ---
Author Organization [facility] Address [address] [place] [address] Care Team Providers Care Geomorphology Teacher Name Role Phone Pcp, No Primary Care [...] COVID-19 Vaccine ( - 2023-2 5 season) 2025 RSV Vaccine 50 years and old er and Patients (1 - 1-dose 75+ series) 2038 Hepatitis B Vaccines Aged Out No long er eligible based on patient's age to complete this topic Care Teams Geomorphology Teacher Relationship Specialty Start Date End Date Pcp, No PCP - General General Medicine 07/14/15
--- OUTSIDE RECORDS SUMMARY | 2025-05-26 07:30 | XMS_ITS | Patient Health Record ---
Author Organization [facility] Address [address] [place] [address] Care Team Providers Care Etiologist Name Role Phone Dalton Pisano MD Primary Care Provider Hector Virgen Unavailable [phone] Allergies No Known Allergies Reason For Referral Referring Provider First Name Dalton Referring Provider Last Name Norris Referring Provider Speciality Internal M edicine Referred Organization [facility] Referred Provider Hector Alcantar Referred Address [address],[place], [place],[address], Referred Provider Specialty Gastroentero logy General Notes Mirian Chan 024 04:15:14 PM EST > requested an o blue referral from Dr. Pisano's office for visit with Dr. Alcantar on [phone] (left message on answering machine) Referral Priority Routine Medications Medication SIG (Take, Route, Fr equency, Duration) Notes Start Date End Date Status Lisinopril 10 MG 1 tablet Orally Once a day Active Omeprazole 40 MG 1 Orally Once a day in the morning; Duration: 90 days 01/09/2023 Active Social History Tobacco [...] Problem Status W/U Status Risk Notes Problem Screening for malignant neoplasm of colon (914928897) Encounter for screening for malignant neoplasm of colon (Z12.11) Active confirmed Problem History of adenomatous polyp of colon (326898067) History of adenomatous polyp of colon (Z86.010) Active confirmed Problem Esophageal varices without bleeding (64169118) Esophageal varices without bleeding (I85.00) Active confirmed Problem Alcoholic cirrhosis (248861616) 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) Active confirmed Problem Portal hypertension (86360579) Portal hypertension (K76.6) Active confirmed Problem History of polyp of colon (situation) (280116260) History of colon polyps (Z86.010) Active confirmed Problem Esophageal varices (99640014) Esophageal varices (I85.00) Active confirmed Problem Gastritis (3524516) Gastritis (K29.70) Active confirmed Problem Anemia (017706555) Anemia, unspecified type (D64.9) Active confirmed Problem Pre-procedure evaluation check (514219859) Pre-procedural examination (Z01.818) Active confirmed Problem Gastric ulcer (785735166) Gastric ulcer (K25.9) Active confirmed Problem Diverticulosis of colon (066559590) Diverticulosis of colon (K57.30) Active confirmed Encounters Encounter Location Date Provider Diagnosis [facility] [address] [place] [phone] 07/30/2024 Hector Alcanatr [facility] [address] [place] [phone] 12/03/2024 Hector Alcantar [facility] [address] [place] [phone] 03/20/2025 Hector Alcantar Plan Of Treatment Pending Test [...] 12/26/2017 UPPER GI ENDOSCOPY 01/09/2023 COLONOSCOPY 01/09/2023 Insurance Providers Payer Name Payer Address Payer Phone Subscriber Number Group Number Insured Name Patient Relationship to Insured Coverage Start Date Coverage End Date Common [employer] CLAIMS [address] [place] [address] [id number] ADRIANA GRIJALVA Self - patient is the insured Medical (General) History Medical History History ICD Code Hypertension Denies [place],DM,CVA,Lung disease,renal dise ase Alcohol related cirrhosis se [...]
[2025-05-26 09:02] LABS: Alanine Aminotransferase 29 U/L (0-40); Albumin Level 2.9 g/dL (3.5-5.0); Alkaline Phosphatase 123 U/L (39-117); Anion Gap 9 (12-20); Aspartate Amino Transferase 52 U/L (5-37); Blood Urea Nitrogen 13 mg/dL (9-16); Calcium 8.1 mg/dL (8.4-10.2); Carbon Dioxide 24 mmol/L (22-29); Chloride 111 mmol/L (96-108); Estimated Glomerular Filt Rate > 60; Potassium 3.6 mmol/L (3.3-5.1); Sodium 140 mmol/L (135-145); Total Protein 5.6 g/dL (6.5-8.0)
== END 2025-05-26 07:28 | disposition home or self-care (01) ==
LOC: HO.LAB 07:27
PROVIDERS: PCP Internal Medicine; Visit Provider Student in an Organized Health Care Education/Training Program
DX: R63.5 Abnormal weight gain (principal); R60.9 Edema, unspecified; Z13.1 Encounter for screening for diabetes mellitus
CPT/HCPCS: 36415; 80053; 83036; 84443

== ENCOUNTER → 2025-05-27 10:52 | Outpatient (REF) | payer BC, SELFPAY ==
--- NOTE | 2025-05-27 10:54 | CA_ITS ---
Transthoracic Echocardiogram Patient (Last, First, Middle): Omar Resendez V Gender: M Date of : 1965 Age: 59 Procedure Date: 05/27/2025 Procedure Type: Transthoracic Echocardiogram Location: OP Height: 172. cm Weight: 132.91 kg BSA: 2.40 m2 Heart Rate: 95 bpm BP: 115 / 65 mmHg Hot Pipe Gauger: SYLVIA Bhakta MD: Karma Ramirez MD Grader Tender: Rd Caldwell MD Symptoms: R63.5 - Abnormal weight gain Study Quality: Fair ECG Rhythm: Tachycardia Conclusions: - 1. Normal LV ejection fraction of 65-70% 2. Possible early mild aortic stenosis Findings Left Ventricle Normal left ventricular size, thickness, and systolic function. The visually estimated ejection fraction is between 65-70%. Spectral Doppler is indicative of a normal filling pattern. Right Ventricle Normal right ventricular cavity size and systolic function. Atria The left atrium is normal in size. There is no evidence of interatrial shunt. The right atrium is normal in size. Aortic Valve The aortic valve was not well visualized. The peak aortic gradient is 17 mmHg.The mean gradient is 10 mmHg. There is no aortic valve regurgitation. Mitral Valve Likely normal mitral valve structure and function. There is trace mitral valve regurgitation. There is no mitral valve stenosis. Pulmonic Valve The pulmonic valve was not well visualized. Tricuspid Valve The tricuspid valve was not well visualized. Tricuspid regurgitation envelope is inadequate for calculation of right ventricular systolic pressure. Indeterminate right atrial pressure. Great Vessels The pulmonary artery was not well visualized. There is no dilatation of the ascending aorta measuring 3.40 cm. Venous The inferior vena cava was not well visualized. Pericardium/Pleural The pericardium was not well visualized. Prior Study Comparison No prior study available for comparison. Measurements 2D Linear Measurements IVSd: 0.97 0.6-0.9/0.6-1.0 cm LVIDd: 4.05 3.9-5.3/4.2-5.9 cm LVIDd Index: 1.69 2.4-3.2/2.2-3.1 cm/m2 LVIDs: 2.07 2.0-3.6 cm LVPWd: 0.98 0.7-1.1 cm LA Diam: 3.80 2.7-3.8/3.0-4.0 cm LAIDs Index: 1.58 1.5-2.3 cm/m2 LV Mass: 154.99 67-162/88-224 g LV Mass Index: 64.58 43-95/49-115 g/m2 LVOT Diam: 2.10 3.0+(-)1.3 cm 2D Systolic Function EF 4C: 65.60 >55% EF 2C: 65.20 >55% EF BiP: 65.90 >55% Mitral Valve MV Pk E: 0.86 MV PK A: 0.99 MV Decel Time: 123.00 E/A: 0.90 E'Lateral: 12.50 E'Medial: 9.36 E/E' Med: 9.20 E/E' Lat: 6.90 PHT: 36.00 MVA PHT: 6.11 Decel [place]: 6.96 Aortic Valve AoV Pk Germán: 2.07 AoV Mn Germán: 1.48 AoV VTI: 0.36 AoV Pk Grad: 17.00 Aov Mn Grad: 10.00 JR Cont.VTI: 2.21 LVOT LVOT Pk Germán: 1.33 LVOT Mn Germán: 0.92 LVOT VTI: 0.23 LVOT Pk Grad: 7.00 LVOT Mn Grad: 4.00 LVOT Diam: 2.10 LVOT Area: 3.46 Diastolic Function MV Pk E: 0.86 MV Pk A: 0.99 E/A: 0.90 E'Medial: 9.36 E/E' Med: 9.20 E' Laterial: 12.50 E/E' Lat: 6.90 Right Ventricle TAPSE (mm): 24.80 TVS' Germán: 19.00 Great Vessels Aorta Sinus of Valsalva: 3.50 2.0-3.5 cm Ao Asc: 3.40 2.1-3.4 cm Pulmonary Valve PV Pk Germán: 1.44 Peak PV Grad: 8.00 Updated in Other Vendor System with Status of Final Rd Caldwell MD electronically signed on 05/27/2025 2:57:32 PM with status of Final
--- OUTSIDE RECORDS SUMMARY | 2025-05-27 12:50 | XMS_ITS | Encounter Summary ---
Author Organization [facility] Address [address] [place] [address] Care Team Providers Care Mechanical Process Engineer Name Role Phone Pcp, No Primary Care Provider Unavailabl e Encounter Details Date Type Department Care Team (Late st Contact Info) Description 07/15/2015 Scanned Document [address] [phone] Provider, Generic Social History Tobacco Use Types [...] Procedure Name Priority Date/Time Associated Diagnosis Comments IN COMPRE AUDIOMETRY THRESHOLD EVAL SP RECOGNIJ 07/15/2015 documented in this encounter Results * IN COMPREHENSIVE HEARING TEST (07/15/2015) Narrative 07/15/2015 Ordered by an unspecified provider. us Generic Provider IN OTORHINOLARYNGOLOGIC Final R esult documented in this encounter Visit Diagnoses Not on filedocumented in this encounter Care Teams Mechanical Process Engineer Relationship Specialty Start Date End Date Pcp, No PCP - General General Medicine 07/14/15 documented as of this encounter
--- OUTSIDE RECORDS SUMMARY | 2025-05-27 12:50 | XMS_ITS | Clinical Summary ---
Author Organization [facility] Address [address] [place] [address] Care Team Providers Care Dope Dry House Operator Name Role Phone Pcp, No Primary [...] age to complete this topic Care Teams Dope Dry House Operator Relationship Specialty Start Date End Date Pcp, No PCP - General General Medicine 07/14/15
== END ==
LOC: HO.CARD 10:52
PROVIDERS: PCP Internal Medicine; Visit Provider Student in an Organized Health Care Education/Training Program
DX: R60.9 Edema, unspecified (principal); R63.5 Abnormal weight gain
CPT/HCPCS: 93306

== ENCOUNTER → 2025-05-27 10:54 | Outpatient (BNV) | payer BC, SELFPAY | PROVIDERS: PCP Internal Medicine; Visit Provider Internal Medicine Cardiovascular Disease | DX: I35.0 Nonrheumatic aortic (valve) stenosis (principal); R60.1 Generalized edema; R63.5 Abnormal weight gain | CPT/HCPCS: 93306 ==

== ENCOUNTER 2025-05-29 08:25 | Outpatient (REF) | payer BC, SELFPAY ==
--- OUTSIDE RECORDS SUMMARY | 2024-07-31 04:00 | XMS_ITS ---
Author Organization [facility] Address [address] [place] [phone] Care Team Providers Care Collections Rep Name Role Phone Dalton Pisano MD Primary Care Provider Hector Virgen [phone] REASON FOR VISIT esophageal varices Encounters Encounter Location Date Provider Diagnosis [facility] [address] [place] [phone] 07/31/2024 Hector Alcantar Plan Of Treatment No Information Progress Notes * VALENTINE ADRIANADOB:1965 (59 yo M)Acc No.[id number]:07/31/2024 Progress Notes Patient: ADRIANA WARD Provider: Rosio Alcantar MD :1965 A ge:58 Y S ex:Male Date:07/31/2024 Address:[address] [place], [place] [phone] Pcp:Dalton Pisano MD Subjective: * Chief Complaints: [...] MD Date: 0 07/31/2024 Generated for Jessica hernandez/Shelly/Nahomyitting on: 07/29/2024 08:55 AM EST
--- OUTSIDE RECORDS SUMMARY | 2024-12-03 10:00 | XMS_ITS ---
Author Organization [facility] Address [address] [place] [phone] Care Team Providers Care Branch Maker Name Role Phone Dalton Pisano MD Primary Care Provider Hector Virgen [phone] REASON FOR VISIT f/u appt from esophageal varices Encounters Encounter Location Date Provider Diagnosis [facility] [address] [place] [phone] 12/03/2024 Hector Alcantar Plan Of Treatment No Information Progress Notes * ADRIANA GRIJALVADOB:1965 (59 yo M)Acc No.[id number]:12/03/2024 Progress Notes Patient: ADRIANA WARD Provider: Rosio Alcantar MD :1965 A ge:59 Y S ex:Male Date:12/03/2024 Address:[address] [place], [place] [id number] Pcp:Dalton Pisano MD Subjective: * Chief Complaints: * 1 . F/u appt from esophageal varices. * Medical History: Objective: * Vitals: Assessment: Plan: * Treatment: * * The named appointment provid er may or may not be the originator of this progress note, and it is not deemed complete until electronically signed by the appointment provider. Sign off status: Pending * Provider: Rosio Alcantar MD Date: 0 12/03/2024 Generated for Jessica hernandez/Shelly/eTulissessmitting on: 1 07/29/2024 08:55 AM EST
--- OUTSIDE RECORDS SUMMARY | 2025-03-20 09:40 | XMS_ITS ---
Author Organization [facility] Address [address] [place] [phone] Care Team Providers Care Office Clinician Name Role Phone Dalton Pisano MD Primary Care Provider Hector Virgen [phone] REASON FOR VISIT Patient presents today for esophageal varices Encounters Encounter Location Date Provider Diagnosis [facility] [address] [place] [phone] 03/20/2025 Hector Alcantar Plan Of Treatment No Information Progress Notes * ADRIANA GRIJALVADOB:1965 (59 yo M)Acc No.[id number]:03/20/2025 Progress Notes Patient: ADRIANA WARD Provider: Rosio Alcantar MD :1965 A ge:59 Y S ex:Male Date:03/20/2025 Address:[address] [place], [place] [id number] Pcp:Dalton Pisano MD Subjective: * Chief Complaints: [...] 0 03/20/2025 Generated for Jessica hernandez/Shelly/eTransmitting on: 07/29/2024 08:56 AM EST
--- NOTE | ~2025-05-29 | US_ITS ---
CLINICAL HISTORY: K70.30 - Alcoholic cirrhosis of liver without ascites US abdomen complete Comparison: 08/24/2023 Findings: Visualized pancreas is normal. Aorta and inferior vena cava are normal caliber. The liver is borderline prominent in size and reveals increased echogenicity and irregular hepatic contour, suggesting cirrhosis.. Right lobe length is 16.2 cm. There is no intrahepatic bile duct dilatation. The common duct is 5 mm in diameter. The gallbladder is normal. There is no sonographic Govea sign. The main portal vein is antegrade The right kidney is normal, 11.7 cm in length. The left kidney is normal, 11.7 cm in length. The spleen is enlarged, measuring up to 18.1 cm in length. Bdirhuil-si-sewio volume ascites is present. Impression: 1. Zfigzoir-op-duhxl volume ascites. 2. Findings suggesting hepatic cirrhosis. 3. Splenomegaly as described above. This document has been electronically signed by: Jaswinder Mills MD on 05/30/2025 16:10:11
--- OUTSIDE RECORDS SUMMARY | 2025-05-29 08:56 | XMS_ITS | Encounter Summary ---
Author Organization [facility] Address [address] [place] [address] Care Team Providers Care Contracting Engineer Name Role Phone Pcp, No Primary Care Provider Unavailabl e Encounter Details Date Type Department Care Team (Late st Contact Info) Description 07/15/2015 Scanned Document [address] [phone] Provider, Generic Social History Tobacco Use Types [...] Procedure Name Priority Date/Time Associated Diagnosis Comments [place] COMPRE AUDIOMETRY THRESHOLD EVAL SP RECOGNIJ 07/15/2015 documented in this encounter Results * [place] COMPREHENSIVE HEARING TEST (07/15/2015) Narrative 07/15/2015 Ordered by an unspecified provider. us Generic Provider [place] OTORHINOLARYNGOLOGIC Final R esult documented in this encounter Visit Diagnoses Not on filedocumented in this encounter Care Teams Contracting Engineer Relationship Specialty Start Date End Date Pcp, No PCP - General General Medicine 07/14/15 documented as of this encounter
--- OUTSIDE RECORDS SUMMARY | 2025-05-29 08:56 | XMS_ITS | Clinical Summary ---
Author Organization [facility] Address [address] [place] [address] Care Team Providers Care Rubber Flap Tuber Machine Operator Name Role Phone Pcp, No Primary [...] age to complete this topic Care Teams Rubber Flap Tuber Machine Operator Relationship Specialty Start Date End Date Pcp, No PCP - General General Medicine 07/14/15
--- OUTSIDE RECORDS SUMMARY | 2025-05-29 08:56 | XMS_ITS | Patient Health Record ---
Author Organization [facility] Address [address] [place] [address] Care Team Providers Care Elevator Inspector Name Role Phone Dalton Pisano MD Primary Care Provider Hector iVrgen Unavailable [phone] Allergies No Known Allergies Reason For Referral Referring Provider First Name Dalton Referring Provider Last Name Norris Referring Provider Speciality Internal M edicine Referred Organization [facility] Referred Provider Hector Alcantar Referred Address [address],[place], [place],[address], Referred Provider Specialty Gastroentero logy General Notes Mirian Chan 024 04:15:14 PM EST > requested an o blue referral from Dr. Pisano's office for visit with Dr. Alcantar on [phone] (left message on answering machine) Referral Priority [...] Problem Screening for malignant neoplasm of colon (835371362) Encounter for screening for malignant neoplasm of colon (Z12.11) Active confirmed Problem History of adenomatous polyp of colon (434804806) History of adenomatous polyp of colon (Z86.010) Active confirmed Problem Esophageal varices without bleeding (55877631) Esophageal varices without bleeding (I85.00) Active confirmed Problem Alcoholic cirrhosis (900697905) 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) Active confirmed Problem Portal hypertension (36227359) Portal hypertension (K76.6) Active confirmed Problem History of polyp of colon (situation) (982667245) History of colon polyps (Z86.010) Active confirmed Problem Esophageal varices (22048063) Esophageal varices (I85.00) Active confirmed Problem Gastritis (1391715) Gastritis (K29.70) Active confirmed Problem Anemia (180177913) Anemia, unspecified type (D64.9) Active confirmed Problem Pre-procedure evaluation check (754981275) Pre-procedural examination (Z01.818) Active confirmed Problem Gastric ulcer (191119503) Gastric ulcer (K25.9) Active confirmed Problem Diverticulosis of colon (049250553) Diverticulosis of colon (K57.30) Active confirmed Encounters Encounter Location Date Provider Diagnosis [facility] [address] [place] [phone] 07/30/2024 Hector Alcantar [facility] [address] [place] [phone] 12/03/2024 Hector Alcantar [facility] [address] [place] [phone] 03/20/2025 Hector Alcantar Plan Of Treatment Pending [...] Insured Coverage Start Date Coverage End Date [employer] PROF[employer] CLAIMS [address] [place] [address] [id number] ADRIANA GRIJALVA Self - patient is the insured Medical (General) History Medical History History ICD Code Hypertension Denies [place],DM,CVA,Lung disease,renal dise ase Alcohol related cirrhosis se [...]
== END 2025-05-29 08:26 | disposition home or self-care (01) ==
LOC: HO.US 08:25
PROVIDERS: PCP Internal Medicine; Visit Provider Student in an Organized Health Care Education/Training Program
DX: K70.30 Alcoholic cirrhosis of liver without ascites (principal)
CPT/HCPCS: 76700

== ENCOUNTER → 2025-05-29 08:32 | Outpatient (BNV) | payer BC, SELFPAY | PROVIDERS: PCP Internal Medicine; Visit Provider Radiology Diagnostic Radiology | DX: K70.31 Alcoholic cirrhosis of liver with ascites (principal); R16.1 Splenomegaly, not elsewhere classified | CPT/HCPCS: 76700 ==

== ENCOUNTER 2025-06-05 08:56 | Day surgery (SDC) | payer BC, SELFPAY ==
--- OUTSIDE RECORDS SUMMARY | 2024-07-31 04:00 | XMS_ITS ---
Author Organization [facility] Address [address] [place] [phone] Care Team Providers Care Sustainable Products Marketing Manager Name Role Phone Dalton Pisano MD Primary Care Provider Hector Virgen [phone] REASON FOR VISIT esophageal varices Encounters Encounter Location Date Provider Diagnosis [facility] [address] [place] [phone] 07/31/2024 Hector Alcantar Plan Of Treatment No Information Progress Notes * VALENTINE ADRIANADOB:1965 (59 yo M)Acc No.[id number]:07/31/2024 Progress Notes Patient: ADRIANA WARD Provider: Rosio Alcantar MD :1965 A ge:58 Y S ex:Male Date:07/31/2024 Address:[address] [place], [place] [phone] Pcp:Dalton Pisano MD Subjective: * Chief Complaints: * 1 . Esophageal varices. * Medical History: Objective: * Vitals: Assessment: Plan: * Treatment: * * The named appointment provid er may or may not be the originator of this progress note, and it is not deemed complete until electronically signed by the appointment provider. Sign off status: Pending * Provider: Rosio Alcantar MD Date: 0 07/31/2024 Generated for Jessica hernandez/Shelly/Liosmitting on: 08/04/2024 12:14 PM EST
--- OUTSIDE RECORDS SUMMARY | 2024-12-03 10:00 | XMS_ITS ---
Author Organization [facility] Address [address] [place] [phone] Care Team Providers Care Hogshead Filler Name Role Phone Dalton Pisano MD Primary Care Provider Hector Virgen [phone] REASON FOR VISIT f/u appt from esophageal varices Encounters Encounter Location Date Provider Diagnosis [facility] [address] [place] [phone] 12/03/2024 Hector Alcantar Plan Of Treatment No Information Progress Notes * ADRAINA GRIJALVADOB:1965 (59 yo M)Acc No.[id number]:12/03/2024 Progress Notes Patient: ADRIANA WARD Provider: Rosio Alcantar MD :1965 A ge:59 Y S ex:Male Date:12/03/2024 Address:[address] [place], [place] [id number] Pcp:Dalton Pisano MD Subjective: * Chief Complaints: [...] 12/03/2024 Generated for Jessica hernandez/Shelly/eTulissessmitting on: 1 08/04/2024 12:14 PM EST
--- OUTSIDE RECORDS SUMMARY | 2025-03-20 09:40 | XMS_ITS ---
Author Organization [facility] Address [address] [place] [phone] Care Team Providers Care Missileman Name Role Phone Dalton Pisano MD Primary Care Provider Hector Virgen [phone] REASON FOR VISIT Patient presents today for esophageal varices Encounters Encounter Location Date Provider Diagnosis [facility] [address] [place] [phone] 03/20/2025 Hector Alcantar Plan Of Treatment No Information Progress Notes * ADRIANA GRIJALVADOB:1965 (59 yo M)Acc No.[id number]:03/20/2025 Progress Notes Patient: ADRIANA WARD Provider: Rosio Alcantar MD :1965 A ge:59 Y S ex:Male Date:03/20/2025 Address:[address] [place], [place] [id number] Pcp:Dalton Pisano MD Subjective: * Chief Complaints: * 1 . Patient presents today for esophageal varices. * Medical History: Objective: * Vitals: Assessment: Plan: * Treatment: * * The named appointment provid er may or may not be the originator of this progress note, and it is not deemed complete until electronically signed by the appointment provider. Sign off status: Pending * Provider: Rosio Alcantar MD Date: 0 03/20/2025 Generated for Jessica hernandez/Shelly/eTransmitting on: 08/04/2024 12:14 PM EST
--- OUTSIDE RECORDS SUMMARY | 2025-06-04 12:14 | XMS_ITS | Encounter Summary ---
Author Organization [facility] Address [address] [place] [address] Care Team Providers Care Title Lawyer Name Role Phone Pcp, No Primary Care Provider Unavailabl e Encounter Details Date Type Department Care Team (Late st Contact Info) Description 07/15/2015 Scanned Document [address] [phone] Provider, Generic Social History Tobacco Use Types [...] Procedure Name Priority Date/Time Associated Diagnosis Comments NM COMPRE AUDIOMETRY THRESHOLD EVAL SP RECOGNIJ 07/15/2015 documented in this encounter Results * NM COMPREHENSIVE HEARING TEST (07/15/2015) Narrative 07/15/2015 Ordered by an unspecified provider. us Generic Provider NM OTORHINOLARYNGOLOGIC Final R esult documented in this encounter Visit Diagnoses Not on filedocumented in this encounter Care Teams Title Lawyer Relationship Specialty Start Date End Date Pcp, No PCP - General General Medicine 07/14/15 documented as of this encounter
--- OUTSIDE RECORDS SUMMARY | 2025-06-04 12:14 | XMS_ITS | Clinical Summary ---
Author Organization [facility] Address [address] [place] [address] Care Team Providers Care Shop Hand Name Role Phone Pcp, No Primary Care [...] age to complete this topic Care Teams Shop Hand Relationship Specialty Start Date End Date Pcp, No PCP - General General Medicine 07/14/15
--- OUTSIDE RECORDS SUMMARY | 2025-06-04 12:14 | XMS_ITS | Patient Health Record ---
Author Organization [facility] Address [address] [place] [address] Care Team Providers Care Street Commissioner Name Role Phone Dalton Pisano MD Primary Care Provider Hector Virgen Unavailable [phone] Allergies No Known Allergies Reason For Referral Referring Provider First Name Dalton Referring Provider Last Name Norris Referring Provider Speciality Internal M edicine Referred Organization [facility] Referred Provider Hector Alcantar Referred Address [address],[place], [place],[address], Referred Provider Specialty Gastroentero logy General Notes iMrian Chan 024 04:15:14 PM EST > requested an o blue referral from Dr. Pisano's office for visit with Dr. Alcantar on [phone] (left message on answering machine) Referral Priority [...] Problem Screening for malignant neoplasm of colon (527654557) Encounter for screening for malignant neoplasm of colon (Z12.11) Active confirmed Problem History of adenomatous polyp of colon (613003587) History of adenomatous polyp of colon (Z86.010) Active confirmed Problem Esophageal varices without bleeding (97053467) Esophageal varices without bleeding (I85.00) Active confirmed Problem Alcoholic cirrhosis (482256753) 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) Active confirmed Problem Portal hypertension (35630811) Portal hypertension (K76.6) Active confirmed Problem History of polyp of colon (situation) (790069378) History of colon polyps (Z86.010) Active confirmed Problem Esophageal varices (63812876) Esophageal varices (I85.00) Active confirmed Problem Gastritis (5244537) Gastritis (K29.70) Active confirmed Problem Anemia (587424169) Anemia, unspecified type (D64.9) Active confirmed Problem Pre-procedure evaluation check (117532248) Pre-procedural examination (Z01.818) Active confirmed Problem Gastric ulcer (680541532) Gastric ulcer (K25.9) Active confirmed Problem Diverticulosis of colon (348509577) Diverticulosis of colon (K57.30) Active confirmed Encounters Encounter Location Date Provider Diagnosis [facility] [address] [place] [phone] 07/30/2024 Hector Alcantar [facility] [address] [place] [phone] 12/03/2024 Hector Alcantar [facility] [address] [place] [phone] 03/20/2025 Hector Alcantar Plan Of Treatment Pending [...] Insured Coverage Start Date Coverage End Date [employer] PROF[employer] CLAIM[employer] [address] [place] [address] [id number] ADRIANA GRIJALVA Self - patient is the insured Medical (General) History Medical History History ICD Code Hypertension Denies [place],DM,CVA,Lung disease,renal dise ase Alcohol related cirrhosis se [...]
--- NOTE | ~2025-06-05 | US_ITS ---
EXAMINATION: US GUIDED PARACENTESIS CLINICAL INFORMATION: Ascites COMPARISON: Previous abdominal ultrasound May 29, [address] of the abdomen and pelvis November 2022 TECHNIQUE: Procedure risks and benefits including bleeding, infection and low blood pressure were discussed with the patient and informed consent was obtained. The right lower quadrant was prepped and draped in the usual sterile fashion. The skin and soft tissues were anesthetized with 1% lidocaine plain. Using ultrasound guidance and a 5 Arabic Yueh catheter, access to the ascitic fluid was obtained. 5 L of jaswinder-colored fluid was removed. A diagnostic specimen was sent. FINDINGS: There is a large amount of ascites. Only 5 L of fluid was removed at that as this is the patient's first paracentesis. Postprocedure ultrasound demonstrated residual ascitic fluid following the procedure. US/US paracentesis abd w/image IMPRESSION: Ultrasound-guided paracentesis. Electronically signed by: Lanette Morgan MD 06/05/2025 04:19 PM [facility]
--- NOTE | 2025-06-05 09:09 | PC.NURSE ---
CALLED ULTRASOUND FOR PARACENTESIS.
[2025-06-05 09:18] VITALS: BMI 44.1
[2025-06-05 09:25] LABS: MANUAL DIFF FLAG NO
[2025-06-05 09:27] LABS: Hematocrit 33.4 % (42.0-52.0); Hemoglobin 11.6 g/dl (14.0-18.0); Imm Gran Abs Auto 0.02 X10*3/uL (0.00-0.03); Imm Gran Pct Auto 0.3 % (0.0-0.4); Lymphocytes Absolute Auto 1.4 X10*3/uL (1.2-4.9); Mean Corpuscular HGB Conc 34.7 g/dl (31.0-36.0); Mean Corpuscular Hemoglobin 32.8 pg (27.0-33.0); Mean Corpuscular Volume 94.4 fL (80.0-98.0); NRBC Abs Auto 0.000 X10*3/uL (0.0-0.012); NRBC Pct Auto 0.0 /100WBC (0.0-0.2); Red Blood Count 3.54 X10*6/uL (4.60-5.80); White Blood Count 6.5 X10*3/uL (4.8-10.8)
[2025-06-05 09:28] LABS: Platelet Count 73 X10*3/uL (160-400)
[2025-06-05 09:30] VITALS: BP 126/79; PULSE 103; RESP 16; TEMP 36.4; O2SAT 97
[2025-06-05 11:10] VITALS: BP 115/64; PULSE 89; RESP 16; TEMP 37.2; O2SAT 97
[2025-06-05 11:25] VITALS: BP 110/71; PULSE 89; RESP 16; O2SAT 98
[2025-06-05] MEDS: Lidocaine HCl 1 % MPF 5 ML VIAL SUBCUT (11:31)
[2025-06-05 11:40] VITALS: BP 109/58; PULSE 83; RESP 18; O2SAT 98
[2025-06-05 11:48] LABS: MN% 65.9 %; PMN% 34.1 %; WBC Peritoneal Fluid 0.303 X10*3/uL
[2025-06-05 11:55] VITALS: BP 115/65; PULSE 87; RESP 18; TEMP 36.8; O2SAT 98
[2025-06-05 12:55] LABS: BF Shift QC OK YES; Lymphocyte Peritoneal Fl 30 %; Monocytes Peritoneal Fl 6 %; Neutrophils Peritoneal Fluid 33 %; Other Peritioneal Fl 31 %
== END 2025-06-05 12:20 | disposition home or self-care (01) ==
PROVIDERS: Radiology Diagnostic Radiology; PCP Internal Medicine; Visit Provider Student in an Organized Health Care Education/Training Program
DX: R18.8 Other ascites (principal); K74.60 Unspecified cirrhosis of liver; M79.89 Other specified soft tissue disorders; F10.10 Alcohol abuse, uncomplicated; F17.210 Nicotine dependence, cigarettes, uncomplicated; R91.1 Solitary pulmonary nodule; I10 Essential (primary) hypertension; D69.6 Thrombocytopenia, unspecified; E66.9 Obesity, unspecified; Z68.41 Body mass index [BMI] 40.0-44.9, adult; Z79.899 Other long term (current) drug therapy; Z88.6 Allergy status to analgesic agent
CPT/HCPCS: 36415; 49083; 82945; 83615; 84157; 85025; 87070; 87073; 87205; 88112; 88305; 89051; J2003

== ENCOUNTER → 2025-06-05 09:58 | Outpatient (BNV) | payer BC, SELFPAY | PROVIDERS: PCP Internal Medicine; Visit Provider Radiology Diagnostic Radiology | DX: R18.8 Other ascites (principal) | CPT/HCPCS: 49083 ==

== ENCOUNTER 2025-06-09 14:23 | Outpatient (AMB) | payer BC, SELFPAY ==
--- NOTE | 2025-06-09 14:29 | MHC.PC.OV ---
Vital Signs 06/09/25 14:30 Height 5 ft 8 in Weight 261 lb 6 oz BMI 39.7 BP 98/62 Blood Pressure Location Lt brachial Position Sitting Respiration 18 Pulse 101 H Pulse Source Pulse Oximeter Temp Source Temporal Artery Scan Pulse Oximetry (%) 96 Oxygen Delivery Method Room Air Intake Visit Reasons: f/u Guest Services Manager Required: No Accompanied by: Self / Same As Patient Allergies Barbiturates Allergy (Severe, Verified 06/09/25 14:44) Vomiting NSAIDS (Non-Steroidal Anti-Inflamma Allergy (Intermediate, Verified 06/09/25 14:44) Gastrointestinal Upset Tobacco use date assessed: 06/09/25 Dental Screening Dental Screen Date: 06/09/25 Did you have a dental visit in the last 12 months?: Yes Did you have a dental problem in the last 6 months where you did not have access to dental care?: No Was dental information given to patient?: Patient has dentist HPI HPI Comments History of Present Illness Details The patient is a 59-year-old male presenting for follow-up for management of liver cirrhosis and ascites. Patient was last seen in clinic on 05/25/2025 for diffuse swelling abdomen and lower extremity with 50 lb weight gain. He was started on furosemide 20 mg during that visit. Further workup with abdominal ultrasound revealed findings suggestive of hepatic cirrhosis and uyyvstks-lk-bemnv volume ascites with splenomegaly. Patient was also worked up with an echocardiogram that is within normal limit. Subsequently, furosemide was increased to 40 mg daily and spironolactone 100 mg daily was added to his regimen. Patient had paracentesis done on 06/05/2025. Pathology negative for malignant cells Today, patient reports feeling better after they took out 5 L of fluid from his abdomen. Swelling of legs has come down as well. Reports compliance with medications as prescribed. Patient reports significant reduction in his alcohol consumption from 3-4 beers daily to 4 beers over the past 2 weeks. In regards to hypertension, he is on lisinopril-hydrochlorothiazide 20-25 mg that was resumed during last visit, and continues to take it. Of note, patient ran out of blood pressure medication for a month prior to previous visit. Blood pressure today is 98/62. Denies any dizziness, lightheadedness, chest pain or shortness of breath. [facility] Medical History Alcohol abuse Thrombocytopenia Nicotine dependence, cigarettes, uncomplicated GERD (gastroesophageal reflux disease) Pulmonary nodule Gastric ulcer Liver cirrhosis Lumbar stress fracture Fractured coccyx Tubular adenoma of colon Erectile dysfunction Hypertension Obesity (BMI 30-39.9) Surgical History History of colonoscopy History of esophagogastroduodenoscopy (EGD) Family History Father No problems noted. Mother No problems noted. Brother Alcohol abuse Brother CVA (cerebral vascular accident) Social History Household Members: Significant Other Housing: House Do you presently have visiting nurse or other home services: No Alcohol intake: current Alcohol intake frequency: 3 or more drinks per day Alcohol type: beer and hard liquor Comment: daily 4 drinks Patient Tobacco Use Status: Current everyday Tobacco user Tobacco use type: Cigarette Cigarette Packs Per Day: 0.5 Cigarettes Per Day: 4 Years Smoked: 37 cigar a day e-Cigarette/Vaping Use: Never Used Second Hand Smoke Exposure: No Advance Directives Date on File: 11/21/22 service: No Current occupational status: employed 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[employer] , 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 Cognitive needs: No Hearing needs: No Vision needs: Yes Questionnaire Thrive Questionnaire Date Thrive assessed: 06/09/25 I am a: Patient What is your living situation today?: I have a steady place to live Within the past 12 months, did the food you bought not last and you didn't have the money to get more?: Never true Within the past 12 months, did you worry whether your food would run out before you got money to buy more?: Never true Do you have trouble paying for medicines?: No Do you have trouble getting transportation to medical appointments?: No Do you have trouble paying your heating and electricity bill?: No Do you have trouble taking care of your child, family member or friend?: No Do you have trouble with day-to-day activities such as bathing, preparing meals, shopping, managing finances, etc.?: No Are you currently unemployed and looking for a job?: No Are you interested in more education?: No Please select the resources that you would like help with: None Currently or been in a relationship where the following occur: No concerns reported THRIVE Score: 0 AUDIT C Alcohol Use Questionnaire (AUDIT-C) 1. How often do you have a drink containing alcohol?: 4 or more times a week 2. How many drinks containing alcohol do you have on a typical day when you are drinking?: 3 or 4 3. How often do you have six or more drinks on one occasion?: Less than monthly Total Score: 6 GIULIANA-7 AMB Questionnaire GIULIANA-7 Date GIULIANA - 7 assessed: 05/25/25 Source: Developed by Drs. Hector Gamez, Kelly Bonilla, Fausto Recinos and colleagues, with an educational polly from [employer]. Physical exam (Primary Care) Vital Signs: Last Vital Signs Pulse 101 H 06/09/25 14:30 Resp 18 06/09/25 14:30 BP 98/62 06/09/25 14:30 Pulse Ox 96 06/09/25 14:30 Oxygen Delivery Method Room Air 06/09/25 14:30 General: Well-appearing, alert, oriented ?3, in no acute distress. Cardiovascular: RRR, S1-S2 appreciated, no murmurs, rubs or gallops. Respiratory: Lungs clear to auscultation bilaterally, no wheezes, rales or rhonchi. Abdomen: Soft, nontender. Normoactive bowel sounds. Distended but much improved from prior S s/p paracentesis. Lower extremity edema improved BMI result Body Mass Index 39.7 Tobacco/Smoking Status: Tobacco use Status Tobacco use date assessed 06/09/25 06/09/25 14:36 Patient Tobacco Use Status Current everyday Tobacco 06/09/25 14:36 Tobacco use type Cigarette 06/09/25 14:36 e-Cigarette/Vaping Use Never Used 06/09/25 14:36 Thrive Assessment: Date of Thrive Assessment Date Thrive assessed 06/09/25 06/09/25 14:36 Currently or been in a relationship where the following occur: No concerns reported Coding Level of Care Code Est Pt Level 4 (76046) Diagnoses Alcoholic cirrhosis, unspecified whether ascites present K70.30 Hepatic cirrhosis type: alcoholic cirrhosis Ascites presence: unspecified Essential hypertension I10 Hypertension type: essential hypertension Assessment & Plan Assessment & Plan (1) Liver cirrhosis: Code(s): K74.60 - Unspecified cirrhosis of liver Category: Medical Qualifiers: Hepatic cirrhosis type: alcoholic cirrhosis Ascites presence: unspecified Qualified Code(s): K70.30 - Alcoholic cirrhosis of liver without ascites Plan: Patient presented with ascites secondary to decompensated liver cirrhosis on 05/25/2025 s/p paracentesis on 06/05/2025. He feels better after procedure with improvement in his edema. Of note, patient has not been able to go to work due to current medical condition. Continue on Lasix 40 mg and spironolactone 100 mg daily. CMP from May 26 revealed elevated AST 52 and total bilirubin of 2.5 with low albumin. will repeat CMP to monitor liver and kidney function. Patient advised to quit alcohol. GI referral provided for further management. Patient will follow up with Dr Pisano in a month. (2) Hypertension: Code(s): I10 - Essential (primary) hypertension Category: Medical Qualifiers: Hypertension type: essential hypertension Qualified Code(s): I10 - Essential (primary) hypertension Plan: Continue on lisinopril-hydrochlorothiazide 20-25 mg. Denies any dizziness, lightheadedness, chest pain or shortness breath. Orders: Orders Comprehensive Met. Panel Today K74.60 - Unspecified cirrhosis of liver Referrals Gastroenterology Referral K74.60 - Unspecified cirrhosis of liver
[2025-06-09 14:30] VITALS: BP 98/62; PULSE 101; RESP 18; O2SAT 96; BMI 39.7
== END 2025-06-09 15:08 | disposition home or self-care (01) ==
LOC: HO.HMCH 14:24
PROVIDERS: PCP Internal Medicine; Visit Provider Student in an Organized Health Care Education/Training Program
DX: K70.30 Alcoholic cirrhosis of liver without ascites (principal); I10 Essential (primary) hypertension

== ENCOUNTER 2025-07-09 15:34 | Outpatient (AMB) | payer BC, SELFPAY ==
--- OUTSIDE RECORDS SUMMARY | 2024-07-31 04:00 | XMS_ITS ---
Author Organization [facility] Address [address] [place] [phone] Care Team Providers Care Financial Services Manager Name Role Phone Dalton Pisano MD Primary Care Provider Hector Virgen [phone] REASON FOR VISIT esophageal varices Encounters Encounter Location Date Provider Diagnosis [facility] [address] [facility] [address] [place] [phone] 07/31/2024 Hector Alcantar Plan Of Treatment Next Appt Details Provider Name:Hector Alcantar , 07/29/2025 02:00:00 PM, [address], [address], [place], [address], Progress Notes * ADRIANA GRIJALVADOB:1965 (59 yo M)Acc No.[id number]:07/31/2024 Progress Notes Patient: ADRIANA WARD Provider: Rosio Alcantar MD :1965 A ge:58 Y S ex:Male Date:07/31/2024 Address:[address] [place] [address] Pcp:Dalton Pisano MD Subjective: * Chief Complaints: * E sophageal varices * The named appointment provid er may or may not be the originator of this progress note, and it is not deemed complete until electronically signed by the appointment provider. Sign off status: Pending * Provider: Rosio Alcantar MD Date: 0 07/31/2024 Generated for Printi ng/Faxing/eTransmitting on: 09/09/2024 07:26 PM EST
--- OUTSIDE RECORDS SUMMARY | 2025-03-20 09:40 | XMS_ITS ---
Author Organization [facility] Address [address] [place] [address] Care Team Providers Care Safety Glass Installer Name Role Phone Dalton Pisano MD Primary Care Provider Hector Virgen [phone] REASON FOR VISIT Patient presents today for esophageal varices Encounters Encounter Location Date Provider Diagnosis [facility] [address] [place] [phone] 03/20/2025 Hector Alcantar Plan Of Treatment Next Appt Details Provider Name:Hector Alcantar , 07/29/2025 02:00:00 PM, [address], [address], [place], [address], Progress Notes * ADRIANA GRIJALVADOB:1965 (59 yo M)Acc No.[id number]:03/20/2025 Progress Notes Patient: ADRIANA WARD Provider: Rosio Alcantar MD :1965 A ge:59 Y S ex:Male Date:03/20/2025 Address:[address] [place] [address] Pcp:Dalton Pisano MD Subjective: * Chief Complaints: * P atient presents today for esophageal varices Billing Information: * Procedure Codes: * The named appointment provid er may or may not be the originator of this progress note, and it is not deemed complete until electronically signed by the appointment provider. Sign off status: Pending * Provider: Rosio Alcantar MD Date: 0 03/20/2025 Generated for Celinai mary/Shelly/eTransmitting on: 1 09/09/2024 07:26 PM EST
--- NOTE | 2025-07-09 15:39 | A.OFFPC_ITS ---
Vital Signs 07/09/25 15:48 Height 5 ft 8 in Weight 230 lb BMI 35.0 BP 100/50 L Blood Pressure Location Lt brachial Position Sitting Respiration 18 Pulse 82 Pulse Source Pulse Oximeter Temp Source Temporal Artery Scan Pulse Oximetry (%) 100 Oxygen Delivery Method Room Air Intake Visit Reasons: 4 week f/u Software Configuration Analyst Required: No Accompanied by: Self / Same As Patient Allergies Barbiturates Allergy (Severe, Verified 07/09/25 15:54) Vomiting NSAIDS (Non-Steroidal Anti-Inflamma Allergy (Intermediate, Verified 07/09/25 15:54) Gastrointestinal Upset Medication List - Last Reconciled 07/09/25 by Dalton Pisano MD carvedilol 3.125 mg PO BID furosemide (Lasix) 40 mg PO DAILY spironolactone 100 mg PO DAILY tadalafil 20 mg PO DAILY PRN Tobacco use date assessed: 07/09/25 Dental Screening Dental Screen Date: 07/09/25 Did you have a dental visit in the last 12 months?: Yes Did you have a dental problem in the last 6 months where you did not have access to dental care?: No Was dental information given to patient?: Patient has dentist HPI HPI Comments History of Present Illness Details History of Present Illness The patient is a 59 year old male presenting for follow-up of his liver cirrhosis. He has a history of liver cirrhosis with ascites, and in May, he experienced a 50-pound weight gain due to fluid accumulation, which led to the initiation of furosemide. He recently underwent a procedure to drain 5 liters of fluid from his abdomen and reports he has continued to lose weight since. His past medical history is significant for obesity, hypertension, ulcers, tubular adenoma of the colon status-post colonoscopy in February 2023, alcohol abuse, and nicotine dependence. He notes a 30-pound weight loss over one month. His last blood work revealed anemia with a hemoglobin of 11.6 and thrombocytopenia, with normal electrolytes and renal function. Health Maintenance - The patient has been strongly advised to abstain from alcohol. - Follow-up with gastroenterology is adv ised. - Diet and exercise were discussed. - The patient's vaccinations are up to d ate. Social History - Alcohol Use: The patient has a history of alcohol abuse and reports he still has - Nicotine Dependence: The patient has a history of nicotine dependence. - Employment: The patient reports workin g 10-12 hour days. - Sleep: The patient reports getting onl y about 4 hours of sleep per night. Results - Labs: Last blood work revealed anemia (hemoglobin 11.6) and thrombocytopenia, with good electrolytes and renal function. - Procedures: A recent paracentesis steffanie lili 5 liters of abdominal fluid. - Imaging: An ultrasound was performed o n May 30. - Endoscopy: A colonoscopy in February found a tubular adenoma. [facility] Medical History Alcohol abuse Thrombocytopenia Nicotine dependence, cigarettes, uncomplicated GERD (gastroesophageal reflux disease) Pulmonary nodule Gastric ulcer Liver cirrhosis Lumbar stress fracture Fractured coccyx Tubular adenoma of colon Erectile dysfunction Hypertension Obesity (BMI 30-39.9) Surgical History History of colonoscopy History of esophagogastroduodenoscopy (EGD) Family History Father No problems noted. Mother No problems noted. Brother Alcohol abuse Brother CVA (cerebral vascular accident) Social History Household Members: Significant Other Housing: House Do you presently have visiting nurse or other home services: No Alcohol intake: current Alcohol intake frequency: 3 or more drinks per day Alcohol type: beer and hard liquor Comment: daily 4 drinks Patient Tobacco Use Status: Current everyday Tobacco user Tobacco use type: Cigarette Cigarette Packs Per Day: 0.5 Cigarettes Per Day: 4 Years Smoked: 37 cigar a day e-Cigarette/Vaping Use: Never Used Second Hand Smoke Exposure: No Advance Directives Date on File: 11/21/22 service: No Current occupational status: employed 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[employer] , 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 Cognitive needs: No Hearing needs: No Vision needs: Yes Questionnaire Thrive Questionnaire Date Thrive assessed: 07/09/25 I am a: Patient What is your living situation today?: I have a steady place to live Within the past 12 months, did the food you bought not last and you didn't have the money to get more?: Never true Within the past 12 months, did you worry whether your food would run out before you got money to buy more?: Never true Do you have trouble paying for medicines?: No Do you have trouble getting transportation to medical appointments?: No Do you have trouble paying your heating and electricity bill?: No Do you have trouble taking care of your child, family member or friend?: No Do you have trouble with day-to-day activities such as bathing, preparing meals, shopping, managing finances, etc.?: No Are you currently unemployed and looking for a job?: No Are you interested in more education?: No Currently or been in a relationship where the following occur: No concerns reported THRIVE Score: 0 GIULIANA-7 AMB Questionnaire GIULIANA-7 Date GIULIANA - 7 assessed: 05/25/25 Source: Developed by Drs. Hector Gamez, Kelly Bonilla, Fausto Recinos and colleagues, with an educational polly from [employer]. Review of Systems Narrative Review of Systems - Constitutional: Reports continued weight loss. - Abdominal: Denies re-accumulation of abdominal fluid. - Integumentary: Reports a resolving rash on his arm, which he attributes to a chemical burn from work. - Neurological: Reports sleeping only 4 hours per night and experiencing sudden onset of sleep during the day. Physical exam (Primary Care) Vital Signs: Last Vital Signs Pulse 82 07/09/25 15:48 Resp 18 07/09/25 15:48 BP 100/50 L 07/09/25 15:48 Pulse Ox 100 07/09/25 15:48 Oxygen Delivery Method Room Air 07/09/25 15:48 BMI result Body Mass Index 35.0 Tobacco/Smoking Status: Tobacco use Status Tobacco use date assessed 07/09/25 07/09/25 15:56 Patient Tobacco Use Status Current everyday Tobacco 07/09/25 15:42 Tobacco use type Cigarette 07/09/25 15:42 e-Cigarette/Vaping Use Never Used 07/09/25 15:42 Thrive Assessment: Date of Thrive Assessment Date Thrive assessed 07/09/25 07/09/25 15:56 Currently or been in a relationship where the following occur: No concerns reported Narrative Physical Exam - Vitals: Blood pressure is 100/50 mmHg. - Skin: Spider angiomata are present, noted as a sign of liver disease. Const General: alert; No acute distress Eyes Conjunctivae: conjunctivae normal Resp Auscultation: clear to auscultation bilaterally Cardio Rate: regular rate Rhythm: regular rhythm GI Inspection: Yes normal to inspection Extrem General: Yes normal to inspection and No edema Coding Level of Care Code Est Pt Level 4 (24269) Add On Problem Visit Only Diagnoses Alcohol abuse F10.10 Essential hypertension I10 Hypertension type: essential hypertension Obesity (BMI 30-39.9) E66.9 Alcoholic cirrhosis, unspecified whether ascites present K70.30 Ascites presence: unspecified Hepatic cirrhosis type: alcoholic cirrhosis Ascites R18.8 Nicotine dependence, cigarettes, uncomplicated F17.210 Assessment & Plan Assessment & Plan (1) Alcohol abuse: Code(s): F10.10 - Alcohol abuse, uncomplicated Category: Social Hx Plan: Patient is strongly advised to abstain from alcohol (2) Hypertension: Code(s): I10 - Essential (primary) hypertension Category: Medical Qualifiers: Hypertension type: essential hypertension Qualified Code(s): I10 - Essential (primary) hypertension Plan: Continue with blood pressure medication. Decrease salt intake and exercise concern that the blood pressure now is low on lisinopril hydrochlorothiazide but does have diuretics on (3) Obesity (BMI 30-39.9): Code(s): E66.9 - Obesity, unspecified Category: Medical Plan: Diet and exercise (4) Liver cirrhosis: Code(s): K74.60 - Unspecified cirrhosis of liver Category: Medical Qualifiers: Ascites presence: unspecified Hepatic cirrhosis type: alcoholic cirrhosis Qualified Code(s): K70.30 - Alcoholic cirrhosis of liver without ascites Plan: Patient is strongly advised to abstain from alcohol, advised to follow-up with Gastroenterology (5) Ascites: Code(s): R18.8 - Other ascites Category: Medical Plan: Patient just recently had paracentesis (6) Nicotine dependence, cigarettes, uncomplicated: Comment: (onset 11 for 37 years at 1 ppd - 30+PYH) please can August 2023 Code(s): F17.210 - Nicotine dependence, cigarettes, uncomplicated Category: Medical Plan: Patient is strongly advised to stop Plan Plan Patient was informed and verbally consented to the use of an ambient scribe for clinic note documentation during this visit. 1. Liver Cirrhosis The patient's ascites has improved following paracentesis, and he continues to lose weight. He has been counseled on the importance of following up with gastroenterology to screen for esophageal varices. The dose of furosemide will be decreased to 20 mg and spironolactone to 50 mg. A follow-up ultrasound will be ordered to monitor his liver. A comprehensive set of lab work has been ordered. 2. Hypertension The patient's blood pressure is currently low at 100/50 mmHg. Due to the hypotension, lisinopril/hydrochlorothiazide will be discontinued. Low-dose carvedilol will be initiated to help decrease pressure in the esophageal blood vessels. 3. Alcohol Abuse The patient reports he continues to drink alcohol occasionally. He was strongly advised to abstain completely from alcohol, including non-alcoholic versions, due to the risk of worsening liver function and the potential need for a liver transplant. 4. Insomnia The patient reports poor sleep, getting only about 4 hours per night. A prescription for a sleep aid, similar to Benadryl, will be provided for as- needed use at nighttime. Discussion Notes I explained to the patient that his liver is not functioning properly, causing fluid to accumulate in his abdomen (ascites). I detailed how this dysfunction forces blood to find alternate routes back to the heart, which can enlarge blood vessels in the esophagus, creating varices that are at risk for life-threatening bleeding. I emphasized the importance of a follow-up with gastroenterology to screen for these varices. We discussed his current low blood pressure of 100/50 mmHg, and I explained that I would be stopping his lisinopril-hydrochlorothiazide. I informed him I would be starting low-dose carvedilol, a different type of blood pressure medication that specifically helps reduce pressure in the esophageal vessels. I strongly counseled the patient that complete abstinence from alcohol is critical, as continued use will worsen his liver disease and lead toward needing a liver transplant, a path I described as scary and complicated. I also addressed his poor sleep and sent a prescription for an as-needed sleep aid. I ordered a full panel of blood work and a follow-up liver ultrasound, and we will follow up on these results. Patient Instructions - Stop taking your lisinopril/hydrochlorothiazide blood pressure medication. - Start taking the new medication, carvedilol, as prescribed. - I have sent new prescriptions for your water pills with lower doses. Take furosemide 20 mg and spironolactone 50 mg as directed. - You must stop drinking all alcohol. - It is very important that you call and get back to the stomach specialist (Dr. Alcantar) for your appointment. - Please go get your blood work done. The lab is open on Saturdays. - We will schedule another ultrasound to look at your liver. - Take the new sleep medication I prescribed at nighttime only when you need it to help you sleep. - Continue to weigh yourself every day. Orders: Orders Hepatitis A,B,C Profile Today K70.30 - Alcoholic cirrhosis of liver without ascites Alpha Fetoprotein Today K70.30 - Alcoholic cirrhosis of liver without ascites Prothrombin Time INR Today K70.30 - Alcoholic cirrhosis of liver without ascites UA CC w/rflx Micro + Cult Today K70.30 - Alcoholic cirrhosis of liver without ascites, R30.0 - Dysuria US abdomen comp w elastography Today K70.30 - Alcoholic cirrhosis of liver without ascites Ferritin Today K70.30 - Alcoholic cirrhosis of liver without ascites IRON PROFILE Today K70.30 - Alcoholic cirrhosis of liver without ascites Reticulocyte Count Today K70.30 - Alcoholic cirrhosis of liver without ascites Medications: New carvedilol must administer with a meal/food 3.125 mg PO BID 60 tabs 4RF K70.30 - Alcoholic cirrhosis of liver without ascites doxylamine succinate 25 mg PO BEDTIME PRN 30 tabs 0RF sleep K70.30 - Alcoholic cirrhosis of liver without ascites Changed From furosemide (Lasix) 40 mg PO DAILY 30 tabs 0RF liver cirrhosis K70.30 - Alcoholic cirrhosis of liver without ascites To furosemide 20 mg PO DAILY 30 tabs 3RF liver cirrhosis K70.30 - Alcoholic cirrhosis of liver without ascites From spironolactone 100 mg PO DAILY 30 tabs 0RF liver cirrhosis K70.30 - Alcoholic cirrhosis of liver without ascites To spironolactone 50 mg PO DAILY 30 tabs 0RF liver cirrhosis K70.30 - Alcoholic cirrhosis of liver without ascites Discontinued lisinopril-hydrochlorothiazide 20-25 mg Discontinued Reason: Doctor's Order 1 tab PO DAILY 90 days 90 tabs 0RF I10 - Essential (primary) hypertension
[2025-07-09 15:48] VITALS: BP 100/50; PULSE 82; RESP 18; O2SAT 100; BMI 35.0
--- OUTSIDE RECORDS SUMMARY | 2025-07-09 19:26 | XMS_ITS | Patient Health Record ---
Author Organization [facility] Address [address] [place] [address] Care Team Providers Care Clinical Asst Name Role Phone Dalton Pisano MD Primary Care Provider Hector Virgen Unavailable [phone] Allergies No Known Allergies Reason For Referral Referring Provider First Name Dalton Referring Provider Last Name Po Referring Provider Speciality Internal M edicine Referred Organization [facility] Referred Provider Hector Alcantar Referred Address [address],[place], [place],[address], Referred Provider Specialty Gastroentero logy General Notes Mirian Chan 2024 01:03:54 PM EST > requested an [facility] referral for visit with Dr. Alcantar on 07-29-[address] pisano' office Referral Priority Routine Medications Medication SIG (Take, Route, Frequency, Duration) Notes Start Date End Date Status Lisinopril 10 MG Tablet 1 tablet Orally Once a day Active Omeprazole 40 MG Capsule Delayed Release 1 Orally Once a day in the morning; Duration: 90 days 01/09/2023 Activ e Social History Tobacco Use: Social History Observation Description Date Details (start date - stop date) Current Smoker NA - NA Social History Drugs/Alcohol: Social Info Question Answer Notes Alcohol Screen Did you have a drink containing alcohol in the past year? Yes How often did you have a drink containing alcohol in the past year? 4 or more times a week (4 points) How many drinks did you have on a typical day when you were drinking in the past year? 3 or 4 drinks (1 point) How often did you have 6 or more drinks on one occasion in the past year? Weekly (3 points) Points 8 Interpretation Positive Tobacco Use: Social Info Question Answer Notes Tobacco Use/Smoking Patient is a current smoker How many cigarettes a day do you smoke? 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 Section Notes: Nonsmoker; at least 4-5 beer s/drinks per day Smokes a few cigarettes johnny y; at least 4-5 beers/drinks per day Smokes a few cigarettes johnny y; at least 4-5 beers/drinks per day Problems Problem Type SNOMED Code ICD Code Onset Dates Problem Status W/U Status Risk Notes Problem Screening for malignant neoplasm of colon (467295405) Encounter for screening for malignant neoplasm of colon (Z12.11) Active confirmed Problem History of adenomatous polyp of colon (626950500) History of adenomatous polyp of colon (Z86.010) Active confirmed Problem Esophageal varices without bleeding (46970781) Esophageal varices without bleeding (I85.00) Active confirmed Problem Alcoholic cirrhosis (735537847) 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) Active confirmed Problem Portal hypertension (23008372) Portal hypertension (K76.6) Active confirmed Problem History of polyp of colon (situation) (445270699) History of colon polyps (Z86.010) Active confirmed Problem Esophageal varices (63069012) Esophageal varices (I85.00) Active confirmed Problem Gastritis (2473078) Gastritis (K29.70) Active confirmed Problem Anemia (397152082) Anemia, unspecified type (D64.9) Active confirmed Problem Pre-procedure evaluation check (952019301) Pre-procedural examination (Z01.818) Active confirmed Problem Gastric ulcer (144474409) Gastric ulcer (K25.9) Active confirmed Problem Diverticulosis of colon (857672899) Diverticulosis of colon (K57.30) Active confirmed Encounters Encounter Location Date Provider Diagnosis [facility] [address] [place] [phone] 07/30/2024 Hector Alcantar [facility] [address] [place] [phone] 12/03/2024 Hector Alcantar [facility] [address] [place] [phone] 03/20/2025 Hector Alcantar Plan Of Treatment Pending Test Test Name Order Date CHEM 7 PROFILE 01/09/2023 LIVER PROFILE 01/09/2023 LIVER PROFILE 07/31/2023 IRON + IBC (FE) 01/09/2023 CBC w DIFF 01/09/2023 CBC w DIFF 07/31/2023 ALPHA-FETOPROTEIN,TUMOR MARKER Prothrombin Time INR 07/31/2023 Liver Panel 09/27/2023 Hepatitis A Antibody IgG 01/09/2023 US abdomen complete 07/31/2023 Future Test Test Name Order Date COLONOSCOPY 12/26/2017 UPPER GI ENDOSCOPY 01/09/2023 COLONOSCOPY 01/09/2023 Next Appt Details Provider Name:Hector Alcantar , 07/29/2025 02:00:00 PM, [address], [address], [place], [address], Insurance Providers Payer Name Payer Address Payer Phone Subscriber Number Group Number Insured Name Patient Relationship to Insured Coverage Start Date Coverage End Date [facility] [employer] [address] [place] [address] [id number] ADRIANA GRIJALVA Self - patient is the insured Medical (General) History Medical History History ICD Code Hypertension Denies MO,DM,CVA,Lung disease,renal dise ase Alcohol related cirrhosis se [...]
--- OUTSIDE RECORDS SUMMARY | 2025-07-09 19:26 | XMS_ITS | Encounter Summary ---
Author Organization [facility] Address [address] [place] [address] Care Team Providers Care Track Moving Machine Operator Name Role Phone Pcp, No Primary Care Provider Unavailabl e Encounter Details Date Type Department Care Team (Late st Contact Info) Description 07/15/2015 Scanned Document [address] [phone] Provider, Generic Social History Tobacco Use Types [...] on filedocumented in this encounter Care Teams Track Moving Machine Operator Relationship Specialty Start Date End Date Pcp, No PCP - General General Medicine 07/14/15 documented as of this encounter
--- OUTSIDE RECORDS SUMMARY | 2025-07-09 19:26 | XMS_ITS | Clinical Summary ---
Author Organization [facility] Address [address] [place] [address] Care Team Providers Care Signal Maintainer Name Role Phone Pcp, No Primary Care [...] of 2) 2013 COVID-19 Vaccine ( - 2024-2 6 season) 2025 RSV Vaccine 50 years and old er and Patients (1 - 1-dose 75+ series) 2038 Hepatitis B Vaccines Aged Out No long er eligible based on patient's age to complete this topic Care Teams Signal Maintainer Relationship Specialty Start Date End Date Pcp, No PCP - General General Medicine 07/14/15
== END 2025-07-09 16:37 | disposition home or self-care (01) ==
LOC: HO.HMCH 15:34
PROVIDERS: PCP Internal Medicine; Visit Provider Internal Medicine
DX: I10 Essential (primary) hypertension (principal); K70.30 Alcoholic cirrhosis of liver without ascites; Z68.35 Body mass index [BMI] 35.0-35.9, adult; E66.9 Obesity, unspecified; F10.10 Alcohol abuse, uncomplicated; R18.8 Other ascites; F17.210 Nicotine dependence, cigarettes, uncomplicated